=== PATIENT | female | born 1995 | race Caucasian/White ===

== ENCOUNTER 2022-03-26 09:24 | Outpatient (CLI) | payer BC, SELFPAY ==
[2022-03-26 11:37] LABS: Hepatitis B Surface Antigen* Negative (Negative)
[2022-03-26 11:54] LABS: Hepatitis C Virus Antibody* Negative (Negative)
[2022-03-26 13:10] LABS: HIV 1/2/P24 Combo Screen* Negative (Negative)
[2022-03-26 13:36] LABS: Chlamydia DNA Amplified* NOT DETECTED (No Detected); GC DNA Amplified* NOT DETECTED (No Detected)
[2022-03-27 17:49] LABS: Varicella-Zoster Virus Ab, IgG 132.1 IV
[2022-03-27 17:53] LABS: Rubella Antibody IgG 6.4 IU/mL
[2022-03-28 11:46] LABS: Rapid Plasma Reagin (RPR) Non Reactive (Non Reactive)
== END 2022-03-26 09:25 | disposition home or self-care (01) ==
PROVIDERS: PCP Family Medicine; Visit Provider Advanced Practice Midwife
DX: Z34.91 Encounter for supervision of normal pregnancy, unspecified, first trimester (principal); Z3A.08 8 weeks gestation of pregnancy
CPT/HCPCS: 76817; 86592; 86703; 86762; 86787; 86803; 86850; 86900; 86901; 87086; 87340; 87491; 87591; 93976

== ENCOUNTER 2022-05-03 12:48 | Outpatient (CLI) | payer BC, SELFPAY ==
--- OUTSIDE RECORDS SUMMARY | 2022-05-03 12:54 | XMS_ITS | Clinical Summary ---
:1995 Author Organization [email or web address] [facility] [employer] [facility] [place] [address] Care Team Providers Name Role Phone Pcp, No Primary Care Provider Unavailable Allergies No known active allergies Medications Medication Sig Dispensed Refills Start Date End Date Status acetaminophen (TYLENOL Take 1,000 mg by 0 12/23/2018 Active EXTRA STRGTH) 500 mg mouth. tablet ibuprofen (ADVIL; Take 1 tablet by 30 tablet 1 03/01/2019 Active MOTRIN) 600 mg mouth every 6 tabletIndications: hours. Maximum of Vaginal delivery 3200 mg in 24 hours. Breast Pump - For home use. 1 Device 0 03/01/2019 A ctive PurchaseIndications: Gestation age at Vaginal delivery delivery: 39 weeks. Reason for need: . Length of need: 99 months oxyCODONE (ROXICODONE) Take 1 Tablet (5 10 Tablet 0 03/26/2021 Active 5 mg immediate release mg) by mouth every tabletIndications: 4 hours if needed Lower abdominal pain for Pain. Active Problems Problem Noted Date Vaginal delivery 02/27/2019 Essential hypertension complicating or reason for care during 12/31/2018 care 09/03/2018 Overview: . SVDx1. FATMATA 03/12/19 by LMP/FTU FOB: Timmy H/o gestational hypertension A positive Rubella equivocal Normal Ob50 (76), Hg 12.3 Normal anatomy 10/29/18 Encounter for supervision of normal 09/03/19 Overview: . SVDx1. FATMATA 03/12/19 by LMP/FTU FOB: Timmy H/o gestational hypertension A positive Rubella equivocal Normal Ob50 (76), Hg 12.3 Normal anatomy 10/29/18 GBS negative CHTN/GHTN Unspecified asthma(493.90) Resolved Problems Problem Noted Date Resolved Date Other acne 04/17/2011 12/09/2018 Dysmenorrhea 04/17/2011 12/09/2018 Recurrent cold sores 04/17/2011 12/09/2018 Adjustment disorder with depressed mood 04/17/2011 12/09/2018 ADHD (attention deficit hyperactivity disorder) 08/11/2010 12/09/2018 Overview: Diagnosed in 5th grade Generalized headaches 08/11/2010 12/09/2018 Allergic rhinitis, cause unspecified 05/2019 Immunizations Name Administration Dates Next Due DTP-HIB 08/07/1996, 04/14/1996, 1995, 1995 DTaP 11/16/1999, 08/07/1996, 04/14/1996, 1995, 1995 HIB-HepB (Comvax) 08/07/1996, 04/14/1996, 1995, 1995 Hepatitis B (Peds) 05/02/2010, 08/07/1996, 1995, 1995 Hepatitis B, Unspecified 1995 Human Papilloma Virus Vaccine 09/01/2007, 04/29/2007, 200608/29/2007 Inactivated Polio Vaccine 11/16/1999, 04/14/1996, 1995 , 1995 Influenza A (H1N1), Inactivated (Age 1107/21/2009 >=3 Years) Influenza Virus, Unspecified 06/30/2014, 06/16/2012, 010, 07/26/2009, 07/05/2008, 07/18/2006, 07/27/2005 Influenza, High-dose Inactivated 09/03/2018, 05/24/2016 Influenza, IIV3 (Age 6-35 mos) 06/30/2014, 06/16/2012 Influenza, IIV3 (Age >=3 years) 07/14/2010, 07/26/2009, 11/0 11/2007, 07/18/2006, 07/27/2005 Influenza, IIV4 05/24/2016 MMR 04/14/1996 MMRV 11/16/1999 Meningococcal Vaccine (Menactra) 02/20/2007 Meningococcal Vaccine (Menveo) 08/19/2013 Polio Virus, Unspecified 11/16/1999, 04/14/1996, 1995, 1995 Td (Age >=7 Years) 02/13/2018 Tdap 12/31/2018, 02/20/2007 Varicella Vaccine 04/29/2007, 11/16/1999 Family History Medical History Relation Name Comments Good Health Brother Good Health Father Psychiatric illness Father adhd Hypertension Maternal Grandmother Hypertension Mother Other Mother migraines when s he was younger Good Health Sister Psychiatric illness Sister adhd No Known Problems Son Heart Disease No Family History Relation Name Status Comments Brother Father Maternal Grandmother Mother Sister Son Alive Social History Tobacco Use Types Packs/Day Years Used Date Never Smoker Smokeless Tobacco: Never Used Tobacco Cessation: Counseling Given: No Comments: No exposure. Alcohol Use Standard Drinks/Week Comments No 0 (1 standard drink = 0.6 oz pure alcoho l) Sex Assigned at Date Recorded Not on file Obstetrics History Para Term AB IAB SAB Ectopic Multiple Living Live Births 3 2 2 1 1 2 2 Date Outcome GA Total Labor/2nd/3rd Weight Sex Delivery Anes PTL Beena A 1 A5 Name Clin Labor 03/25 Term 38w 3.06 kg M Epidu N Essence /2012 0d (6 lb ral ng 12 oz) 05/22 SAB 18 02/27 Term 38w 0h 10m 3.11 kg M Vag IV Essence 8 9 KOKT 1d (6 lb Meds, ng VY,BB 13.7 Epidu QUE oz) ral ANY Delivery [facility]: [facility] ([facility]) Last Filed Vital Signs Vital Sign Reading Time Taken Comments Blood Pressure 119/80 03/26/2021 11:12 AM CDT Pulse 82 03/26/2021 11:26 AM CDT Temperature 36.7 ??C (98.1 ??F) 03/26/2021 7:06 AM CDT Respiratory Rate 18 03/26/2021 7:06 AM CDT Oxygen Saturation 96% 03/26/2021 11:26 AM CDT Inhaled Oxygen Concentration - - Weight 91.4 kg (201 lb 6.4 oz) 03/26/2021 7:06 AM CDT Height 149.9 cm (4' 11) 03/26/2021 7:06 AM CDT Body Mass Index 40.68 03/26/2021 7:06 AM CDT Plan of Treatment Health Maintenance Due Date Last Done Comments COVID-19 vaccine series (#1) 1995 Depression screening for age 12+ 2007 BMI (ht and wt on same day) for 2013 age 18+ Influenza for age 9-49 05/03/2022 05/24/2016, 06/30/2014, 06/16/2012, Additional history exists Pap test for age 21-65 04/17/2024 04/17/2021 Tetanus booster 12/31/2028 12/31/2018, 02/13/2018, 02/20/2007 Hepatitis C screening for age Completed 08/15/2012 18-79 Tdap Completed 12/31/2018, 02/20/2007 Results Not on filefrom Last 3 Months Insurance Payer Benefit Plan / Subscriber ID Effective Dates Phone Addre ss Type Group [employer] [place] [employer] [id number] 2020-Present [address] [address] [place] [address] Advance Directives Latest Code Status on File Code Status Date Activated Date Inactivated Comments Full Code 02/26/2019 1:58 PM 02/27/2019 6:24 PM Full Code 02/18/2019 3:25 PM 02/18/2019 7:14 PM Full Code 12/09/2018 10:53 PM 12/10/2018 4:31 AM Care Teams Senior Clinical Research Scientist Relationship Specialty Start Date End Date Pcp, No PCP - General 02/27/19 .
--- NOTE | 2022-05-03 13:00 | CRLHL7_ITS ---
For Patients: As a result of the Century Cures Act, medical imaging exams and procedure reports are released immediately into your electronic medical record. You may view this report before your referring provider. If you have questions, please contact your health care provider. INDICATION: Supervision of normal . TECHNIQUE: Ultrasound OB pelvis transabdominal and transvaginal. Real-time beasley-scale imaging of the pelvis was performed. COMPARISON: None. FINDINGS: There is a single intrauterine gestation. The embryo demonstrates a regular cardiac rate measuring 155 beats per minute. The embryo`s crown rump length measurement of 8.1 cm corresponds to a gestational age of 14 weeks 0 days with a sonographic due date of 11/01/2022. NT measures 1.8 mm. There is a normal appearing yolk sac. There are no gross abnormalities noted within the embryo at this early state of development. The placenta has not yet developed. Previously seen suspected subchorionic hemorrhage is no longer visualized. Prominent vessels anterior to the placenta The ovaries are of normal size. Right ovary measures 4.3 x 2.2 x 1.6 cm. Left ovary measures 7.2 x 5.8 x 5.6 cm. Left corpus luteum cyst left ovary measuring 6.1 x 5.4 x 5.0 cm per there are no suspicious fluid collections noted in the cul-de-sac. IMPRESSION: 1. Single live intrauterine with estimated gestational age of 14 weeks 0 day. Estimated date of delivery 11/01/2022. 2. Previously seen subchorionic hemorrhage has resolved. 3. Heterogeneous area anterior to the placenta with prominent vessels and hypervascularity of unknown significant. Consider level 2 ultrasound to exclude placenta accreta. 4. NT measures 1.8 mm Dictated by Sohan Joel MD @ 05/04/2022 7:37:19 AM (Electronically Signed)
== END 2022-05-03 12:49 | disposition home or self-care (01) ==
LOC: US 12:49
PROVIDERS: PCP Family Medicine; Visit Provider Obstetrics & Gynecology
DX: Z34.92 Encounter for supervision of normal pregnancy, unspecified, second trimester (principal); Z3A.14 14 weeks gestation of pregnancy
CPT/HCPCS: 36415; 76801; 76813; 84163; 84702

== ENCOUNTER 2022-05-21 09:05 | Outpatient (CLI) | payer BC, SELFPAY ==
--- OUTSIDE RECORDS SUMMARY | 2022-05-21 09:13 | XMS_ITS | Clinical Summary ---
:1995 Author Organization [employer] [facility] [employer] [facility] [place] [address] Care Team Providers Name Role Phone Pcp, [...] Epidu QUE oz) ral ANY Delivery Location: [facility] ([facility]) Last Filed Vital Signs Vital [...] Phone Addre ss Type Group [employer] [place] [employer] [id number] 2020-Present [address] [address] [place] [address] Advance Directives Latest Code Status on File Code Status Date Activated Date Inactivated Comments Full Code 02/26/2019 1:58 PM 02/27/2019 6:24 PM Full Code 02/18/2019 3:25 PM 02/18/2019 7:14 PM Full Code 12/09/2018 10:53 PM 12/10/2018 4:31 AM Care Teams Zoning Technician Relationship Specialty Start Date End Date Pcp, No PCP - General 02/27/19 .
[2022-05-21 14:18] LABS: Alanine Aminotransferase* 23 U/L (4-35); Aspartate Amino Transferase* 24 U/L (12-35); Bilirubin Direct* 0.2 mg/dL (0.0-0.5); Bilirubin Total* 0.4 mg/dL (0.1-1.5)
[2022-05-22 07:35] LABS: Creatinine* 0.5 mg/dL (0.5-1.5); Estimated Glomerular Filt Rate 132 ml/min
== END 2022-05-21 09:06 | disposition home or self-care (01) ==
PROVIDERS: PCP Family Medicine; Visit Provider Obstetrics & Gynecology
DX: Z34.92 Encounter for supervision of normal pregnancy, unspecified, second trimester (principal); R82.2 Biliuria; I10 Essential (primary) hypertension; Z3A.16 16 weeks gestation of pregnancy
CPT/HCPCS: 82247; 82248; 82565; 84450; 84460; 87086

== ENCOUNTER 2022-05-24 09:05 | Outpatient (CLI) | payer BC, SELFPAY ==
--- OUTSIDE RECORDS SUMMARY | 2022-05-24 08:44 | XMS_ITS | Clinical Summary ---
:1995 Author Organization [employer] [facility] [employer] [facility] [place] [address] Care Team Providers Name Role Phone Pcp, [...] Epidu QUE oz) ral ANY Delivery Location: [facility] ([facility]) Last Filed Vital Signs Vital [...] Type Group [employer] [place] [employer] [id number] 2020-Present [address] [address] [place] [address] Advance Directives Latest Code Status on File Code Status Date Activated Date Inactivated Comments Full Code 02/26/2019 1:58 PM 02/27/2019 6:24 PM Full Code 02/18/2019 3:25 PM 02/18/2019 7:14 PM Full Code 12/09/2018 10:53 PM 12/10/2018 4:31 AM Care Teams Metal Cabinet Finisher Relationship Specialty Start Date End Date Pcp, No PCP - General 02/27/19 .
[2022-05-24 10:57] LABS: Creatinine Urine 221.7 mg/dL; Total Protein Urine < 5 mg/dL
[2022-05-24 23:48] LABS: Collection Time Urine 24 Hours; Total Protein 24 Hour Urine 35 mg/dL; Total Volume 24 Hour Urine 700 ml; Urine Creatinine mg/24 Hour 0 mg/Day
== END 2022-05-24 09:06 | disposition home or self-care (01) ==
PROVIDERS: PCP Family Medicine; Visit Provider Obstetrics & Gynecology
DX: I10 Essential (primary) hypertension (principal)
CPT/HCPCS: 82570; 84156

== ENCOUNTER 2022-06-13 12:41 | Outpatient (CLI) | payer BC, SELFPAY ==
--- OUTSIDE RECORDS SUMMARY | 2022-06-13 12:58 | XMS_ITS | Clinical Summary ---
:1995 Author Organization [employer] [facility] [employer] [facility] [place] [address] Care Team Providers Name Role Phone Pcp, [...] Epidu QUE oz) ral ANY Delivery Location: [facility] ([facility]) Last Filed Vital Signs Vital [...] Phone Addre ss Type Group [employer] [place] [employer] [id number] 2020-Present [address] [address] [place] [address] Advance Directives Latest Code Status on File Code Status Date Activated Date Inactivated Comments Full Code 02/26/2019 1:58 PM 02/27/2019 6:24 PM Full Code 02/18/2019 3:25 PM 02/18/2019 7:14 PM Full Code 12/09/2018 10:53 PM 12/10/2018 4:31 AM Care Teams Wireless Sales Representative Relationship Specialty Start Date End Date Pcp, No PCP - General 02/27/19 .
== END 2022-06-13 12:42 | disposition home or self-care (01) ==
LOC: US 12:42
PROVIDERS: PCP Family Medicine; Visit Provider Pediatrics Neonatal-Perinatal Medicine
DX: O10.912 Unspecified pre-existing hypertension complicating pregnancy, second trimester (principal); Z3A.19 19 weeks gestation of pregnancy
CPT/HCPCS: 76811

== ENCOUNTER 2022-07-13 09:37 | Outpatient (CLI) | payer BC, SELFPAY ==
--- OUTSIDE RECORDS SUMMARY | 2022-07-13 09:51 | XMS_ITS | Clinical Summary ---
:1995 Author Organization [employer] [facility] [employer] [facility] [place] [address] Care Team Providers Name Role Phone Pcp, [...] Epidu QUE oz) ral ANY Delivery Location: [facility] ([facility]) Last Filed Vital Signs Vital [...] Phone Addre ss Type Group [employer] [place] [employer] [id number] 2020-Present [address] [address] [place] [address] Advance Directives Latest Code Status on File Code Status Date Activated Date Inactivated Comments Full Code 02/26/2019 1:58 PM 02/27/2019 6:24 PM Full Code 02/18/2019 3:25 PM 02/18/2019 7:14 PM Full Code 12/09/2018 10:53 PM 12/10/2018 4:31 AM Care Teams Medical Fee Clerk Relationship Specialty Start Date End Date Pcp, No PCP - General 02/27/19 .
== END 2022-07-13 09:38 | disposition home or self-care (01) ==
LOC: NFLDREF 09:38
PROVIDERS: PCP Family Medicine; Visit Provider Obstetrics & Gynecology
DX: O26.899 Other specified pregnancy related conditions, unspecified trimester (principal); M54.50 Low back pain, unspecified
CPT/HCPCS: 87086

== ENCOUNTER 2022-08-08 09:06 | Outpatient (CLI) | payer BC, SELFPAY ==
--- OUTSIDE RECORDS SUMMARY | 2022-08-08 09:08 | XMS_ITS | Clinical Summary ---
:1995 Author Organization [employer] [facility] [employer] [facility] [place] [address] Care Team Providers Name Role Phone Pcp, [...] Epidu QUE oz) ral ANY Delivery Location: [facility] ([facility]) Last Filed Vital Signs [...] 04/17/2021 Tetanus booster 12/31/2028 12/31/2018, 02/13/2018, 02/20/2007 HIV for age 15-65 Completed 08/15/2012 Hepatitis C screening for age Completed 08/15/2012 18-79 Tdap Completed 12/31/2018, 02/20/2007 Results Not on filefrom Last 3 Months Insurance Payer Benefit Plan / Subscriber ID Effective Dates Phone Addre ss Type Group [employer] [place] [employer] [id number] 2020-Present [address] [address] [place] [address] Advance Directives Latest Code Status on File Code Status Date Activated Date Inactivated Comments Full Code 02/26/2019 1:58 PM 02/27/2019 6:24 PM Full Code 02/18/2019 3:25 PM 02/18/2019 7:14 PM Full Code 12/09/2018 10:53 PM 12/10/2018 4:31 AM Care Teams Product Developer Relationship Specialty Start Date End Date Pcp, No PCP - General 02/27/19 .
[2022-08-10 10:47] LABS: Rapid Plasma Reagin (RPR) Non Reactive (Non Reactive)
== END 2022-08-08 09:07 | disposition home or self-care (01) ==
LOC: NFLDREF 09:06
PROVIDERS: PCP Family Medicine; Visit Provider Obstetrics & Gynecology
DX: Z34.90 Encounter for supervision of normal pregnancy, unspecified, unspecified trimester (principal)
CPT/HCPCS: 86592

== ENCOUNTER 2022-08-27 21:06 | Outpatient (CLI) | payer BC, SELFPAY ==
[2022-08-27] VITALS (11 sets, daily range): BP systolic 125–146; BP diastolic 70–88; PULSE 8–105; O2SAT 80–99
[2022-08-27 22:29] LABS: Hematocrit 33.9 % (33.0-51.0); Hemoglobin* 11.5 gm/dL (12.0-16.0); Mean Corpuscular HGB Conc 34 gm/dL (32-36); Mean Corpuscular Hemoglobin 28 pg (26-34); Mean Corpuscular Volume 84 fL (80-100); Platelet Count* 213 K/uL (140-440); Red Blood Count 4.05 m/uL (4.00-5.20); White Blood Count* 6.25 K/uL (4.50-11.00)
[2022-08-27 22:34] LABS: Prothrombin Time 13.8 Seconds
[2022-08-27 22:35] LABS: Alanine Aminotransferase* 18 U/L (4-35); Aspartate Amino Transferase* 29 U/L (12-35); Blood Urea Nitrogen* 5 mg/dL (5-24); Creatinine* 0.5 mg/dL (0.5-1.5); Estimated Glomerular Filt Rate 132 ml/min; Fibrinogen* 449 mg/dL (200-450); Slide Review Reflex No
[2022-08-27 23:03] LABS: Total Protein Urine < 5 mg/dL
[2022-08-27 23:04] LABS: Creatinine Urine 310.4 mg/dL
--- NOTE | 2022-08-28 00:02 | PC.OBNST ---
NST Note NST Note Start: 08/27/22 21:30 Freq: ONCE Status: Active Protocol: Document 08/28/22 00:00 KORI (Rec: 08/28/22 00:01 [facility] [id number]) NST Note 4 Para (# of births) 2 EDC 11/01/22 Gestational Age In Weeks & Days 30 Weeks & 5 Days High Risk Factors High Blood Pressure - Preexisting Patient Presented with Complaint(s) of Decreased movement Other Complaints High blood pressures at home. Reactive Yes Appropriate for Gestational Age Yes LAUREANO Guardado, RN Date 08/27/22 Reactive Yes Appropriate for Gestational Age Yes LAUREANO Francis RN Date 08/27/22 OB NST charge Yes Complete NST Note via Write Note Yes The provider's electronic signature indicates the NST is reactive/appropriate for gestational age. *Note to provider: If an addendum is required, open the patient's chart and click on the note under the Nurse/Allied Health tab.
== END 2022-08-27 23:39 | disposition home or self-care (01) ==
LOC: OB OUT 21:07 → OB 21:08
PROVIDERS: PCP Family Medicine; Visit Provider Obstetrics & Gynecology
DX: Z34.93 Encounter for supervision of normal pregnancy, unspecified, third trimester (principal); Z3A.30 30 weeks gestation of pregnancy
CPT/HCPCS: 36415; 59025; 82565; 82570; 84156; 84450; 84460; 84520; 85027; 85384; 85610; 99213

== ENCOUNTER 2022-09-07 12:41 | Outpatient (CLI) | payer BC, SELFPAY ==
--- NOTE | 2022-09-07 13:00 | CRLHL7_ITS ---
For Patients: As a result of the Century Cures Act, medical imaging exams and procedure reports are released immediately into your electronic medical record. You may view this report before your referring provider. If you have questions, please contact your health care provider. INDICATION: Third trimester scan, evaluate growth. COMPARISON: 08/13/2022 TECHNIQUE: Real time beasley scale imaging of the fetus was performed. FINDINGS: Sonographic imaging demonstrates a single living intrauterine gestation. Fetus demonstrates a regular cardiac rate of 134 beats per minute. Fetus has a vertex position. The placenta lies anteriorly. Amniotic fluid volume appears normal and there is a single deepest vertical pocket: 4.2 cm. The estimated weight is 1868gm which lies at the 33rd %. On the prior OB ultrasound exam dated 08/13/2022 the estimated weight was at the 28th%. BPD 39th percentile. HC 42nd percentile. AC 60th percentile. FL 6th percentile. The HC/AC ratio measures 1.05 range (0.96-1.14). IMPRESSION: Sonographic gestational age 32 weeks 1 day and sonographic due date of 11/01/2022. Good correlation with dates. Normal interval growth. Estimated weight 33rd percentile. Abdominal circumference 60th percentile. Normal amniotic fluid with single deepest pocket 4.2 cm. Dictated by Horacio Perez MD @ 09/09/2022 9:18:30 AM (Electronically Signed)
== END 2022-09-07 12:42 | disposition home or self-care (01) ==
PROVIDERS: PCP Family Medicine; Visit Provider Obstetrics & Gynecology
DX: O10.913 Unspecified pre-existing hypertension complicating pregnancy, third trimester (principal); Z3A.32 32 weeks gestation of pregnancy
CPT/HCPCS: 76816

== ENCOUNTER 2022-09-23 15:03 | Outpatient (CLI) | payer BC, SELFPAY ==
[2022-09-23] VITALS (35 sets, daily range): BP systolic 125–156; BP diastolic 79–121; PULSE 80–104; RESP 16; TEMP 36.2–36.6; O2SAT 95–99; BMI 40.0
--- NOTE | 2022-09-23 15:28 | RESP.RT ---
Patient has history of Asthma, no home respiratory medications. On room air, SaO2 97%, breathing regular/easy, rate 16/minute. BBS with good air movement on the right, good air movement on the left with end expiratory musical wheeze.
--- NOTE | 2022-09-23 15:30 | ED.NURSE ---
OB RN in room for OB assessment.
--- NOTE | 2022-09-23 15:40 | ED.SOB ---
HPI - SOB/Dyspnea General Chief Complaint: Shortness of Breath/Dyspnea Stated Complaint: Asthma Time Seen by Provider: 09/23/22 15:06 History of Present Illness HPI Narrative: This 27-year-old female is 34 weeks . She comes in reporting some shortness of breath. She states that she and her were doing some construction type of work in the basement and she began to feel short of breath yesterday. She states that her symptoms have persisted into today. She does not use any ongoing medicines for breathing but states that she has had some reactive airway symptoms in the past. She does not report any fevers. She arrives with normal vital signs regarding her breathing. Her oximetry is at 96% on room air and her pulse is in normal range. She is not using accessory muscles for breathing. She also states that she has not felt the baby moving for the past 5-6 hours. Related Data Home Medications Medication Instructions Recorded Confirmed vitamins no.144-folic 2 tab PO DAILY 08/27/22 09/21/22 acid 400 mcg chewable tablet () Previous Rx's Medication Instructions Recorded labetalol 100 mg tablet 100 mg PO BID #30 tabs 06/12/22 omeprazole 20 mg capsule,delayed 20 mg PO QDAY #30 caps 09/14/22 release sertraline 100 mg tablet See Rx Instructions .Route 09/14/22 .COMPLEX #90 tabs Allergies Allergy/AdvReac Type Severity Reaction Status Date / Time No Known Allergies Allergy Verified 09/21/22 14:26 Review of Systems Status of ROS: Reports: 10 or more systems reviewed and unremarkable except as noted in History and below Narrative: Constitutional: No fevers, no weight gain or loss. Eyes: No discharge. No vision changes. HENT: No congestion, no sore throat, no ear pain. Cardiovascular: No chest pain, no palpitations. Respiratory: Shortness of breath as described above. Occasional cough. Gastrointestinal: No abdominal pain, no vomiting, no diarrhea. Genitourinary: No dysuria, no hematuria. Musculoskeletal: Normal range of motion. Skin: No rashes, no pruritis. Neurological: No dizziness, weakness, sensory change, speech change. Endo/Heme/Allergies: No bruising or bleeding. No polydipsia. Pysch: no suicidality, no anxiety, no insomnia. All other systems reviewed and are negative. [facility] Medical History (Updated 09/23/22 @ 17:34 by Howard Tang MD) Anxiety Asthma History of endometriosis Hypertension Migraines Vaginal delivery (02/27/19) Surgical History (Updated 09/14/22 @ 14:07 by Catie Wilson MD) History of tonsillectomy Status post laparoscopy (05/10/21) [place] teeth extracted Family History (Updated 03/26/22 @ 16:51 by Susu Meléndez CNM) Paternal Grandmother Breast cancer, Onset Age: 65 Paternal Grandfather Colon cancer, Onset Age: 70 Prostate cancer Uncle Suicide Family/Other Heart disease Father High blood pressure Mother High blood pressure Sister High blood pressure Brother High blood pressure Social History (Updated 03/20/22 @ 11:04 by Rayshawn Gonzalez) Narrative: current non-drinker of alcohol non-smoker Smoking Status: Never smoker How often do you have a drink containing alcohol: never How often do you have six or more drinks on one occasion: Never AUDIT-C Alcohol total score: 0 Non-prescribed substance use: denies use Little interest or pleasure in doing things: not at all Feeling down, depressed, or hopeless: not at all Exam Narrative: Exam Narrative: Constitutional: Well-developed, well-nourished, no acute distress. HEENT: Normocephalic, atraumatic. Neck: Normal range of motion. Nontender. Supple. Heart: Regular. No murmurs. Normal rate. Intact distal pulses. Lungs: A few faint wheezes are heard at the end of expiration bilaterally. Abdomen: Gravid. Normal bowel sounds. Nontender. No rebound tenderness. Genitalia: Deferred. Back: No midline tenderness. Normal range of motion. Extremities: Normal range of motion. No injury. Skin: Intact. No rash. Warm. No erythema or pallor. Neurologic: No altered sensation. No weakness. Alert and oriented. Psychiatric: No suicidality. No anxiety or depression. No insomnia. Nursing notes and vitals signs are reviewed. Const: Vital Signs, click to edit/add: Vital Signs - 24 hr 09/23/22 15:05 09/23/22 15:19 09/23/22 15:30 Temperature 97.1 F L Pulse Rate 93 93 Pulse Rate [Pulse Oximeter] 94 Blood Pressure Blood Pressure [Ri ght Upper Arm] 151/121 H Pulse Oximetry 95 97 96 Oxygen Delivery Me thod Room Air 09/23/22 15:45 09/23/22 15:48 09/23/22 15:49 Temperature Pulse Rate 92 96 80 Pulse Rate [Pulse Oximeter] Blood Pressure 147/95 H Blood Pressure [Ri ght Upper Arm] Pulse Oximetry 95 95 99 Oxygen Delivery Me thod 09/23/22 15:54 09/23/22 15:55 09/23/22 16:00 Temperature Pulse Rate 93 93 89 Pulse Rate [Pulse Oximeter] Blood Pressure 125/90 H Blood Pressure [Ri ght Upper Arm] Pulse Oximetry 99 99 99 Oxygen Delivery Me thod 09/23/22 16:01 09/23/22 16:02 09/23/22 16:15 Temperature Pulse Rate 86 87 90 Pulse Rate [Pulse Oximeter] Blood Pressure 132/91 H Blood Pressure [Ri ght Upper Arm] Pulse Oximetry 97 95 96 Oxygen Delivery Me thod 09/23/22 16:19 09/23/22 16:30 09/23/22 16:32 Temperature Pulse Rate 80 83 85 Pulse Rate [Pulse Oximeter] Blood Pressure 134/85 138/90 H Blood Pressure [Ri ght Upper Arm] Pulse Oximetry 98 99 98 Oxygen Delivery Me thod 09/23/22 16:33 09/23/22 16:45 09/23/22 16:47 Temperature Pulse Rate 87 96 92 Pulse Rate [Pulse Oximeter] Blood Pressure 145/83 H Blood Pressure [Ri ght Upper Arm] Pulse Oximetry 99 99 97 Oxygen Delivery Me thod 09/23/22 16:48 09/23/22 17:00 09/23/22 17:02 Temperature Pulse Rate 94 89 86 Pulse Rate [Pulse Oximeter] Blood Pressure 147/102 H Blood Pressure [Ri ght Upper Arm] Pulse Oximetry 98 99 99 Oxygen Delivery Me thod 09/23/22 17:03 09/23/22 17:15 09/23/22 17:17 Temperature Pulse Rate 103 H 98 96 Pulse Rate [Pulse Oximeter] Blood Pressure 144/90 H Blood Pressure [Ri ght Upper Arm] Pulse Oximetry 99 99 99 Oxygen Delivery Me thod Course Vital Signs Vital signs: Initial Vital Signs Temperature 97.1 F L 09/23/22 15:05 Temperature Source Temporal Artery Scan 09/23/22 15:05 Pulse Rate 94 09/23/22 15:05 Blood Pressure 151/121 H 09/23/22 15:05 Blood Pressure Mean 131 09/23/22 15:05 Blood Pressure Position Supine 09/23/22 15:05 Pulse Oximetry 95 09/23/22 15:05 Oxygen Delivery Method 09/23/22 15:05 Vital Signs Temperature 97.1 F L 09/23/22 15:05 Pulse Rate 94 09/23/22 15:05 Blood Pressure 151/121 H 09/23/22 15:05 Pulse Oximetry 95 09/23/22 15:05 Oxygen Delivery Method 09/23/22 15:05 Temperature 97.1 F L 09/23/22 15:05 Pulse Rate 96 09/23/22 17:17 Blood Pressure 144/90 H 09/23/22 17:17 Pulse Oximetry 99 09/23/22 17:17 Oxygen Delivery Method 09/23/22 15:05 MDM - SOB/Dyspnea MDM Narrative Medical decision making narrative: This patient comes in reporting some shortness of breath. She does have few very faint wheezes at the end of expiration. She does arrive with blood pressure at 150/110. She did receive a DuoNeb treatment and during this process her heart rate stayed stable and her blood pressure reduced down into the 120s. monitoring shows normal findings. She did also express concern that she might be leaking some fluid. AmniSure returns negative. An OB nurse was here to monitor the patient. At the time of discharge it is noted that her blood pressure increased again to 143/103. The patient tells me that she did not take her labetalol. Apparently she is taking 100 mg twice a day and is due to take it about an hour prior to the time of discharge. I did speak with Dr. Foster who wishes to have the patient transferred over to the Center to be monitored for a couple more hours regarding these matters. Lab Data Labs: Lab Results 09/23/22 Range/Units 16:05 Membrane Rupture Negative Discharge Plan Discharge Clinical Impression: Mild reactive airways disease, , Elevated blood pressure affecting in third trimester, antepartum Patient Disposition: Admitted As Inpatient Prescriptions: No Action omeprazole 20 mg capsule,delayed release(DR/EC) 20 mg PO QDAY Qty: 30 2RF 400 mcg tablet,chewable 2 tab PO DAILY labetalol 100 mg tablet 100 mg PO BID Qty: 30 2RF sertraline 100 mg tablet See Rx Instructions .ROUTE .COMPLEX Qty: 90 0RF Dose Instruction: TAKE 1 TABLET BY MOUTH EVERY DAY Rx Instructions: TAKE 1 TABLET BY MOUTH EVERY DAY Follow Up/Referrals: Horacio Santana MD [Primary Care Provider] -
[2022-09-23] MEDS: IPRAT-ALBUT 0.5-2.5 MG/3 ML NEB 1 NEB IH (15:47)
--- NOTE | 2022-09-23 16:13 | RESP.RT ---
DuoNeb given with On demand nebulizer, at 6 Lpm Oxygen flow meter. Pre-treatment SaO2 99%, B/P 147/95, 5 minutes into treatment SaO2 99%, B/P 125/90, post treatment SaO2 97% on room air, B/P 132/91. Patient able to take larger breath. BBS more air movement, slight louder end expiratory wheeze noted
[2022-09-23 17:14] LABS: Amnisure Rom* Negative
[2022-09-23] MEDS: LABETALOL HCL 100 MG TABLET PO (17:59)
[2022-09-23 18:46] LABS: Hematocrit 35.7 % (33.0-51.0); Hemoglobin* 11.7 gm/dL (12.0-16.0); Mean Corpuscular HGB Conc 33 gm/dL (32-36); Mean Corpuscular Hemoglobin 27 pg (26-34); Mean Corpuscular Volume 83 fL (80-100); Platelet Count* 207 K/uL (140-440); Red Blood Count 4.29 m/uL (4.00-5.20); White Blood Count* 6.81 K/uL (4.50-11.00)
[2022-09-23 18:47] LABS: Slide Review Reflex No
[2022-09-23 18:58] LABS: Total Protein Urine 8 mg/dL
[2022-09-23 18:58] LABS: Alanine Aminotransferase* 19 U/L (4-35); Aspartate Amino Transferase* 50 U/L (12-35); Blood Urea Nitrogen* 7 mg/dL (5-24); Creatinine* 0.5 mg/dL (0.5-1.5); Est. Creatinine Clearance* 239.62; Estimated Glomerular Filt Rate 132 ml/min
[2022-09-23 19:00] LABS: Creatinine Urine 256.7 mg/dL
--- NOTE | 2022-09-23 20:35 | PC.OBNST ---
NST Note NST Note Start: 09/23/22 17:49 Freq: ONCE Status: Discharge Protocol: Document 09/23/22 20:32 AVL (Rec: 09/23/22 20:35 AVL [id number]) NST Note 4 Para (# of births) 2 EDC 11/01/22 Gestational Age In Weeks & Days 34 Weeks & 3 Days High Risk Factors High Blood Pressure - Preexisting Patient Presented with Complaint(s) of Decreased movement If Observation after an injury, describe came in to the ED for asthma Reactive Yes Appropriate for Gestational Age Yes LAUREANO Francis RN Date 09/23/22 Reactive Yes Appropriate for Gestational Age Yes LAUREANO Monroe RNC Date 09/23/22 OB NST charge Yes Complete NST Note via Write Note Yes The provider's electronic signature indicates the NST is reactive/appropriate for gestational age. *Note to provider: If an addendum is required, open the patient's chart and click on the note under the Nurse/Allied Health tab.
== END 2022-09-23 20:10 | disposition home or self-care (01) ==
LOC: ED 17:38 → OB OUT 17:42 → OB 17:44
PROVIDERS: Emergency Provider Emergency Medicine Emergency Medical Services; PCP Family Medicine; Visit Provider Obstetrics & Gynecology
DX: O36.8130 Decreased fetal movements, third trimester, not applicable or unspecified (principal); O10.913 Unspecified pre-existing hypertension complicating pregnancy, third trimester; Z3A.34 34 weeks gestation of pregnancy
CPT/HCPCS: 36415; 59025; 82565; 82570; 84112; 84156; 84450; 84460; 84520; 85027; 94640; 99213; 99285; A9270

== ENCOUNTER 2022-09-27 13:48 | Outpatient (CLI) | payer BC, SELFPAY ==
[2022-09-27 17:37] LABS: Alanine Aminotransferase* 20 U/L (4-35); Aspartate Amino Transferase* 31 U/L (12-35); Creatinine* 0.6 mg/dL (0.5-1.5); Estimated Glomerular Filt Rate 126 ml/min
[2022-09-27 17:38] LABS: Blood Urea Nitrogen* 5 mg/dL (5-24)
[2022-09-27 19:44] LABS: Total Protein Urine < 5 mg/dL
[2022-09-27 20:21] LABS: Creatinine Urine 448.6 mg/dL
== END 2022-09-27 13:49 | disposition home or self-care (01) ==
PROVIDERS: PCP Family Medicine; Visit Provider Obstetrics & Gynecology
DX: O10.913 Unspecified pre-existing hypertension complicating pregnancy, third trimester (principal); Z3A.35 35 weeks gestation of pregnancy
CPT/HCPCS: 82565; 82570; 84156; 84450; 84460; 84520

== ENCOUNTER 2022-10-04 08:26 | Outpatient (CLI) | payer BC, SELFPAY ==
--- NOTE | 2022-10-04 08:45 | CRLHL7_ITS ---
For Patients: As a result of the Century Cures Act, medical imaging exams and procedure reports are released immediately into your electronic medical record. You may view this report before your referring provider. If you have questions, please contact your health care provider. INDICATION: HYPERTENSION TECHNIQUE: Real time beasley scale imaging of the fetus was performed as well as color Doppler and spectral Doppler analysis of the umbilical artery. COMPARISON: 09/07/2022 FINDINGS: Sonographic imaging demonstrates a single living intrauterine gestation. Fetus demonstrates a regular cardiac rate of 148 beats per minute. Fetus has a vertex position. The placenta lies anteriorly. Amniotic fluid volume appears normal and there is a single deepest pocket of 4.3 cm. The estimated weight is 2616gm which lies at the 29th %. On the prior OB ultrasound dated 09/07/2022 the estimated weight was at the 33rd percentile. BPD 52nd percentile. HC 73rd percentile. AC 42nd percentile. FL less than 3rd percentile. The fetus was active and demonstrated normal breathing movements. There was normal flexion and extension of the trunk and extremities. IMPRESSION: Normal biophysical profile score 8/8. Sonographic gestational age 35 weeks 5 days and sonographic due date of 11/03/2022. Good correlation with dates. Normal interval growth. Estimated weight 29th percentile. Abdominal circumference 42nd percentile. Femur length less than 3rd percentile. Dictated by Horacio Perez MD @ 10/04/2022 2:20:34 PM (Electronically Signed)
== END 2022-10-04 08:27 | disposition home or self-care (01) ==
LOC: US 08:27
PROVIDERS: PCP Family Medicine; Visit Provider Obstetrics & Gynecology
DX: O10.913 Unspecified pre-existing hypertension complicating pregnancy, third trimester (principal); Z3A.35 35 weeks gestation of pregnancy
CPT/HCPCS: 76816; 76819; 82565; 82570; 84156; 84450; 84460; 84520; 87081; 87653

== ENCOUNTER 2022-10-10 16:12 | Inpatient (IN) | payer BC, SELFPAY ==
[2022-10-10 16:35] VITALS: PULSE 101; O2SAT 98
[2022-10-10 16:36] VITALS: BP 136/85; PULSE 108
[2022-10-10 16:49] VITALS: BMI 41.8
[2022-10-10 16:58] VITALS: TEMP 36.7
[2022-10-10 17:39] LABS: SARS PCR* Negative SARS-CoV-2 (Negative)
[2022-10-10 17:47] LABS: Basophils Absolute Auto 0.01 K/uL (0.00-0.30); Basophils Percent Auto 0.1 % (0.0-3.0); Eosinophils Percent Auto 1.1 % (0.0-7.0); Hematocrit 31.8 % (33.0-51.0); Hemoglobin* 10.2 gm/dL (12.0-16.0); Immature Granulocytes Pct Auto 1.1 %; Lymphocytes Percent Auto 19.9 % (20-44); Mean Corpuscular HGB Conc 32 gm/dL (32-36); Mean Corpuscular Hemoglobin 27 pg (26-34); Mean Corpuscular Volume 84 fL (80-100); Neutrophils Absolute Auto 6.54 K/uL (1.7-7.0); Neutrophils Percent Auto 71.8 % (42.0-72.0); Platelet Count* 206 K/uL (140-440); RDW Coefficient of Variation % 12.9 % (11.5-15.5); Red Blood Count 3.79 m/uL (4.00-5.20); White Blood Count* 9.11 K/uL (4.50-11.00)
[2022-10-10 17:51] LABS: Slide Review Reflex No
[2022-10-10] MEDS: miSOPROStoL 25 MCG/0.25 TABLET VAGINAL ×2 (18:01→21:56)
--- NOTE | 2022-10-10 18:40 | P.LDBA_ITS ---
Subjective History of Present Illness Date Seen: 10/10/22 Narrative: Kylah is a 27 yo admitted to Labor and Delivery for induction of labor for Chronic HTN well controlled on medication. Her full history and physical was dictated by Dr. Baxter on 10/04/2022. Please see this for details. OB Problem list: 1. Chronic HTN-on 100mg Labetalol BID. IOL for elevated BP for both her previous children at 37 weeks (Preeclampsia vs Gest HTN?) * ASA at 12 weeks recommended. * 24 hour urine protein: 05/24/2022 35 mg * Growth ultrasounds at 32 and 36 weeks gestation: * 09/07/2022: EFW 4 lb 2 oz (32%), BPD 39%, HC 33%, AC 60%, FL 6%, SDP 4.2 cm * Weekly pre E labs starting at 32 week * 09/23/25 ED visit ( for SOB and had elevated BPs, then had center monitoring): BUN 7, creatinine 0.5, AST 50H, ALT 19. pr/cr ratio: 0.00 * 10/04/2022:USN: Vtx. BPP 8/8. SDP 4.3cm. EFW 2616 g, 5 lb 12 oz, 29%. BPD 52%, HC 73%, AC 42%, FL ,3% * 10/04/2022: Hemoglobin 10.8, platelets 194, BUN 7, creatinine 0.6, AST 33, ALT 18, urine protein/creatinine ratio: 0.01 * Antepartum testing weekly beginning at 32 weeks: scheduled * BMTZ on 10/04 and 10/05/2022 * IOL scheduled: ripening on 10/10/22 followed by pitocin IOL on 10/11/22 due to exacerbation of BP at 36wks. 2. Hx asthma 3. BMI 42.2 4. Left ovarian cyst found on dating [place]. Hx of a ruptured cyst. 5. Varicella and Rubella non-immune NEED MMR and Varicella vaccine pp 6. Increased anxiety/depression secondary to work stress * [facility] leave of absence 04/17/22 - 07/10/22 * start sertaline 50 mg po daily (04/23/22) * Sertraline increased to 100 mg p.o. daily (06/13/2022) 7. On NT US a area of prominent vessels and hypervascularity. Recommendation to consider a level 2 US to exclude placenta accreta: no apparent accreta. 8. Bilirubinuria (05/21/2022) * ALT, ALT, bilirubin: All normal 9. Suspected vasovagal event on 07-11-22 10. GERD, not responsive to diet, Tums and Pepcid. Begin omeprazole at 33 weeks. OB - Problem Based A/P Additional Plan (1) Encounter for induction of labor: Status: Acute (2) Chronic hypertension affecting : Status: Acute Plan ASSESSMENT:? 27 at 36 6/7 weeks gestation? complicated by:? 1. Chronic HTN-on 100mg Labetalol BID. 2. Hx asthma 3. BMI 42.2 4. Left ovarian cyst found on dating [place]. Hx of a ruptured cyst. 5. Varicella and Rubella non-immune NEED MMR and Varicella vaccine pp 6. Increased anxiety/depression secondary to work stress 7. On NT US a area of prominent vessels and hypervascularity. Recommendation to consider a level 2 US to exclude placenta accreta: no apparent accreta. 8. Bilirubinuria (05/21/2022) 9. Suspected vasovagal event on 07-11-22 10. GERD, not responsive to diet, Tums and Pepcid. Begin omeprazole at 33 weeks. Labor type: induced? Category 1 FHR pattern.?? Labor complicated by: Chronic HTN managed with medications. ? GBS negative? ? PLAN:? 1. Routine intrapartum cares as ordered. Induction started with Cytotec per protocol, patient declines Cook catheter. CNM team to manage labor per patient request due to [place]. Desires [facility] staff. 2. Monitoring per policy, continuous for Chronic HTN, patient has been stable on BP medications since beginning of . ? 3. Planning nitrous for . Candidate for analgesia of choice if desires.?? 4. Patient encouraged to reposition and ambulate to promote physiologic labor and .? 5. Anticipate ? Delivery/Labor/Induction Plan Plan: induction Induction method: per misoprostol protocol OB Exam Physical Exam Vital signs: Temp Pulse BP Pulse Ox 98.1 F 108 H 136/85 98 10/10/22 16:58 10/10/22 16:36 10/10/22 16:36 10/10/22 16:35 Narrative: Vitals Reviewed? Psychiatric:? Alert and oriented x3? HEENT:? Normocephalic, atraumatic? Neck:? Supple?? Lungs:? Clear to auscultation bilaterally? Heart:? Regular rate and rhythm, no murmur, rub or gallop? Abdomen:? Soft, nontender, and gravid. Vertex confirmed with cervical exam.? Extremities:? No edema or erythema? Detailed Labor and Delivery Exam Patient Gravid: Yes Dilation (cm): 1 Effacement (%): 40 Cervix position: posterior Consistency: soft Contraction Frequency: none Tachysystole: No Fetus (Single) Station: -3 Amniotic Membrane Status: intact Heart Rate Baseline: 140 Monitor Accelerations: Present Monitor Decelerations: None Card Grinder Variability: Moderate (6-25)
[2022-10-10 19:26] VITALS: BP 147/88; PULSE 88; PULSE 89; RESP 18; TEMP 36.8; O2SAT 97
[2022-10-10] MEDS: ACETAMINOPHEN 500 MG TABLET 1000 MG PO (21:54)
[2022-10-10] MEDS: OMEPRAZOLE 20 MG CAPSULE DR PO (21:54)
[2022-10-10 22:00] VITALS: PULSE 96; O2SAT 98
[2022-10-10 22:01] VITALS: BP 143/83; PULSE 88; RESP 18; TEMP 36.7
[2022-10-11] VITALS (59 sets, daily range): BP systolic 111–171; BP diastolic 59–106; PULSE 84–122; RESP 16–18; TEMP 36.6–36.9; O2SAT 95–99
[2022-10-11] MEDS: miSOPROStoL 25 MCG/0.25 TABLET VAGINAL (03:43)
[2022-10-11] MEDS: LABETALOL HCL 100 MG TABLET PO ×2 (06:43→17:05)
--- NOTE | 2022-10-11 07:44 | PM.OBPNL ---
Subjective Time Seen by Provider: 07:44 Date Seen: 10/11/22 Narrative: Into room for introductions and to assume care. Kylah sleeping comfortably in bed. She is being induced d/t CHTN. Subjective:? Kylah is coping well with labor pain/contractions. She is currently being supported by her .? Denies concerns. Questions answered to her satisfaction. ?She is considering nitrous, IV pain meds, and epidural for comfort and pain management, but is currently undecided. Discussed option to continue with cytotec or switch to pitocin since her cervix was at 3cm and soft. Pt opted for pitocin at this time. Discussed the different pain management options and the best timing for each. Pt still undecided and does not need anything at this time.?? ? Objective Exam: Objective: VSS, afebrile General Appearance:?Calm, cooperative. ?No acute distress. ? Psychiatric Exam: Alert and oriented, appropriate affect Abdomen: Gravid Ctx: ?Q 2-3 min apart. Mild FHTs: ?Baseline: 145 ? Variability: Moderate ? Accels: Present ? ?Decels: ?Absent SVE: 3cm/50%/-2 Membranes: Intact? Vital Signs: Last Vital Signs Temp 98.3 F 10/11/22 07:42 Pulse 88 10/11/22 07:43 Resp 18 10/11/22 02:21 BP 141/90 H 10/11/22 07:43 Pulse Ox 99 10/11/22 07:42 Assessment Heart Rate Baseline: 140 Plan Plan: Assessment:?? 27 at 37w 0d gestation?? Patient is coping well with challenges of labor.?? Labor type: Induced, Early labor? Category 1 FHR pattern.?? complicated by: CHTN ? Plan:?? Continue with routine intrapartum cares as ordered.? Pitocin per protocol? Patient encouraged to change positions to promote physiologic labor and .?? Candidate for analgesia of choice. Epidural and Nonpharmacologic comfort measures per patient preference. Patient does not plan for waterbirth? Monitoring: continuous per protocol IV start per protocol Anticipate progress to active labor and NVD. ?
[2022-10-11] MEDS: LACTATED RINGERS 1000 ML 1,000 ML 125 ML IV ×3 (08:01→19:55)
[2022-10-11] MEDS: OXYTOCIN 30 unit/500 ML in NS 30 UNIT/500 ML BAG IVPB (08:03)
[2022-10-11] MEDS: OMEPRAZOLE 20 MG CAPSULE DR PO (08:12)
[2022-10-11] MEDS: fentaNYL 100 MCG/2 ML inj IVP ×3 (15:32→16:32)
[2022-10-11] MEDS: ONDANSETRON 2 MG/ML inj 4 MG IV ×2 (18:24→20:19)
--- NOTE | 2022-10-11 18:55 | P.OBPN_ITS ---
Documented by User: Ramona Aquino CNM 10/11/22 19:17 Subjective Time Seen by Provider: 18:55 Date Seen: 10/11/22 Narrative: Subjective:? Kylah is coping with labor pain/contractions, but feeling very uncomfortable. She had 3 doses of IV fentanyl and was able to sleep, but she woke up feeling nauseated. Her cervix has made minimal change since RN check 4 hours ago. She is currently being supported by her Timmy. Denies concerns, but is frustrated with minimal change and the amount of discomfort. Pt would like an epidural now. Discussed option for AROM after epidural is placed and she is comfortable - pt agreeable.. Questions answered to her satisfaction. Objective Exam: Objective: VSS, afebrile General Appearance:? Calm, cooperative. ?No acute distress. ? Psychiatric Exam: Alert and oriented, appropriate affect Abdomen: Gravid Ctx: ?not tracing well, about Q 2-3 min apart. Mild FHTs: ?Baseline: 145 ? Variability: Moderate ? Accels: Present ? ?Decels: Absent? SVE: 4.5cm/50%/-2 Membranes: Intact? Pitocin @?14?? Vital Signs: Last Vital Signs Temp 98.4 F 10/11/22 15:38 Pulse 86 10/11/22 17:03 Resp 18 10/11/22 02:21 BP 144/86 H 10/11/22 17:03 Pulse Ox 96 10/11/22 15:37 Assessment Heart Rate Baseline: 140 Plan Plan: Assessment:?? 27 at 37w 0d gestation?? Patient is coping with challenges of labor, frustrated with IOL speed and the discomfort she is experiencing.?? Labor type: Induced, Early labor? Category 1 FHR pattern.?? SVE: 4.5cm, 50%, -2 complicated by: CHTN ? Plan:?? Continue with routine intrapartum cares as ordered.? Pitocin per protocol? Patient encouraged to change positions to promote physiologic labor and .?? Candidate for analgesia of choice. Epidural per patient preference. Monitoring: continuous per protocol AROM after pt is comfortable with epidural Anticipate progress to active labor and NVD. ? Documented by User: Ann Delacruz CNM 10/11/22 22:35 Subjective Narrative: Subjective:? Kylah is coping with labor pain/contractions, but feeling very uncomfortable. She had 3 doses of IV fentanyl and was able to sleep, but she woke up feeling nauseated. Her cervix has made minimal change since RN check 4 hours ago. She is currently being supported by her Timmy. Denies concerns, but is frus trated with minimal change and the amount of discomfort. Pt would like an epidural now. Discussed option for AROM after epidural is placed and she is comfortable - pt agreeable. Questions answered to her satisfaction.
[2022-10-11] MEDS: ROPIVACAINE 0.2% 100 ml 100 ML 12 MG EPIDURAL (19:31)
[2022-10-11] MEDS: ROPIVACAINE 0.2 % PF 10 ML INJ 20 MG EPIDURAL (19:31)
[2022-10-11] MEDS: LIDOCAINE 2% (PF) 5 ML VIAL EPIDURAL (19:31)
--- NOTE | 2022-10-11 19:47 | PM.ANBPRC ---
PFSH PFS Medical History (Updated 10/10/22 @ 18:59 by Kylah Xie CNM) Asthma History of endometriosis Hypertension Migraines Vaginal delivery (02/27/19) Surgical History (Updated 09/14/22 @ 14:07 by Catie Wilson MD) History of tonsillectomy Status post laparoscopy (05/10/21) [place] teeth extracted Family History (Updated 03/26/22 @ 16:51 by Susu Meléndez CNM) Paternal Grandmother Breast cancer, Onset Age: 65 Paternal Grandfather Colon cancer, Onset Age: 70 Prostate cancer Uncle Suicide Family/Other Heart disease Father High blood pressure Mother High blood pressure Sister High blood pressure Brother High blood pressure Social History (Updated 03/20/22 @ 11:04 by Rayshawn Gonzalez) Narrative: current non-drinker of alcohol non-smoker Smoking Status: Never smoker How often do you have a drink containing alcohol: never How often do you have six or more drinks on one occasion: Never AUDIT-C Alcohol total score: 0 Non-prescribed substance use: denies use Little interest or pleasure in doing things: not at all Feeling down, depressed, or hopeless: not at all Meds Home Medications and Allergies Home Medications Medication Instructions Recorded Confirmed Type vitamins no.144-folic 2 tab PO DAILY 08/27/22 10/10/22 History acid 400 mcg chewable tablet () calcium carbonate 500 mg calcium 1,000 mg PO QDAY PRN 10/04/22 10/10/22 History (1,250 mg) chewable tablet Allergies Allergy/AdvReac Type Severity Reaction Status Date / Time No Known Allergies Allergy Verified 10/04/22 09:36 Results Vital Signs Vital Signs: Last Vital Signs Temp 98.4 F 10/11/22 15:38 Pulse 106 H 10/11/22 19:47 Resp 18 10/11/22 02:21 BP 137/92 H 10/11/22 19:47 Pulse Ox 98 10/11/22 19:47 Weight: 93.984 kg Height: 149.86 cm Anesthesia Procedures Epidural Insertion Patient Location: OB Start Time: 19:00 Stop Time: 19:48 Start Date: 10/11/22 Stop Date: 10/11/22 Reason for Block: procedure for pain Patient Position: sitting Performed By: Alfa Figueroa Preanesthetic Checklist: IV checked, risks and benefits discussed, surgical consent, monitors and equipment checked, pre-op evaluation, timeout performed and anesthesia consent Prep: chlorhexidine gluconate Monitoring: blood pressure monitoring, continuous pulse oximetry and heart rate Approach: midline Vertebral Space: lumbar (1-5) Epidural Technique: LUCILA air Needle Type: Tuohy needle Injection Technique: continuous catheter Needle gauge: 17 Needle Length (cm): 10 cm Needle Insertion Depth (cm): 7 Catheter Gauge: 19 Catheter Type: multi-orifice Catheter at skin depth (cm): 13 Test Dose Result: negative and lidocaine 1.5% with epinephrine 1 to 200,000
[2022-10-11] MEDS: PHENYLEPHRINE 100 MCG/ML SYRINGE IVP ×2 (20:19→20:29)
--- NOTE | 2022-10-11 21:12 | PM.OBPNL ---
Documented by User: Ramona Aquino CNM 10/11/22 22:01 Subjective Time Seen by Provider: 21:00 Date Seen: 10/11/22 Narrative: Subjective:? Kylah is coping well with labor, comfortable in bed with epidural. She is currently being supported by her Timmy.? Denies concerns. Questions answered to her satisfaction. ?She would like to continue with the epidural for comfort and pain management.??Discussed AROM now that she is comfortable with the epidural, pt agreeable. AROM for clear fluid. Objective Exam: Objective: VSS, afebrile General Appearance:? Calm, cooperative. ?No acute distress. ? Psychiatric Exam: Alert and oriented, appropriate affect Abdomen: Gravid Ctx: ?not tracing well, about Q 2-3 min apart. Moderate FHTs: ?Baseline: 145 ? Variability: Moderate ? Accels: Present ? ?Decels: Absent? SVE: 5cm/90%/-2 Membranes: AROM for clear fluid Pitocin @?14?? Vital Signs: Last Vital Signs Temp 98.4 F 10/11/22 15:38 Pulse 113 H 10/11/22 20:55 Resp 18 10/11/22 02:21 BP 125/66 10/11/22 20:55 Pulse Ox 98 10/11/22 19:47 Assessment Heart Rate Baseline: 140 Plan Plan: Assessment:?? 27 at 37w 0d gestation?? Patient is coping with challenges of labor, comfortable with epidural Labor type: Induced, Early labor? Category 1 FHR pattern.?? SVE: 5cm, 90%, -2 complicated by: CHTN, Asthma? Plan:?? Continue with routine intrapartum cares as ordered.? Pitocin per protocol? Patient encouraged to change positions to promote physiologic labor and .?? Epidural Monitoring: continuous per protocol AROM Anticipate progress to active labor and NVD. ? Documented by User: Ann Delacruz CNM 10/11/22 22:38 Objective Exam: Objective: VSS, afebrile General Appearance:? Calm, cooperative. ?No acute distress. ? Psychiatric Exam: Alert and oriented, appropriate affect Abdomen: Gravid Ctx: ?not tracing well, about Q 2-3 min apart. Moderate FHTs: ?Baseline: 145 ? Variability: Moderate ? Accels: Present ? ?Decels: Absent? SVE: 5cm/90%/-2 Membranes: AROM for moderate amount of clear fluid Pitocin @?14??
--- NOTE | 2022-10-11 22:02 | P.OBPRC_ITS ---
Procedure Delivery date: 10/11/22 Procedure Done: Global Procedure Details: Kylah is a 27 year-old G4 now P3 admitted on 10/10/22 at 36 Weeks, 6 Days gestation for IOL r/t chronic hypertension. Cervical exam on admission was 1 cm/40 % effaced/-3 station with membranes intact in vertex presentation.?AROM?occurred at 2058 with clear fluid. Labor Analgesia:? IV Fentanyl, Epidural Pitocin:? yes? Labor onset:? 2058 Complete: 2127 Pushing:? 2127 heart tones during second stage were: Baseline 135 bpm, decels down into the 70's with pushing. Recovery with position changes. Mother pushing with good effort and moving baby down, crown noted shortly after pushing started. Called to room by RN, pt spontaneously pushing per RN. CNM at bedside shortly after. Mother pushing with good effort. Decels noted with pushing, but infant noted to be and decision made to keep pushing. Pt repositioned in attempt to help heart rate recover. delivered shortly after pushing began. At 2136 a viable female infant delivered in vertex OA presentation over an in tact perineum via spontaneous vaginal?delivery. ?Infant was placed on maternal abdomen. ?Cord was clamped and cut after a 5+ minute delay.? weight pending. ? 8 at 1 minute and 8 at 5 minutes. ?Shoulder dystocia: no. ?Nuchal cord: no. Placenta delivered spontaneously and complete at 2150 with a 3 vessel cord. Mother and infant were stable after?delivery. Lacerations:? None Blood loss: 110 mL. Blood loss measurement type: QBL? Sponge and needles counts are correct. Events: Chronic Hypertension and Labor Induction (Cytotec & Pitocin) Intrapartal Events: Labor Induction Induction method: per misoprostol protocol Delivery augmentation: rupture of membranes and pitocin Delivery monitor: external FHT and external uterine Route of delivery: Laceration description: None Estimated blood loss (mL): 110 Anesthesia type: Epidural Disposition: floor [place] Infant Gender: Female presentation: vertex Placental Delivery Description: Spontaneous Cord Description: 3 Vessels OB Vag Delivery Procedures Additional Procedures ECV: No Cook Catheter Insertion: No NST: No D&C: No Laceration Repair: No Tubal Ligation : No Other: No
[2022-10-12] MEDS: ACETAMINOPHEN 500 MG TABLET 1000 MG PO ×4 (01:09→20:28)
[2022-10-12 02:23] VITALS: BP 132/84; PULSE 100; RESP 16; TEMP 36.7; O2SAT 95
[2022-10-12] MEDS: IBUPROFEN 400 MG TABLET PO (02:40)
[2022-10-12] MEDS: LABETALOL HCL 100 MG TABLET PO ×3 (05:00→17:00)
[2022-10-12] MEDS: OMEPRAZOLE 20 MG CAPSULE DR PO (07:36)
[2022-10-12] MEDS: DOCUSATE SODIUM 100 MG CAPSULE PO (07:37)
[2022-10-12 07:39] VITALS: BP 133/89; PULSE 100; RESP 18; O2SAT 95
[2022-10-12] MEDS: IBUPROFEN 600 MG TABLET PO ×2 (08:53→15:43)
--- NOTE | 2022-10-12 11:12 | P.OBPN_ITS ---
OB - PN:Subj Subjective Time Seen by Provider: 10:40 Date Seen: 10/12/22 Interval history: S/P PPD # 1 viable female uncomplicated delivery by CNM Patient comments OB post-: no complaints, pain well controlled, tolerating diet and flatus present [place] infant status: and doing well [place] feeding status: exclusively Narrative: Patient doing well, ambulating, tolerating regular diet, voiding, no complaints or concerns today, minimal lochia, no clots, denies BRIGGS, SOB, CP, vision changes or RUQ pain OB - PN: Obj Exam Physical Exam: Vital signs: Temp Pulse Resp BP Pulse Ox O2 Del Method 98.1 F 100 18 133/89 95 10/12/22 02:23 10/12/22 07:39 10/12/22 07:39 10/12/22 07:39 10/12/22 07:39 10/12/22 07:39 Constitutional: Constitutional: no acute distress and cooperative Routine HEENT Exam: Head: Present atraumatic Routine Respiratory Exam: Respiratory: Present CTA bilaterally Routine Cardiovascular Exam: Cardiovascular: Present RRR Routine Abdominal Exam: Abdominal: Present soft Routine Exam: Patient deferred: external exam and perineal exam Routine Extremities Exam: Extremities: Present full ROM and normal inspection Routine Skin Exam: Skin: Present dry, intact and warm Routine Neurological Exam: Neurological: Present alert and oriented X3 Routine Psychiatric Exam: Psychiatric: Present normal affect, cooperative and good judgment OB - PN: A/P Vaginal Delivery Assessment and Plan (1) Chronic hypertension affecting : Status: Acute (2) Vaginal delivery: Status: Acute (3) Single live : Status: Acute Plan day: 1 Plan: routine care Comments: anticipate D/C home tomorrow, patient delivered late in pm and would like to stay until tomorrow
[2022-10-12 12:02] VITALS: BP 122/81; PULSE 87; RESP 18; TEMP 36.6; O2SAT 96
[2022-10-12 15:45] VITALS: BP 133/89; PULSE 89; RESP 18; TEMP 36.7; O2SAT 95
[2022-10-12 20:40] VITALS: BP 134/88; PULSE 106; RESP 14; TEMP 36.7; O2SAT 97
[2022-10-13] MEDS: IBUPROFEN 600 MG TABLET PO ×2 (00:43→07:00)
[2022-10-13 00:48] VITALS: BP 131/80; PULSE 106; RESP 16; TEMP 36.6; O2SAT 95
[2022-10-13] MEDS: LABETALOL HCL 100 MG TABLET PO (05:00)
[2022-10-13 07:20] VITALS: BP 151/96; PULSE 99; RESP 16; TEMP 36.6; O2SAT 97
[2022-10-13] MEDS: OMEPRAZOLE 20 MG CAPSULE DR PO (07:40)
[2022-10-13] MEDS: DOCUSATE SODIUM 100 MG CAPSULE PO (07:40)
[2022-10-13 07:41] LABS: Hemoglobin* 9.5 gm/dL (12.0-16.0)
[2022-10-13] MEDS: MEASLES,MUMPS,RUBELLA VACC/PF 1 DOSE INJ 1 EACH SUBCUT (10:52)
--- NOTE | 2022-10-13 10:53 | PM.OBPNVD1 ---
OB - PN:Subj Subjective Date Seen: 10/13/22 Interval history: S/P PPD # 2 viable female uncomplicated delivery by CNM OB - PN: Obj Exam Physical Exam: Vital signs: Temp Pulse Resp BP Pulse Ox O2 Del Method 97.8 F 99 16 151/96 H 97 10/13/22 07:20 10/13/22 07:20 10/13/22 07:20 10/13/22 07:20 10/13/22 07:20 10/13/22 07:20 Constitutional: Constitutional: no acute distress and cooperative Routine HEENT Exam: Head: Present atraumatic and normocephalic Routine Respiratory Exam: Respiratory: Present CTA bilaterally Routine Cardiovascular Exam: Cardiovascular: Present RRR Routine Abdominal Exam: Abdominal: Present soft Fundus: Present firm Routine Exam: Patient deferred: external exam and perineal exam Routine Extremities Exam: Extremities: Present full ROM, normal inspection and pulses intact Routine Skin Exam: Skin: Present dry, normal color and warm Routine Neurological Exam: Neurological: Present alert and oriented X3 OB - PN: Obj Data Labs Labs: Laboratory Results - last 24 hr 10/13/22 07:28 Hgb 9.5 L OB - PN: A/P Vaginal Delivery Assessment and Plan (1) Chronic hypertension affecting : Status: Acute Assessment and Plan: follow up in office for BP check next week (2) Vaginal delivery: Status: Acute Assessment and Plan: follow up 6 weeks routine visit (3) Single live : Status: Acute Plan day: 2 Plan: routine care and discharge home
--- NOTE | 2022-10-13 10:56 | P.DS_ITS ---
DS: Providers Provider Time Seen by Provider: 09:30 Date Seen: 10/13/22 Date of admission: 10/10/22 16:12 Primary care physician: Horacio Santana MD Admitting Clinician: Kylah Xie CNM Attending Physician on discharge: Susu Borjas Do Date of Discharge: 10/13/22 Exam Const: Vital Signs, click to edit/add: Vital Signs - 24 hr 10/12/22 12:02 10/12/22 15:45 10/12/22 20:40 Temperature 97.8 F 98.1 F 98.1 F Pulse Rate [Right Pulse Oximeter] 87 89 106 H Respiratory Rate 18 18 14 Blood Pressure [Le ft Arm] 122/81 133/89 134/88 Pulse Oximetry 96 95 97 Oxygen Delivery Me thod Room Air Room Air Room Air 10/13/22 00:48 10/13/22 07:20 Temperature 97.8 F 97.8 F Pulse Rate [Right Pulse Oximeter] 106 H 99 Respiratory Rate 16 16 Blood Pressure [Le ft Arm] 131/80 151/96 H Pulse Oximetry 95 97 Oxygen Delivery Me thod Room Air Room Air Common normals: oriented x3 HENMT: Common normals: normocephalic and head/scalp atraumatic Head and sc alp: normocephalic and atraumatic Resp: Common normals: normal respiratory effort, no retractions and clear to auscultation bilaterally Auscultation: clear to auscultation bilaterally Cardio: Common normals: regular rate and regular rhythm Rate: regular rate Rhythm: regular rhythm GI: Common normals: soft to palpation and non-tender Palpation: soft : Uterus: U/1 and firm Lochia: small Extremity: Common normals: normal to inspection and full ROM Neuro: Common normals: oriented x3, moves all extremities and no focal motor d eficits OB - DS: Summary Hospital Course Hospital Course: The patient is a 27 year old G 4 P 3 at 37 weeks gestation that was admitted to the Center on 10/10/22 for chronic hypertension effecting in third trimester. She had an uncomplicated vaginal delivery. She delivered a viable female infant. She is breast feeding. the patient has done well with stable BP on Labetalol 100 mg BID. Peripartum Data delivery method: Vaginal Laceration description: None Episiotomy description: None complications: none [place] Gender: Female Infant Discharge Plan: Home Status at Discharge Functional status at discharge: independent ambulation Overall status at discharge: patient is back to baseline Time Spent with Patient Time attestation: Total time spent providing and/or coordinating discharge services: Time spent: Less than 30 minutes Specific discharge activities: see discharge instructions Discharge Plan Discharge Disposition: Home, Self-Care Date of Admission: 10/10/22 16:12 Attending Provider on Discharge: Susu Borjas Primary Care Provider: Horacio Santana Condition: Stable Anticipated Discharge Date/Time: 10/13/22 10:49 Discharge Medications: New ibuprofen 600 mg Tablet 600 mg PO Q6H PRN5 Days Qty: 30 0RF Continued calcium carbonate 500 mg calcium (1,250 mg) tablet,chewable 1,000 mg PO QDAY PRN albuterol sulfate [Proventil HFA] 90 mcg/actuation HFA aerosol inhaler 2 puff inhalation Q4-6H PRN (Reason: shortness of breath or wheezing) Qty: 8.5 1RF ipratropium-albuterol 0.5 mg-3 mg(2.5 mg base)/3 mL solution for nebulization 3 ml inhalation Q6-8H PRN (Reason: wheezing) Qty: 90 2RF 400 mcg tablet,chewable 2 tab PO DAILY labetalol 100 mg tablet 100 mg PO BID Qty: 30 2RF sertraline 100 mg tablet See Rx Instructions .ROUTE .COMPLEX Qty: 90 0RF Dose Instruction: TAKE 1 TABLET BY MOUTH EVERY DAY Rx Instructions: TAKE 1 TABLET BY MOUTH EVERY DAY Discontinued omeprazole 20 mg capsule,delayed release(DR/EC) 20 mg PO QDAY Qty: 30 2RF Discharge Orders: Discharge Order (Routine); Ordered 10/13/22 Ordered By: Susu Borjas Patient Education: OB High Blood Pressure DC, OB Over the Counter Medication Information, OB Vaginal/Breast Feeding Additional Instructions: Call office on Saturday for follow up blood pressure in office in 72-96 hours from discharge home. Activity Level: No strenuous activity, Light activity and No Weight Bearing Activity Detail: no lifting > 15-20 lbs, no tub bathing, no tampon use, no vaginal penetrative intercourse for 6 weeks Discharge Diet: Regular Follow Up Appointments: Kylah Xei CNM [Certified Nurse Commodity Analyst] - (Blood pressure check in 3-4 days from discharge home) Forms: [employer] Info Instructions
== END 2022-10-13 11:40 | disposition home or self-care (01) | DRG 560 ==
PROVIDERS: Advanced Practice Midwife; Obstetrics & Gynecology; Admitting Provider Advanced Practice Midwife; PCP Family Medicine; Visit Provider Advanced Practice Midwife
DX: O10.92 Unspecified pre-existing hypertension complicating childbirth (principal); Z3A.37 37 weeks gestation of pregnancy; Z37.0 Single live birth; K21.9 Gastro-esophageal reflux disease without esophagitis; F41.8 Other specified anxiety disorders; O99.344 Other mental disorders complicating childbirth
CPT/HCPCS: 01967; 36415; 59200; 85018; 85025; 86850; 86900; 86901; 87635; 88307; A9270; J2370; J2405; J2795; J3010; J7120

== ENCOUNTER 2022-10-13 22:01 | Emergency (ER) | payer BC, SELFPAY ==
[2022-10-13] VITALS (12 sets, daily range): BP systolic 123–147; BP diastolic 93–108; PULSE 109–117; RESP 16; TEMP 36.7; O2SAT 97–98; BMI 20.8
--- NOTE | 2022-10-13 22:46 | ED_ITS ---
HPI - General Adult General Chief complaint: High Blood Pressure Stated complaint: high BP, was just discharged from center Time Seen by Provider: 10/13/22 22:16 Source: patient Mode of arrival: ambulatory Limitations: no limitations History of Present Illness HPI narrative: Patient is a 27-year-old female day 2. Status post vaginal delivery of a baby girl that was induced secondary to chronic hypertension. Patient was discharged home about 10 hours ago. She states that since she has been home she has had 2 blood pressure readings that were 160 systolic about 3 hours apart in so she returns for re-evaluation. She has no other concerns. States that she is feeling fine. Denies any neurologic deficits. Denies any headache, chest pain. She is puffy but states that this has not gotten worse. Related Data Home Medications Medication Instructions Recorded Confirmed vitamins no.144-folic 2 tab PO DAILY 08/27/22 10/10/22 acid 400 mcg chewable tablet () calcium carbonate 500 mg calcium 1,000 mg PO QDAY PRN 10/04/22 10/10/22 (1,250 mg) chewable tablet Previous Rx's Medication Instructions Recorded labetalol 100 mg tablet 100 mg PO BID #30 tabs 06/12/22 sertraline 100 mg tablet See Rx Instructions .Route 09/14/22 .COMPLEX #90 tabs albuterol sulfate 90 mcg/actuation 2 puff inhalation Q4-6H PRN 09/27/22 aerosol inhaler (Proventil HFA) shortness of breath or wheezing #8.5 grams ipratropium 0.5 mg-albuterol 3 mg 3 ml inhalation Q6-8H PRN wheezing 09/27/22 (2.5 mg base)/3 mL nebulization #90 mL soln ibuprofen 600 mg tablet 600 mg PO Q6H PRN 5 days #30 tabs 10/13/22 Allergies Allergy/AdvReac Type Severity Reaction Status Date / Time No Known Allergies Allergy Verified 10/04/22 09:36 Review of Systems Status of ROS: Reports: 10 or more systems reviewed and unremarkable except as noted in History and below [facility] Medical History Asthma History of endometriosis Hypertension Migraines Surgical History History of tonsillectomy Status post laparoscopy (05/10/21) [place] teeth extracted Family History Paternal Grandmother Breast cancer, Onset Age: 65 Paternal Grandfather Colon cancer, Onset Age: 70 Prostate cancer Uncle Suicide Family/Other Heart disease Father High blood pressure Mother High blood pressure Sister High blood pressure Brother High blood pressure Social History Narrative: current non-drinker of alcohol non-smoker Smoking Status: Never smoker How often do you have a drink containing alcohol: never How often do you have six or more drinks on one occasion: Never AUDIT-C Alcohol total score: 0 Non-prescribed substance use: denies use Little interest or pleasure in doing things: not at all Feeling down, depressed, or hopeless: not at all Exam Narrative: Exam Narrative: Upon arrival patient's blood pressure is 139/96. Well-nourished well-developed patient in no acute distress. Alert and oriented. Answers questions appropriately. Mood and affect are appropriate. Thoughts are goal oriented and rational. No tangential or magical thinking noted. Patient speaks in full sentences without needing to catch their breath. HEENT: Normocephalic atraumatic. Pupils are equally round reactive to light. Extraocular muscles are intact. Conjunctivae are moist without any icterus noted. Moist mucous membranes. Cardiovascular: Heart is regular rate and rhythm S1 and S2 are present without any murmurs. Lungs: Clear to auscultation bilaterally no wheezes rhonchi or rales are appreciated. Patient takes deep breaths without any discomfort. Abdomen: Soft and protuberant, as expected. Normal bowel sounds. Extremities: Bilateral lower extremities are without pitting edema. Skin: Well perfused without any obvious rashes. Const: Vital Signs, click to edit/add: Vital Signs - 24 hr 10/13/22 22:25 10/13/22 22:24 10/13/22 22:25 Temperature 98.1 F Pulse Rate 112 H 109 H Pulse Rate [Right Pulse Oximeter] 111 H Respiratory Rate 16 Blood Pressure 139/96 H Blood Pressure [Ri ght Upper Arm] 139/96 H Pulse Oximetry 98 98 97 Oxygen Delivery Me thod Room Air 10/13/22 22:30 10/13/22 22:31 10/13/22 22:48 Temperature Pulse Rate 111 H 116 H 111 H Pulse Rate [Right Pulse Oximeter] Respiratory Rate Blood Pressure 144/102 H Blood Pressure [Ri ght Upper Arm] Pulse Oximetry 97 98 98 Oxygen Delivery Me thod 10/13/22 23:00 10/13/22 23:01 10/13/22 23:15 Temperature Pulse Rate 109 H 111 H 117 H Pulse Rate [Right Pulse Oximeter] Respiratory Rate Blood Pressure 142/93 H Blood Pressure [Ri ght Upper Arm] Pulse Oximetry 97 98 98 Oxygen Delivery Me thod 10/13/22 23:17 10/13/22 23:30 10/13/22 23:31 Temperature Pulse Rate 112 H 113 H 116 H Pulse Rate [Right Pulse Oximeter] Respiratory Rate Blood Pressure 123/98 H 138/108 H Blood Pressure [Ri ght Upper Arm] Pulse Oximetry 97 97 97 Oxygen Delivery Me thod Course Course Hospital Course: Lab work was unremarkable. Blood pressures remained stable in the 130s systolic over 90s to low 100s (less than 110) diastolic. I did speak to Dr. Borjas earlier who stated that as long as her blood pressures less than 160/110 that she should be stable to go home. Patient remained asymptomatic while she was here. Vital Signs Vital signs: Initial Vital Signs Pulse Rate 112 H 10/13/22 22:24 Pulse Oximetry 98 10/13/22 22:24 Vital Signs Pulse Rate 112 H 10/13/22 22:24 Pulse Oximetry 98 10/13/22 22:24 Temperature 98.1 F 10/13/22 22:25 Pulse Rate 116 H 10/13/22 23:31 Respiratory Rate 16 10/13/22 22:25 Blood Pressure 138/108 H 10/13/22 23:31 Pulse Oximetry 97 10/13/22 23:31 Oxygen Delivery Method 10/13/22 22:25 Medical Decision Making MDM Narrative Medical decision making narrative: 27-year-old female with chronic hypertension, day 2. Blood pressures are within acceptable range. She does have a follow-up appointment in 2 days. She certainly is should continue to monitor blood pressures at home and return with any concerns. Medical Records Medical records reviewed: Yes I reviewed the patient's medical records Lab Data Lab results reviewed: Yes I reviewed the patient's lab results Labs: Lab Results 10/13/22 10/13/22 10/13/22 Range/Units 22:39 22:55 22:55 WBC 8.06 (4.50-11.00) K/uL RBC 3.58 L (4.00-5.20) m/uL Hgb 9.5 L (12.0-16.0) gm/dL Hct 30.4 L (33.0-51.0) % MCV 85 (80-100) fL MCH 27 (26-34) pg MCHC 31 L (32-36) gm/dL RDW Coeff of Enmanuel 13.0 (11.5-15.5) % Plt Count 198 (140-440) K/uL Neut % (Auto) 64.6 (42.0-72.0) % Lymph % (Auto) 23.1 (20-44) % Hettinger % (Auto) 7.3 (0.0-11.0) % Eos % (Auto) 2.9 (0.0-7.0) % Baso % (Auto) 0.1 (0.0-3.0) % Neut # (Auto) 5.21 (1.7-7.0) K/uL Lymph # (Auto) 1.86 (0.90-2.90) K/uL Hettinger # (Auto) 0.60 (0.00-0.90) K/UL Eos # (Auto) 0.23 (0.00-0.50) K/uL Baso # (Auto) 0.01 (0.00-0.30) K/uL Sodium 138 (135-149) mmol/L Potassium 4.2 (3.6-5.1) mmol/L Chloride 111 (96-114) mmol/L Carbon Dioxide 23 (20-32) mmol/L BUN 12 (5-24) mg/dL Creatinine 0.6 (0.5-1.5) mg/dL Estimated Creat Clear 103.88 Estimated GFR 126 ml/min Glucose 86 (60-115) mg/dL Calcium 8.5 (8.4-10.6) mg/dL Total Bilirubin 0.3 (0.1-1.5) mg/dL Direct Bilirubin 0.2 (0.0-0.5) mg/dL AST 22 (12-35) U/L ALT 17 (4-35) U/L Alkaline Phosphatase 74 (40-150) U/L Total Protein 5.8 L (6.0-8.3) g/dL Albumin 3.2 L (3.3-5.0) g/dL Urine Color Red A (Yellow) Urine Appearance Cloudy A (Clear) Urine pH 7.0 (5.0-8.5) Ur Specific [place] >= 1.030 (1.000-1.030) Urine Protein 1+ A (Negative) Urine Glucose (UA) Negative (Negative) Urine Ketones Negative (Negative) Urine Blood 3+ A (Negative) Urine Nitrite Negative (Negative) Urine Bilirubin Negative (Negative) Urine Urobilinogen 0.2 (0.2-1.0) Ur Leukocyte Esterase 1+ A (Negative) Urine RBC 2-5 A (0-2) Urine WBC 25-50 A (0-5) Ur Squamous Epith Cells Few (None-Few) Urine Bacteria None (None) Discharge Plan Discharge Clinical Impression: Hypertension Patient Disposition: Home, Self-Care Condition: Stable Additional Instructions: Follow-up as scheduled. Return to the ER for any concerning symptoms were elevated blood pressures above 160/110. Prescriptions: No Action calcium carbonate 500 mg calcium (1,250 mg) tablet,chewable 1,000 mg PO QDAY PRN albuterol sulfate [Proventil HFA] 90 mcg/actuation HFA aerosol inhaler 2 puff inhalation Q4-6H PRN (Reason: shortness of breath or wheezing) Qty: 8.5 1RF ipratropium-albuterol 0.5 mg-3 mg(2.5 mg base)/3 mL solution for nebulization 3 ml inhalation Q6-8H PRN (Reason: wheezing) Qty: 90 2RF 400 mcg tablet,chewable 2 tab PO DAILY ibuprofen 600 mg Tablet 600 mg PO Q6H PRN5 Days Qty: 30 0RF labetalol 100 mg tablet 100 mg PO BID Qty: 30 2RF sertraline 100 mg tablet See Rx Instructions .ROUTE .COMPLEX Qty: 90 0RF Dose Instruction: TAKE 1 TABLET BY MOUTH EVERY DAY Rx Instructions: TAKE 1 TABLET BY MOUTH EVERY DAY Follow Up/Referrals: Horacio Santana MD [Primary Care Provider] - Stand Alone Forms: [facility] Info Instructions
[2022-10-13 23:04] LABS: Basophils Absolute Auto 0.01 K/uL (0.00-0.30); Basophils Percent Auto 0.1 % (0.0-3.0); Eosinophils Absolute Auto 0.23 K/uL (0.00-0.50); Eosinophils Percent Auto 2.9 % (0.0-7.0); Hematocrit 30.4 % (33.0-51.0); Hemoglobin* 9.5 gm/dL (12.0-16.0); Immature Granulocytes Abs Auto 0.16 K/uL (0.00-0.30); Lymphocytes Absolute Auto 1.86 K/uL (0.90-2.90); Lymphocytes Percent Auto 23.1 % (20-44); Mean Corpuscular HGB Conc 31 gm/dL (32-36); Mean Corpuscular Hemoglobin 27 pg (26-34); Mean Corpuscular Volume 85 fL (80-100); Monocytes Percent Auto 7.3 % (0.0-11.0); Neutrophils Absolute Auto 5.21 K/uL (1.7-7.0); Neutrophils Percent Auto 64.6 % (42.0-72.0); Platelet Count* 198 K/uL (140-440); Red Blood Count 3.58 m/uL (4.00-5.20); White Blood Count* 8.06 K/uL (4.50-11.00)
[2022-10-13 23:16] LABS: Slide Review Reflex No
[2022-10-13 23:20] LABS: Appearance Urine Cloudy (Clear); Bilirubin Urine Negative (Negative); Blood Urine 3+ (Negative); Color Urine Red (Yellow); Glucose Urine Negative (Negative); Ketones Urine Negative (Negative); Leukocyte Esterase Urine 1+ (Negative); Nitrite Urine Negative (Negative); Protein Urine 1+ (Negative); Specific Gravity Urine >= 1.030 (1.000-1.030); Urobilinogen Urine 0.2 (0.2-1.0)
[2022-10-13 23:21] LABS: Albumin* 3.2 g/dL (3.3-5.0); Chloride* 111 mmol/L (96-114); Potassium* 4.2 mmol/L (3.6-5.1); Sodium* 138 mmol/L (135-149)
[2022-10-13 23:24] LABS: Alanine Aminotransferase* 17 U/L (4-35); Alkaline Phosphatase* 74 U/L (40-150); Aspartate Amino Transferase* 22 U/L (12-35); Bilirubin Direct* 0.2 mg/dL (0.0-0.5); Bilirubin Total* 0.3 mg/dL (0.1-1.5); Blood Urea Nitrogen* 12 mg/dL (5-24); Calcium* 8.5 mg/dL (8.4-10.6); Carbon Dioxide* 23 mmol/L (20-32); Creatinine* 0.6 mg/dL (0.5-1.5); Est. Creatinine Clearance* 103.88; Estimated Glomerular Filt Rate 126 ml/min; Glucose* 86 mg/dL (60-115); Total Protein* 5.8 g/dL (6.0-8.3)
[2022-10-13 23:24] LABS: Squamous Epithelial Cell Urine Few (None-Few); WBC Urine 25-50 (0-5)
[2022-10-14 00:01] VITALS: BP 139/96; PULSE 111; RESP 16; TEMP 36.7
== END 2022-10-14 00:01 | disposition home or self-care (01) ==
PROVIDERS: Emergency Provider Family Medicine; PCP Family Medicine
DX: I10 Essential (primary) hypertension (principal)
CPT/HCPCS: 36415; 80048; 80076; 81001; 85025; 87086; 99283; 99284

== ENCOUNTER 2022-10-22 13:50 | Outpatient (CLI) | payer BC, SELFPAY | END 2022-10-22 13:51 | disposition home or self-care (01) | LOC: LAB 13:51 | PROVIDERS: PCP Family Medicine; Visit Provider Obstetrics & Gynecology | DX: R10.2 Pelvic and perineal pain (principal) | CPT/HCPCS: 87086 ==

== ENCOUNTER 2022-11-02 10:13 | Outpatient (CLI) | payer BC, SELFPAY ==
--- NOTE | 2022-11-02 17:00 | P.LACCB_ITS ---
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 Alas Jaundice: No Reason for Consult Reason for Consult: painful latch on the left Past Experience Past Experience: Yes (nursed her middle child for ~ 4 months (nee ded to supplement w/ formula)) Current Frequency of Day Feedings: every 2 hours Frequency of Night Feedings: about every four hours Both Breasts: Yes Suck: strong Latch: fairly wide Length of Time: 10 - 20 min/5 - 10 min Goals: as long as possible Pumping Pumping: No Supplementing EMB Supplement: No Formula Supplement: No Baby Elimination Number of Wet Diapers a Day: almost every feeding Number of BM a Day: every feeding; yellow and seedy Breast/Nipple Condition Breast Information: WNL Maternal Nipple Condition - Left: Common Nipple Maternal Nipple Condition - Right: Common Nipple Sore Nipples: Yes (left) Onsite Pre-Feed weight: 2.964 kg Post-Feed weight: 3.06 kg Milk Transferred (mL): 96 Pre-Nursing Left Nipple: Within Normal Limits Pre-Nursing Right Nipple: Within Normal Limits Post-Nursing Left Nipple: Within Normal Limits Post-Nursing Right Nipple: Within Normal Limits Assessments/Interventions Assessments/Interventions: Met with mom and this now 3 week old ex- 37 week AGA baby for consult.? Mom reports she's exclusively and it's going well on the right side but she still has pain on the left side.? Baby is nursing every 2 - 4 hours and will usually take both sides, feedings last 15 - 30 minutes.? Mom hasn't started pumping or introduced a bottle; has a new Zoomie pump. Breasts are WNL- symmetrical with rounded lower quadrants; intramammary distance is < 1.5 inches.? Nipples are everted and don't flatten or retract on compression; no damage noted.? Right is a little shorter than the left. Baby has gained 35 grams/day since her last visit on 10/29.? Per mom she didn't have a caput/cephalohematoma at delivery.? Mom also states baby has equal ROM when turning her head and moving her extremities.? Baby's upper frenulum is tight and when her upper lip is flanged her gums nandini.? Her palate is a little high, but she has a pretty strong suck on a finger.? Her tongue extends past the gum line, but has some canoeing when following a finger from side to side.? Her lower frenulum was visualized but may be a little posterior. Mom latched baby to the left side in the cradle hold and it was somewhat shallow, mom wasn't comfortable.? When she was verbally coached to support her breast in the C hold and exaggerate pointing her nipple to baby's nose she reported increased comfort (latch was wider, lips were flanged).? Mom has a strong let-down but baby was able to handle it and nursed for about 15 minutes before slipping down to the nipple.? Mom was shown how to unlatch her and once she was burped, offered the other side.? After a few attempts with the techniques listed baby got a deep latch and mom was comfortable.? Some clicking was heard on this side, but it resolved as mom's flow slowed down.? Baby nursed about 10 minutes before falling asleep.? She transferred 96 ml. Mom's pump was reviewed, nipples were measured, suggested she try a smaller flange size. Plan: 1. Continue to nurse baby ALD, offering both sides and trying the ideas above to get a more comfortable latch. 2. Suggested mom start pumping next week 1 - 2 times/day.? Flange fit guide given. 3. Suggested dad introduce a bottle in the next 1 - 2 weeks every day or every few days.? Reviewed paced feeding and handout given. 4. Will f/u with PCP for a 2 month WCC and in prn. 5. Encouraged Baby Talk. Meds Home Medications and Allergies Home Medications Medication Instructions Recorded Confirmed Type vitamins no.144-folic 2 tab PO DAILY 08/27/22 10/22/22 History acid 400 mcg chewable tablet () calcium carbonate 500 mg calcium 1,000 mg PO QDAY PRN 10/04/22 10/22/22 History (1,250 mg) chewable tablet Allergies Allergy/AdvReac Type Severity Reaction Status Date / Time No Known Allergies Allergy Verified 10/22/22 12:59
== END 2022-11-02 10:14 | disposition home or self-care (01) ==
LOC: OB LAC 10:13
PROVIDERS: PCP Family Medicine; Visit Provider Obstetrics & Gynecology
DX: Z39.1 Encounter for care and examination of lactating mother (principal)
CPT/HCPCS: 99211

== ENCOUNTER 2022-11-21 08:58 | Outpatient (CLI) | payer BC, SELFPAY ==
--- NOTE | 2022-11-21 09:15 | CRLHL7_ITS ---
For Patients: As a result of the Century Cures Act, medical imaging exams and procedure reports are released immediately into your electronic medical record. You may view this report before your referring provider. If you have questions, please contact your health care provider. INDICATION: Left ovarian cyst TECHNIQUE: Ultrasound pelvis transabdominal only COMPARISON: None FINDINGS: Uterus: 9.3 centimeter x 6.6 centimeter x 7.3 centimeter normal echotexture of the myometrium. No masses. Endometrium: The endometrium measures 6 millimeters in thickness. No sign of endometrial mass or fluid. Right ovary: 3.7 centimeter x 2.3 centimeter x 2.8 centimeter. No ovarian or adnexal masses. Normal arterial and venous blood flow. Left ovary: 3.9 centimeter x 2.1 centimeter x 3.0 centimeter. No ovarian or adnexal masses. Normal arterial and venous blood flow. Cul-de-sac: No significant free fluid. IMPRESSION: Unremarkable pelvic ultrasound. Specifically, no evidence for left ovarian cyst. Dictated by Horacio Williamson MD @ 11/21/2022 9:58:45 AM (Electronically Signed)
== END 2022-11-21 08:59 | disposition home or self-care (01) ==
LOC: US 08:59
PROVIDERS: PCP Family Medicine; Visit Provider Obstetrics & Gynecology
DX: N83.202 Unspecified ovarian cyst, left side (principal)
CPT/HCPCS: 76856

== ENCOUNTER 2024-01-08 08:51 | Outpatient (CLI) | payer OTHER, SELFPAY ==
--- OUTSIDE RECORDS SUMMARY | 2024-01-08 08:55 | XMS_ITS | Clinical Summary ---
Author Name Unknown Organization [email or web address] Address [place], [place] [address] Care Team Providers Care Mac Operator Name Role Phone Pcp, No Primary Care Provider Unavailabl e Allergies No known active allergies Medications Medication Sig Dispensed Refills Start Date End Date Status acetaminophen (TYLENOL EXTRA STRGTH) 500 mg tablet Take 1,000 mg by mouth. 12/23/2018 Active ibuprofen (ADVIL; MOTRIN) 600 mg tabletIndications:Va ginal delivery Take 1 tablet by mouth every 6 hours. Maximum of 3200 mg in 24 hours. 30 tablet 1 03/01/2019 Active Breast Pump - PurchaseIndications: Vaginal delivery For home use. Gestation age at delivery: 39 weeks. Reason for need: . Length of need: 99 months 1 Device 03/01/2019 Active oxyCODONE (ROXICODONE) 5 mg immediate release tabletIndications:Lo wer abdominal pain Take 1 Tablet (5 mg) by mouth every 4 hours if needed for Pain. 10 Tablet 03/26/2021 Active Active Problems Problem Noted Date Diagnosed Date Vaginal delivery 02/27/2019 Essential hypertension compl icating or reason for care during 12/31/2018 care 09/03/2018 Overview: . SVDx1. FATMATA 03/12/19 by LMP/FTU FOB: Timmy H/o gestational hypertension A positive Rubella equivocal Normal Ob50 (76), Hg 12.3 Normal anatomy 10/29/18 Encounter for supervision of normal Overview: . SVDx1. FATMATA 03/12/19 by LMP/FTU FOB: Timmy H/o gestational hypertension A positive Rubella equivocal Normal Ob50 (76), Hg 12.3 Normal anatomy 10/29/18 GBS negative CHTN/GHTN Unspecified asthma(493.90) Resolved Problems Problem Noted Date Diagnosed Date Resolved Date Other acne 04/17/2011 12/09/2018 Dysmenorrhea 04/17/2011 12/09/2018 Recurrent cold sores 04/17/2011 019 Adjustment disorder with depressed mood 04/17/2011 12/09/2018 ADHD (attention deficit hype ractivity disorder) 08/11/2010 12/09/2018 Overview: Diagnosed in 5th grade Generalized headaches 08/11/20102018 Allergic rhinitis, cause unspecified 12/09/2018 Immunizations Name Administration Dates Next Due DTP-HIB 08/07/1996, 6,1995,03/02 DTaP 11/16/1999, 6,04/14/1996,05/04,1995 HIB-HepB (Comvax) 08/07/1996, 6,1995,03/02 Hepatitis B (Peds) 05/02/2010, 6,1995,02/01 Hepatitis B, Unspecified 1995 Human Papilloma Virus Vaccine 09/01/2007, 007,02/20/2007 08/29/2007 Inactivated Polio Vaccine 11/16/1999,,1995,03/02 Influenza A (H1N1), Inactiva anderson (Age >=3 Years) 07/21/2009 Influenza Virus, Unspecified 06/30/2014, 06/16/2012,07/14/2010,07/04,07/05/2008,07/18/2006,07/27/20 05 Influenza, High-dose Inactivated 09/03/2018,05/04 Influenza, IIV3 (Age 6-35 mos) 06/30/2014,2011 Influenza, IIV3 (Age >=3 years) 07/14/20,07/26/2009,07/05/2008,07/03,07/27/2005 Influenza, IIV4 05/24/2016 MMR 04/14/1996 MMRV 11/16/1999 Meningococcal Vaccine (Menactra) 02/20/2007 Meningococcal Vaccine (Menveo) 08/19/2013 Polio Virus, Unspecified 11/16/1999,04/02,1995,03/02 Td (Age >=7 Years) 02/13/2018 Tdap 12/31/2018,02/20/2007 Varicella Vaccine 04/29/2007,11/16/1999 Family History Medical History Relation Name Comments Good Health Brother Good Health Father Psychiatric illness Father adhd Hypertension Maternal Grandmother Hypertension Mother Other Mother migraines when she was younger Good Health Sister Psychiatric illness Sister adhd No Known Problems Son Heart Disease No Family History Relation Name Status Comments Brother Father Maternal Grandmother Mother Sister Son Alive Social History Tobacco Use Types Packs/Day Years Used Date Smoking Tobacco: Never Smokeless Tobacco: Never Tobacco Cessation:Counseling Given: No Comments:No exposure. Alcohol Use Standard Drinks/Week Comments No 0 (1 standard drink = 0.6 oz pur e alcohol) Sex and Gender Information Value Date Recorded Sex Assigned at Not on file Gender Identity Not on file Sexual Orientation Not on file Obstetrics History Para Term AB IAB SAB Ectopic Multiple Livin g Live Births 3 2 2 1 1 2 2 Date Outcome GA Total Labor Labor/2nd/3rd Weight Sex Delivery Anes PTL Beena A1 A5 Name Cl in 03/25 Term 38w 0d 3.06 kg (6 lb 12 oz) M Epidu ral N Essence ng 05/22 18 SAB 02/27 Term 38w 1d 0h 10m 3.11 kg (6 lb 13.7 oz) M Vag IV Meds, Epidu ral Essence ng 8 9 KOKTA VY,BB QUE ANY Delivery Location:[facility]) Last Filed Vital Signs Vital Sign Reading Time Taken Comments Blood Pressure 119/80 03/26/2021 11:12 AM CDT Pulse 82 03/26/2021 11:26 AM CDT Temperature 36.7 ??C (98.1 ??F) 03/26/2021 7:06 AM CD T Respiratory Rate 18 03/26/2021 7:06 AM CDT Oxygen Saturation 96% 03/26/2021 11:26 AM CDT Inhaled Oxygen Concentration - - Weight 91.4 kg (201 lb 6.4 oz) 03/26/2021 7:06 A M CDT Height 149.9 cm (4' 11) 03/26/2021 7:06 AM CDT Body Mass Index 40.68 03/26/2021 7:06 AM CDT Plan of Treatment Health Maintenance Due Date Last Done Comments Depression screening for age 12+ 2007 BMI (ht and wt on same day) for age 18+ 2013 COVID-19 vaccine series (2022- season) 2023 Pap test for age 21-65 04/17/2024 04/17/2021 Influenza for age 9-49 05/03/2024 6, 06/30/2014, 06/16/2012, Additional history exists Tetanus booster 12/31/2028 12/31/2018, 01/31, 02/20/2007 HIV for age 15-65 Completed 08/15/2012 Hepatitis C screening for age 18-79 Completed 08/15/2012 Tdap Completed 12/31/2018, 02/20/2007 Pneumococcal series for age 6-64 Aged Out No longer eligible based on patient's age to complete this topic Procedures Procedure Name Priority Date/Time Associated Diagnosis Comments BASKET HAND BRAIDER THIN PREP PAP SCREEN IMAGED Routine 04/17/2021 12:00 PM CDT ANTI HIV 1/2 Routine 08/15/2012 4:34 PM CARGO HANDLER Supervision of normal first ANTI HCV Routine 08/15/2012 4:34 PM CARGO HANDLER Supervision of normal first from Last 3 Months or Most Recently Relevant to Health Maintenance Results * BASKET HAND BRAIDER THIN PREP PAP SCREEN IMAGED (04/17/2021 12:00 PM CDT) Case Report Gynecologic Cytology Report ? Case: [id number] ? Authorizing Provider: ??Catie Wilson MD ?? Collected: ? 04/17/2021 1200 ? Ordering Location: ? [facility] ?Received: ?04/19/2021 0818 ? First Screen: ?Arlene Reinoso ? Specimen: ?BASKET HAND BRAIDER ThinPrep Vial Screening, Cervical/Vaginal ? 05/02/2021 11:27 AM [facility] ENTRAL LABORATORY INTERPRETATION/ RESULT NEGATIVE FOR INTRAEPITHELIAL LESION OR MALIGNANCY (NIL) (none) 05/02/2021 11:27 AM [facility] IMEN ADEQUACY Satisfactory for evaluation No endocervical component seen 05/02/2021 11:27 AM [facility] HPV REQUEST HPV if ASCUS 05/02/2021 11:27 AM [facility] Additional Information 05/02/2021 11:27 AM [facility] Comment: Interpreted at [facility] [employer] [facility] Laboratory - [address], [place] [address] Automated Review Successful 05/02/2021 11:27 AM CDT [facility] ENTRAL LABORATORY Comment:Specimen processed s uccessfully by automated dinkey engine firer device, ThinPrep Imaging System, [employer] Note The pap test is a screening technique, not a diagnostic procedure. It is used primarily to screen for squamous cancers and precursor lesions. Published studies have shown that it is subject to both false negative and false positive results. The pap test should not be used as the sole means to diagnose or exclude pre-malignant and malignant lesions. 05/02/2021 11:27 AM CDT [facility] Other (Cervical/Vagina l) 04/17/2021 12:00 PM CDT 04/19/2021 8:18 AM CDT Catie Wilson MD PATHOLOGY/CYTOLOG Y [facility] [address] [place] [address], * ANTI HCV (08/15/2012 4:34 PM CARGO HANDLER) ANTI HCV Non-reacti ve [facility] Blood specimen (specimen) BLOOD SPECIMEN / Unknown 08/15/2012 4:34 PM CARGO HANDLER 08/15/2012 4:25 PM CARGO HANDLER Xiomara STEVENS [facility] INTERNAL ZIP [address] [place] [address] * ANTI HIV 1/2 (08/15/2012 4:34 PM CARGO HANDLER) ANTI HIV 1/2 Non-reacti ve [facility] Blood specimen (specimen) BLOOD SPECIMEN / Unknown 08/15/2012 4:34 PM CARGO HANDLER 08/15/2012 4:25 PM CARGO HAND[employer]ER Xiomara ST[facility]ENS [facility] INTERNAL ZIP [address] [place] [address] from Last 3 Months or Most Recently Relevant to Health Maintenance Advance Directives * Full Code (Latest Code Status on File) Date Activated Date Inactivated Comments 02/26/2019 1:58 PM 02/27/2019 6:24 PM * Full Code Date Activated Date Inactivated Comments 02/18/2019 3:25 PM 02/18/2019 7:14 PM * Full Code Date Activated Date Inactivated Comments 12/09/2018 10:53 PM 12/10/2018 4:31 AM Care Teams Mac Operator Relationship Specialty Start Date End Date Pcp, No . PCP - General 02/27/19
== END 2024-01-08 08:52 | disposition home or self-care (01) ==
PROVIDERS: PCP Family Medicine; Visit Provider Physician Assistant
DX: Z83.3 Family history of diabetes mellitus (principal); Z13.220 Encounter for screening for lipoid disorders; Z13.1 Encounter for screening for diabetes mellitus
CPT/HCPCS: 80061; 82947

== ENCOUNTER 2024-08-27 12:19 | Emergency (ER) | payer OTHER, SELFPAY ==
[2024-08-27 12:47] VITALS: BP 131/84; PULSE 92; RESP 20; TEMP 37.1; O2SAT 98; BMI 43.6
[2024-08-27] MEDS: dexAMETHasone 10 MG/ML inj PO (13:43)
[2024-08-27] MEDS: KETOROLAC 30 MG/ML inj IM (13:44)
[2024-08-27 13:47] LABS: Mono Screen* Negative (Negative)
--- NOTE | 2024-08-27 13:54 | ED_ITS ---
HPI - General Adult General Date Seen: 08/27/24 Chief complaint: Ear/Nose/Throat Problem Stated complaint: Throat swelling Time Seen by Provider: 08/27/24 13:01 Source: patient Mode of arrival: ambulatory Limitations: no limitations History of Present Illness HPI narrative: Patient is a 29-year-old female presenting to emergency department for sore throat. 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 Patient started having some symptoms on Saturday and had her and her child checked for COVID/flu/RSV on Saturday. Her daughter tested positive but the patient was negative. She starting to feel better but then symptoms got worse again on Saturday. She is complaining about headache, stuffy nose, sore throat with difficulty swallowing due to the pain. States she has pain going from her ears down to her jaw. Went to urgent care today to be re-evaluated and tested negative for strep. Repeat viral swabs were not done. She was told she possibly has mono and medication was sent to her pharmacy. She states she was told to go to ED if symptoms are worsening. She states the pain feels a got worse so she came to the emergency department. Denies any shortness of breath. Denies chest pain, lightheadedness, dizziness, weakness, numbness. No other concerns noted at this time. Related Data Home Medications ?Medication ?Instructions ?Recorded ?Confirmed Saccharomyces boulardii 250 mg 250 mg PO QDAY 07/09/24 08/27/24 capsule (Probiotic (S.boulardii)) Previous Rx's ?Medication ?Instructions ?Recorded norethindrone (contraceptive) 0.35 0.35 mg PO QDAY #84 tabs 01/20/24 mg tablet (Shari) labetalol 100 mg tablet 100 mg PO BID #180 tabs 07/09/24 albuterol sulfate 90 mcg/actuation 2 puff inhalation Q4-6H PRN 08/24/24 aerosol inhaler shortness of breath or wheezing #6.7 grams azithromycin 250 mg tablet See Rx Instructions PO .COMPLEX #6 08/27/24 (Zithromax Z-Lukas) tabs prednisone 20 mg tablet See Rx Instructions PO QDAY Cough 08/27/24 #10 tabs Allergies Allergy/AdvReac Type Severity Reaction Status Date / Time No Known Allergies Allergy Verified 08/27/24 12:57 Review of Systems Status of ROS: Reports: 10 or more systems reviewed and unremarkable except as noted in History and below [facility] History Vaginal delivery (10/11/22) ?O80 - Encounter for full-term uncomplicated delivery (ICD-10) Migraines ?G43.909 - Migraine, unspecified, not intractable, without status migrainosus (ICD-10) Asthma ?J45.909 - Unspecified asthma, uncomplicated (ICD-10) Hypertension ?I10 - Essential (primary) hypertension (ICD-10) History of endometriosis ?Z87.42 - Personal history of other diseases of the female genital tract (ICD-10) Surgical History Stewart teeth extracted ?K08.409 - Partial loss of teeth, unspecified cause, unspecified class (ICD- 10) Status post laparoscopy (05/10/21) ?Z98.890 - Other specified postprocedural states (ICD-10) History of tonsillectomy ?Z90.89 - Acquired absence of other organs (ICD-10) Family History Paternal Grandmother Breast cancer, Onset Age: 65 Diabetes Paternal Grandfather Colon cancer, Onset Age: 70 Prostate cancer Uncle Suicide Family/Other Heart disease Father High blood pressure Mother High blood pressure Sister High blood pressure Brother High blood pressure 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 . Nonsmoker. Alcohol use: 1 drink every other month. Smoking Status: Never smoker How often do you have a drink containing alcohol: never How often do you have six or more drinks on one occasion: Never AUDIT-C Alcohol total score: 0 Non-prescribed substance use: denies use Exam Narrative: Exam Narrative: Const: Well-nourished, Well-developed, in mild distress Eyes: PERRL, no conjunctival injection, and symmetrical lids HENT: Atraumatic external nose and ears. Moist mucous membranes. Uvula midline, no tonsillar exudate or swelling. There is some notable posterior oropharynx erythema. No tenderness over mastoid process. Tympanic membranes normal bilaterally Neck: Symmetric, trachea midline, No thyromegaly. There is some tenderness noted to her jaw line bilaterally. CVS: RRR, No murmurs or gallops. Peripheral pulses 2+ and equal in all extremities RESP: Unlabored respiratory effort. Clear to auscultation bilaterally. GI: Nontender/Nondistended, No rebound or guarding. MSK:Extremities w/o deformity, Normal Active ROM Skin: Warm, Dry. No rashes or lesions. Neuro: Normal Muscle tone, No focal neurological deficits. Psych: Awake, Alert, & Oriented x3. Appropriate mood and affect. Const: Vital Signs, click to edit/add: Vital Signs - 24 hr 08/27/24 12:47 Temperature 98.8 F Pulse Rate [Pulse Oximeter] 92 Respiratory Rate 20 Blood Pressure [Ri ght Upper Arm] 131/84 Pulse Oximetry 98 Oxygen Delivery Me thod Room Air Course Vital Signs Vital signs: Initial Vital Signs Temperature 98.8 F 08/27/24 12:47 Temperature Source Temporal Artery Scan 08/27/24 12:47 Pulse Rate 92 08/27/24 12:47 Respiratory Rate 20 08/27/24 12:47 Blood Pressure 131/84 08/27/24 12:47 Blood Pressure Mean 99 08/27/24 12:47 Blood Pressure Position Sitting 08/27/24 12:47 Pulse Oximetry 98 08/27/24 12:47 Oxygen Delivery Method Room Air 08/27/24 12:47 Vital Signs Temperature 98.8 F 08/27/24 12:47 Pulse Rate 92 08/27/24 12:47 Respiratory Rate 20 08/27/24 12:47 Blood Pressure 131/84 08/27/24 12:47 Pulse Oximetry 98 08/27/24 12:47 Oxygen Delivery Method Room Air 08/27/24 12:47 Temperature 98.8 F 08/27/24 12:47 Pulse Rate 92 08/27/24 12:47 Respiratory Rate 20 08/27/24 12:47 Blood Pressure 131/84 08/27/24 12:47 Pulse Oximetry 98 08/27/24 12:47 Oxygen Delivery Method Room Air 08/27/24 12:47 Medications Administered Medications: Discontinued Medications Generic Name Dose Route Start Last Admin Trade Name Freq PRN Reason Stop Dose Admin Dexamethasone 10 mg 08/27/24 13:13 08/27/24 13:43 Dexamethasone 10 Mg/Ml Inj PO 08/27/24 13:14 10 mg ONCE ONE Administration Ketorolac Tromethamine 30 mg 08/27/24 13:13 08/27/24 13:44 Ketorolac 30 Mg/Ml Inj IM 08/27/24 13:14 30 mg ONCE ONE Administration Medical Decision Making MDM Narrative Medical decision making narrative: Patient is a 29-year-old female presenting to emergency department for sore throat. Patient is not showing signs of peritonsillar abscess, Bossman angina, retropharyngeal abscess,Lemierre disease or any other concerning oral pharynx or deep neck space abscesses. Imaging is not necessary. Will recheck here for COVID/flu/RSV and check her for mono. Toradol given for pain along with some dexamethasone. Viral swabs and mono test were negative. She still having a sore throat but continues to show no signs of airway compromise. High signs continue to be stable. At this time I a.m. comfortable discharging her. She does have prescription for prednisone and a Z-Lukas provided by Urgent Care. She will pick these up. I informed her to return for any new or worsening symptoms she is agreeable to this plan. Lab Data Labs: Lab Results 08/27/24 08/27/24 Range/Units 13:22 13:31 SARS-CoV-2 (PCR) Negative SARS-CoV-2 (Negative) Monoscreen Negative (Negative) Influenza Type A (PCR) Negative PCR FLU A (Negative) Influenza Type B (PCR) Negative PCR FLU B (Negative) RSV (PCR) Negative PCR RSV (Negative) Discharge Plan Discharge Clinical Impression: Pharyngitis Qualifiers: Pharyngitis/tonsillitis etiology: unspecified etiology Qualified Code(s): J02.9 - Acute pharyngitis, unspecified Patient Disposition: Home, Self-Care Condition: Stable Instructions: Pharyngitis (ED) Additional Instructions: Follow-up with the primary care provider if also not improving by next week. 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 Return to emergency department for difficulty breathing, swelling underneath your tongue or any other new or worsening symptoms. Prescriptions: No Action Saccharomyces boulardii [Probiotic (S.boulardii)] 250 mg capsule 250 mg PO QDAY labetalol 100 mg tablet 100 mg PO BID Qty: 180 1RF prednisone 20 mg tablet See Rx Instructions PO QDAY Qty: 10 0RF Rx Instructions: Two p.o. as single dose x 5 days. Then discontinue. azithromycin [Zithromax Z-Lukas] 250 mg tablet See Rx Instructions PO .COMPLEX Qty: 6 0RF Rx Instructions: For 250 mg dose pack: take 500 mg today (day 1), then 250 mg for 4 days (days 2-5) PO albuterol sulfate 90 mcg/actuation HFA aerosol inhaler 2 puff inhalation Q4-6H PRN (Reason: shortness of breath or wheezing) Qty: 6.7 0RF norethindrone (contraceptive) [Shari] 0.35 mg tablet 0.35 mg PO QDAY Qty: 84 2RF Follow Up/Referrals: Horacio Santana MD [Primary Care Provider] - Stand Alone Forms: [facility] Info Instructions
[2024-08-27 14:19] LABS: PCR FLU A Negative PCR FLU A (Negative); PCR FLU B Negative PCR FLU B (Negative); PCR RSV Negative PCR RSV (Negative); SARS PCR* Negative SARS-CoV-2 (Negative)
== END 2024-08-27 14:55 | disposition home or self-care (01) ==
PROVIDERS: Emergency Provider Student in an Organized Health Care Education/Training Program; PCP Family Medicine
DX: J02.9 Acute pharyngitis, unspecified (principal)
CPT/HCPCS: 36415; 86308; 87631; 96372; 99283; 99284; J1100; J1885

== ENCOUNTER 2025-02-11 11:19 | Outpatient (CLI) | payer OTHER, SELFPAY ==
--- NOTE | 2025-02-11 11:30 | CRLHL7_ITS ---
For Patients: As a result of the Cures Act, medical imaging exams and procedure reports are released immediately into your electronic medical record. You may view this report before your referring provider. If you have questions, please contact your health care provider. LMP: 12/13/2024. FATMATA by LMP: 09/09/2025. GA: 10w, 0d. INDICATION: Dating. TECHNIQUE: Transabdominal obstetric ultrasound images were obtained. CRL: 3.8 cm, 10w 5d, FATMATA 09/04/2025. FHR: 178 bpm. GESTATIONAL SAC: 4.8 cm, appears within normal limits. YOLK SAC: 5.7 mm, appears within normal limits. RIGHT OVARY: Not visualized. LEFT OVARY: Not visualized. IMPRESSION: Single living intrauterine measuring 10 weeks 5 days and sonographic due date 09/04/2025. Horacio Perez M.D. Diagnostic Radiologist [email or web address] bM/Dictated by: Horacio Perez MD @ 02/11/2025 4:16:00 PM (Electronically Signed)
== END 2025-02-11 11:20 | disposition home or self-care (01) ==
PROVIDERS: PCP Family Medicine; Visit Provider Advanced Practice Midwife
DX: Z34.91 Encounter for supervision of normal pregnancy, unspecified, first trimester (principal); Z3A.10 10 weeks gestation of pregnancy
CPT/HCPCS: 76801; 82565; 82570; 83021; 84156; 84450; 84460; 84520; 86703; 86706; 86803; 86850; 86900; 86901; 87086; 87340; 87491; 87591; 87624; 88142

== ENCOUNTER 2025-02-11 11:48 | Outpatient (CLI) | payer OTHER, SELFPAY ==
[2025-02-11 18:04] LABS: Chlamydia DNA Amplified* NOT DETECTED (No Detected); GC DNA Amplified* NOT DETECTED (No Detected)
[2025-02-14 00:58] LABS: HPV Source Cervix; HPV, High Risk by TMA Not Detected
== END 2025-02-11 11:49 | disposition home or self-care (01) ==
PROVIDERS: PCP Family Medicine; Visit Provider Physician Assistant
DX: Z34.91 Encounter for supervision of normal pregnancy, unspecified, first trimester (principal)
CPT/HCPCS: 82565; 82570; 83020; 83021; 84156; 84450; 84460; 84520; 85660; 86592; 86703; 86704; 86706; 86762; 86787; 86803; 86850; 86900; 86901; 87086; 87340; 87491; 87591; 87624; 87625; 88141; 88142

== ENCOUNTER 2025-03-19 11:58 | Outpatient (CLI) | payer OTHER, SELFPAY | END 2025-03-19 11:59 | disposition home or self-care (01) | PROVIDERS: PCP Family Medicine; Visit Provider Physician Assistant | DX: O10.912 Unspecified pre-existing hypertension complicating pregnancy, second trimester (principal); O99.212 Obesity complicating pregnancy, second trimester; Z3A.15 15 weeks gestation of pregnancy | CPT/HCPCS: 82570; 84156; 84450; 84460 ==

== ENCOUNTER 2025-04-02 13:32 | Outpatient (CLI) | payer OTHER, SELFPAY ==
--- NOTE | 2025-04-02 13:45 | CRLHL7_ITS ---
For Patients: As a result of the Century Cures Act, medical imaging exams and procedure reports are released immediately into your electronic medical record. You may view this report before your referring provider. If you have questions, please contact your health care provider. INDICATION: abnormal liver enzymes COMPARISON: CT 07/05/2020 TECHNIQUE: Real time beasley scale imaging and color Doppler analysis was performed of the right upper quadrant. FINDINGS: The patient`s liver is of normal size and has mildly increased echogenicity. There is a normal appearance of the hepatic IVC and proximal abdominal aorta. There is no evidence of ascites. The gallbladder is of normal size and there is no evidence of intraluminal stones or sludge. The gallbladder wall measures 2 mm in thickness. The common bile duct is of normal size and measures 3 mm in diameter at the level of the jay hepatis. The visualized pancreas appears normal. There is no evidence of a stone or hydronephrosis within the right kidney. The right kidney measures 9.6 cm in length. IMPRESSION: Mild hepatic steatosis. Remainder unremarkable. Dictated by Horacio Perez MD @ 04/05/2025 7:09:11 AM (Electronically Signed)
== END 2025-04-02 13:33 | disposition home or self-care (01) ==
LOC: US 13:33
PROVIDERS: PCP Family Medicine; Visit Provider Physician Assistant
DX: R74.8 Abnormal levels of other serum enzymes (principal); K76.0 Fatty (change of) liver, not elsewhere classified
CPT/HCPCS: 76705

== ENCOUNTER 2025-06-09 13:14 | Outpatient (CLI) | payer OTHER, SELFPAY | END 2025-06-09 13:15 | disposition home or self-care (01) | LOC: NFLDREF 06-14 07:56 | PROVIDERS: PCP Family Medicine; Referring Provider Family Medicine; Visit Provider Obstetrics & Gynecology | DX: Z34.92 Encounter for supervision of normal pregnancy, unspecified, second trimester (principal) | CPT/HCPCS: 86592 ==

== ENCOUNTER 2025-06-23 13:46 | Outpatient (CLI) | payer OTHER, SELFPAY ==
--- NOTE | 2025-06-23 14:00 | CRLHL7_ITS ---
For Patients: As a result of the Cures Act, medical imaging exams and procedure reports are released immediately into your electronic medical record. You may view this report before your referring provider. If you have questions, please contact your health care provider. OB ULTRASOUND FATMATA by LMP: 09/19/2025. GA: 28 w, 6 d. Single. Comparison: [facility] (Outside facility and 02/11/2025. INDICATION: CHTN on meds. TECHNIQUE: Real time beasley scale imaging of the fetus was performed. Transabdominal. CERVIX: Not visualized. Measurement: POSITIONING: Transverse. AMNIOTIC FLUID: 7.5 cm. SDP (N: greater than 2 x 1 cm) PLACENTA: Technique: Transabdominal. PLACENTA POSITION: Anterior. DOPPLER: heart rate: 141 bpm. BIOMETRY: BPD: 7.4 cm. 29 w, 5 d, 67.3 percent. HC: 28.5 cm. 31 w, 2 d, 86.8 percent. AC: 26.9 cm. 31 w, 0 d, 93.2 percent. FL: 5.1 cm. 27 w, 1 d, 4.4 percent. FL/AC ratio: 18.88 percent. HC/AC ratio: 1.06. EFW: 1442 g. Weight: 3 lbs, 3 oz. age by this US: 29 w, 6 d. FATMATA by this US: 09/02/2025. Percentile by FATMATA: 69.6 percent. IMPRESSION: 1. Sonographic gestational age 29 weeks 6 days and sonographic due date 09/02/2025. Sonographic age is 1 week ahead of the clinical age. 2. Estimated weight 70th percentile. Abdominal circumference 93rd percentile. Horacio Perez M.D. Diagnostic Radiologist [email or web address] OVIDIO/beverly JR/Dictated by: Horacio Perez MD @ 06/24/2025 7:48:00 AM (Electronically Signed)
== END 2025-06-23 13:47 | disposition home or self-care (01) ==
LOC: US 13:47
PROVIDERS: PCP Family Medicine; Visit Provider Obstetrics & Gynecology
DX: O10.913 Unspecified pre-existing hypertension complicating pregnancy, third trimester (principal); O36.63X0 Maternal care for excessive fetal growth, third trimester, not applicable or unspecified; Z3A.28 28 weeks gestation of pregnancy
CPT/HCPCS: 76816

== ENCOUNTER 2025-07-14 14:04 | Outpatient (CLI) | payer OTHER, SELFPAY | END 2025-07-14 14:05 | disposition home or self-care (01) | LOC: NFLDREF 07-29 16:14 | PROVIDERS: PCP Family Medicine; Referring Provider Family Medicine; Visit Provider Obstetrics & Gynecology | DX: O10.913 Unspecified pre-existing hypertension complicating pregnancy, third trimester (principal); Z3A.31 31 weeks gestation of pregnancy | CPT/HCPCS: 82565; 82570; 84156; 84450; 84460 ==

== ENCOUNTER 2025-07-14 14:05 | Outpatient (CLI) | payer OTHER, SELFPAY ==
--- NOTE | 2025-07-14 14:00 | CRLHL7_ITS ---
For Patients: As a result of the Cures Act, medical imaging exams and procedure reports are released immediately into your electronic medical record. You may view this report before your referring provider. If you have questions, please contact your health care provider. OB ULTRASOUND BIOPHYSICAL PROFILE CLINICAL HISTORY: CHTN, on meds. TECHNIQUE: Real time beasley scale imaging of the fetus was performed. Transabdominal imaging performed. COMPARISON: 06/23/2025. FINDINGS: LMP: 12/13/2024. FATMATA by LMP: 09/09/2025. GA: 31 weeks 6 days. Gestation: Single. Cervix: Not visualized. Positioning: Vertex. Amniotic Fluid: 19.3 cm AZAM. 8.2 cm SDP. BIOPHYSICAL PROFILE Gross Body Movements: 2 Tone: 2 Respiratory Activity: 2 Amniotic Fluid SDP: 2 Total Score: 8 Placenta: Technique: TA. Placenta Position: Anterior. Dopplers: Heart Rate: 161 bpm. BIOMETRY BPD: 8.2 cm, 33 weeks 0 days. 74% HC: 29.6 cm, 32 weeks 5 days. 35% AC: 27.6 cm, 31 weeks 5 days. 43% FL: 5.9 cm, 30 weeks 6 days. 14% FL/AC Ratio: 21.43% HC/AC Ratio: 1.07. EFW: 1808 grams, 4 lb 0 oz. Age by this US: 32 weeks 1 day. FATMATA by this US: 09/07/2025. Percentile by FATMATA: 32% IMPRESSION: 1. Normal biophysical profile of 04/09. 2. Sonographic gestational age 32 weeks 1 day and sonographic due date 09/07/2024. Good correlation with dates. Normal interval growth. 3. Estimated weight 32nd percentile. Abdominal circumference 43rd percentile. Horacio Perez M.D. Diagnostic Radiologist [email or web address] Transcribed: 4:11 pm DW/Dictated by: Horacio Perez MD @ 07/14/2025 3:57:00 PM (Electronically Signed)
== END 2025-07-14 14:06 | disposition home or self-care (01) ==
LOC: US 14:05
PROVIDERS: PCP Family Medicine; Visit Provider Obstetrics & Gynecology
DX: O10.913 Unspecified pre-existing hypertension complicating pregnancy, third trimester (principal); Z3A.32 32 weeks gestation of pregnancy
CPT/HCPCS: 76816; 76819

== ENCOUNTER 2025-07-21 13:38 | Outpatient (CLI) | payer OTHER, SELFPAY | END 2025-07-21 13:39 | disposition home or self-care (01) | LOC: NFLDREF 07-29 17:48 | PROVIDERS: PCP Family Medicine; Referring Provider Family Medicine; Visit Provider Obstetrics & Gynecology | DX: O10.913 Unspecified pre-existing hypertension complicating pregnancy, third trimester (principal); O99.213 Obesity complicating pregnancy, third trimester; Z3A.32 32 weeks gestation of pregnancy | CPT/HCPCS: 82565; 82570; 84156; 84450; 84460 ==

== ENCOUNTER 2025-07-21 13:38 | Outpatient (CLI) | payer OTHER, SELFPAY ==
--- NOTE | 2025-07-21 14:00 | CRLHL7_ITS ---
For Patients: As a result of the Century Cures Act, medical imaging exams and procedure reports are released immediately into your electronic medical record. You may view this report before your referring provider. If you have questions, please contact your health care provider. INDICATION: CHTN TECHNIQUE: Ultrasound OB pelvis transabdominal. Real-time beasley-scale imaging of the fetus was performed. COMPARISON: Ob ultrasound 07/14/2025 FINDINGS: Gestation: Single Presentation: Breech Placenta location: Anterior heart rate: 146 bpm Cervix: Not visualized Amniotic fluid volume single deepest pocket 7.7 cm, 2/2. motion 2/2. tone 2/2. breathing movements 2/2. IMPRESSION: Single live intrauterine gestation with a biophysical profile 04/09 at 32 weeks, 6 days. FATMATA of 09/09/2025. Similar borderline polyhydramnios with single deepest pocket of 7.7 cm Dictated by Tea Eli MD @ 07/21/2025 3:45:30 PM (Electronically Signed)
== END 2025-07-21 13:39 | disposition home or self-care (01) ==
LOC: US 13:38
PROVIDERS: PCP Family Medicine; Visit Provider Obstetrics & Gynecology
DX: O10.919 Unspecified pre-existing hypertension complicating pregnancy, unspecified trimester (principal)
CPT/HCPCS: 76819

== ENCOUNTER 2025-07-30 10:10 | Outpatient (CLI) | payer OTHER, SELFPAY | END 2025-07-30 10:11 | disposition home or self-care (01) | LOC: NFLDREF 08-05 02:08 | PROVIDERS: PCP Family Medicine; Referring Provider Family Medicine; Visit Provider Obstetrics & Gynecology | DX: O10.913 Unspecified pre-existing hypertension complicating pregnancy, third trimester (principal); Z3A.34 34 weeks gestation of pregnancy | CPT/HCPCS: 82565; 82570; 84156; 84450; 84460 ==

== ENCOUNTER 2025-07-30 10:14 | Outpatient (CLI) | payer OTHER, SELFPAY ==
--- NOTE | 2025-07-30 10:45 | CRLHL7_ITS ---
For Patients: As a result of the Century Cures Act, medical imaging exams and procedure reports are released immediately into your electronic medical record. You may view this report before your referring provider. If you have questions, please contact your health care provider. INDICATION: Chronic hypertension. COMPARISON: OB ultrasound 07/21/2025. TECHNIQUE: Ultrasound OB pelvis transabdominal. Real time grayscale imaging of the fetus was performed without non-stress testing. FINDINGS: Sonographic imaging demonstrates a single living intrauterine gestation. The fetus has a regular cardiac rate of 150 beats per minute. The fetus has a cephalic orientation. The placenta lies anteriorly. Single deepest pocket measures 7.6 cm. breathing movements: 2/2 Gross body movements: 2/2 tone: 2/2 Amniotic fluid volume: 2/2 Total: 04/09 IMPRESSION: Normal biophysical profile score 8 out of 8. Dictated by Kenyatta Liriano MD @ 07/31/2025 3:21:59 AM (Electronically Signed)
== END 2025-07-30 10:15 | disposition home or self-care (01) ==
LOC: US 10:15
PROVIDERS: PCP Family Medicine; Visit Provider Obstetrics & Gynecology
DX: O10.913 Unspecified pre-existing hypertension complicating pregnancy, third trimester (principal); Z3A.34 34 weeks gestation of pregnancy
CPT/HCPCS: 76819

== ENCOUNTER 2025-08-04 12:41 | Outpatient (CLI) | payer OTHER, SELFPAY ==
--- NOTE | 2025-08-04 13:31 | P.LACCB_ITS ---
Consult Note - Mom Date of Visit Date of visit: 08/04/25 Reason for consultation: Other ( consult) Visit Code: Visit Patient's Information Phone number: [phone] : 5 Para: 3 Allergies No Known Allergies Allergy (Verified 08/04/25 10:15) Mother's Medical History: Medical History (Updated 07/30/25 @ 11:42 by Deirdre Lilly CNM) Vaginal delivery (10/11/22) ?O80 - Encounter for full-term uncomplicated delivery (ICD-10) Migraines ?G43.909 - Migraine, unspecified, not intractable, without status migrainosus (ICD-10) Asthma ?J45.909 - Unspecified asthma, uncomplicated (ICD-10) Hypertension ?I10 - Essential (primary) hypertension (ICD-10) History of endometriosis ?Z87.42 - Personal history of other diseases of the female genital tract (ICD-10) 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 EDC is 09/09/25; expecting to be induced 08/20/25. This is her 4th baby. Her BFing history is: 1st baby, boy, 12 y.o. He didn't latch well and she nursed for about 2 weeks, needed SNS the whole time. 2nd baby, boy, Latched better, BF x4 mos, returned to work, needed to add formula and BF some until 6 mos of age. 3rd baby, girl. Exc BF until 17 mos, good supply. Was working from home and could nurse baby more readily and needed less pumping. 4th baby: hopes to exc BF/provide EBM. Would like option of a bottle once/day, wondering when/how to do that to maximize success with BF, questions about pacifiers, bottle options/bottle feeding, pumping routine. topics discussed and questions answered: [place] Hour after and getting started with Importance of latch for milk transfer and less/minimal nipple pain What to expect the first few days of feeding Baby hunger cues What the feeding routine looks like Nipple care milk expression: pumping vs. hand expression Skin to skin Breast pump information- will be getting a Spectra so Spectra pump settings reviewed Specifically discussed exc BF for first 3-4 weeks, then add bottle. One/day is typically well tolerated and still supports Pumping in first few weeks only as needed to relieve fullness, can add in one pump/day for storage around 2-3 weeks of age When give a bottle, also pump at that feeding to give body message of making milk and keep breasts comfortable Discussed pacifier options - avoid pacifiers with bulb to keep suck closer to BFing Bottle options discussed as well as paced bottle feeding Nipple care measures reviewed Inpatient and outpatient services discussed Education provided: Early feeding cues to maximize timing of latching, Asymmetric latch technique for wide/deep latch to increase milk, Transfer for baby and increase comfort for mom, Supply/demand nature of milk supply, Need for frequent stimulation/milk removal, Sore nipple treatment options, Hand expression, Alternative feeding methods (SNS, cup, finger feeding, bottling), Pumping for milk management and Milk collection, storage Follow-Up Suggested follow up: Appointment as needed Time Spent Time spent with patient (min): 45 Meds Home Medications and Allergies Home Medications ?Medication ?Instructions ?Recorded ?Confirmed ?Type albuterol sulfate 90 mcg/actuation 2 puff inhalation Q 4-6H PRN 08/24/24 08/04/25 Rx aerosol inhaler shortness of breath or wheez ing #6.7 grams choline bitartrate 300 mg mg PO 10/13/24 08/04/25 Hist ory tablet,extended release docosahexaenoic acid 200 mg mg PO 10/13/24 08/04/25 Hi story capsule ( DHA) ondansetron 4 mg disintegrating 4 mg PO Q8H PRN nausea and 02/15/25 08/04/25 Rx tablet vomiting #30 tabs aspirin 81 mg chewable tablet 81 mg PO QDAY 04/16/25 1 10/05/24 History labetalol 100 mg tablet 100 mg PO BID #180 tabs 04/2608/04/25 Rx Allergies Allergy/AdvReac Type Severity Reaction Status Date / Time No Known Allergies Allergy Verified 08/04/25 10:15
== END 2025-08-04 12:42 | disposition home or self-care (01) ==
PROVIDERS: PCP Family Medicine; Visit Provider Obstetrics & Gynecology
DX: Z39.1 Encounter for care and examination of lactating mother (principal)
CPT/HCPCS: G0463

== ENCOUNTER 2025-08-04 13:40 | Outpatient (CLI) | payer OTHER, SELFPAY | END 2025-08-04 13:41 | disposition home or self-care (01) | LOC: NFLDREF 08-05 13:47 | PROVIDERS: PCP Family Medicine; Referring Provider Family Medicine; Visit Provider Obstetrics & Gynecology | DX: O10.913 Unspecified pre-existing hypertension complicating pregnancy, third trimester (principal); Z3A.34 34 weeks gestation of pregnancy | CPT/HCPCS: 82565; 82570; 84156; 84450; 84460 ==

== ENCOUNTER 2025-08-04 13:48 | Outpatient (CLI) | payer OTHER, SELFPAY ==
--- NOTE | 2025-08-04 14:00 | CRLHL7_ITS ---
For Patients: As a result of the Century Cures Act, medical imaging exams and procedure reports are released immediately into your electronic medical record. You may view this report before your referring provider. If you have questions, please contact your health care provider. INDICATION: Chronic hypertension COMPARISON: 07/30/2025 TECHNIQUE: Grayscale and color ultrasound of the uterus and fetus from a transabdominal approach. FINDINGS: Provided gestational age: 34 weeks 6 days Single intrauterine gestation in a cephalic/vertex presentation. heart rate is 200 bpm. The heart, stomach, kidneys, and bladder appear normal. No pleural effusion, pericardial effusion, ascites, or skin edema. Growth biometry not performed. The placenta is anterior. WELLBEING tone: 2/2 movement: 2/2 breathin/2 Amniotic fluid volume: 2/2 The single deepest vertical pocket measures: 7.3 cm. IMPRESSION: 1. Biophysical profile score 6/8. No points for breathing. 2. tachycardia, 200 beats per minute. Fingernail Former indicates Dr. Aguilar was notified and the patient taken to Dictated by Kylah Jules MD @ 08/04/2025 2:39:02 PM (Electronically Signed)
== END 2025-08-04 13:49 | disposition home or self-care (01) ==
LOC: US 13:49
PROVIDERS: PCP Family Medicine; Visit Provider Obstetrics & Gynecology
DX: O10.913 Unspecified pre-existing hypertension complicating pregnancy, third trimester (principal); O99.213 Obesity complicating pregnancy, third trimester; Z3A.34 34 weeks gestation of pregnancy; Z39.1 Encounter for care and examination of lactating mother
CPT/HCPCS: 76819

== ENCOUNTER 2025-08-04 21:12 | Observation (INO) | payer OTHER, SELFPAY ==
[2025-08-04] VITALS (73 sets, daily range): BP systolic 110–123; BP diastolic 59–83; PULSE 92–127; RESP 16–18; TEMP 37–39.3; O2SAT 89–100
--- NOTE | 2025-08-04 14:51 | CRLHL7_ITS ---
For Patients: As a result of the Century Cures Act, medical imaging exams and procedure reports are released immediately into your electronic medical record. You may view this report before your referring provider. If you have questions, please contact your health care provider. INDICATION: Dyspnea. TECHNIQUE: Chest 1 views. COMPARISON: August 24, 2024. FINDINGS: Cardiovascular and mediastinum: Heart size and vasculature are normal in caliber and appearance. Lungs and pleural spaces: Lungs are clear. No sign of infiltrate or mass. No sign of pleural effusion. No pneumothorax. Bones and soft tissues: No significant findings. IMPRESSION: No acute or significant findings. Dictated by Carlos Stone MD @ 08/04/2025 3:23:49 PM (Electronically Signed)
[2025-08-04] MEDS: LACTATED RINGERS 1000 ML 1,000 ML IV (15:15)
[2025-08-04] MEDS: ACETAMINOPHEN 500 MG TABLET 1000 MG PO ×2 (15:15→21:33)
[2025-08-04 15:34] LABS: Lactate* 1.0 mmol/L (0.5-1.9)
[2025-08-04 15:36] LABS: Hematocrit* 35.0 % (33.0-51.0); Hemoglobin* 11.6 gm/dL (12.0-16.0); Immature Granulocytes Abs Auto 0.01 K/uL (0.00-0.30); Immature Granulocytes Pct Auto 0.2 %; Lymphocytes Absolute Auto 1.68 K/uL (0.90-2.90); Mean Corpuscular HGB Conc 33 gm/dL (32-36); Mean Corpuscular Hemoglobin 28 pg (26-34); Mean Corpuscular Volume 84 fL (80-100); RDW Coefficient of Variation % 12.3 % (11.5-15.5); Red Blood Count* 4.18 m/uL (4.00-5.20); White Blood Count* 6.51 K/uL (4.50-11.00)
[2025-08-04 15:39] LABS: Slide Review Reflex No
[2025-08-04 16:04] LABS: Chloride* 103 mmol/L (96-114); Potassium* 4.0 mmol/L (3.6-5.1); Sodium* 130 mmol/L (135-149)
[2025-08-04 16:07] LABS: Anion Gap 11 mEq/L (7-15); Blood Urea Nitrogen* 6 mg/dL (5-24); Calcium* 8.5 mg/dL (8.4-10.6); Carbon Dioxide* 16 mmol/L (20-32); Creatinine* 0.6 mg/dL (0.5-1.5); Estimated Glomerular Filt Rate 124 ml/min; Glucose* 76 mg/dL (60-115)
[2025-08-04 16:30] LABS: PCR FLU A Negative PCR FLU A (Negative); PCR FLU B Negative PCR FLU B (Negative); PCR RSV Negative PCR RSV (Negative); SARS PCR* Negative SARS-CoV-2 (Negative)
[2025-08-04 16:52] LABS: TSH With Reflex to FT4* 0.648 uIU/mL (0.270-4.200)
[2025-08-04 17:23] LABS: Appearance Urine Clear (Clear)
--- NOTE | 2025-08-04 17:46 | P.OBLDTN_ITS ---
OB - Triage/Final Diagnosis Visit Information Time Seen by Provider: 18:56 Narrative: Kylah is a 30yo at 34w6d GA admitted for tachycardia. Evaluation Laboratory results: Laboratory Tests 08/04/25 08/04/25 08/04/25 Range/Units 15:38 15:30 15:24 WBC 6.51 (4.50-11.00) K/uL RBC 4.18 (4.00-5.20) m/uL Hgb 11.6 L (12.0-16.0) gm/dL Hct 35.0 (33.0-51.0) % MCV 84 (80-100) fL MCH 28 (26-34) pg MCHC 33 (32-36) gm/dL RDW Coeff of [place] 12.3 (11.5-15.5) % Plt Count 183 (140-440) K/uL Neut % (Auto) 67.9 (42.0-72.0) % Lymph % (Auto) 25.8 (20-44) % [place] % (Auto) 5.4 (0.0-11.0) % Eos % (Auto) 0.5 (0.0-7.0) % Baso % (Auto) 0.2 (0.0-3.0) % Neut # (Auto) 4.43 (1.7-7.0) K/uL Lymph # (Auto) 1.68 (0.90-2.90) K/uL [place] # (Auto) 0.40 (0.00-0.90) K/UL Eos # (Auto) 0.03 (0.00-0.50) K/uL Baso # (Auto) 0.01 (0.00-0.30) K/uL Abs Immat Gran (auto) 0.01 (0.00-0.30) K/uL Imm/Tot Granulo (auto) 0.2 % Sodium 130 L (135-149) mmol/L Potassium 4.0 (3.6-5.1) mmol/L Chloride 103 (96-114) mmol/L Carbon Dioxide 16 L (20-32) mmol/L Anion Gap 11 (7-15) mEq/L BUN 6 (5-24) mg/dL Creatinine 0.6 (0.5-1.5) mg/dL Estimated GFR 124 ml/min Glucose 76 (60-115) mg/dL Lactate 1.0 (0.5-1.9) mmol/L Calcium 8.5 (8.4-10.6) mg/dL TSH 0.648 (0.270-4.200) uIU/mL Urine Color (Yellow) Urine Appearance (Clear) Urine pH (5.0-8.5) Ur Specific [place] (1.000-1.030) Urine Protein (Negative) Urine Glucose (UA) (Negative) Urine Ketones (Negative) Urine Blood (Negative) Urine Nitrite (Negative) Urine Bilirubin (Negative) Urine Urobilinogen (0.2-1.0) Ur Leukocyte Esterase (Negative) Urine RBC Urine WBC Ur Squamous Epith Cells Urine Bacteria SARS-CoV-2 (PCR) Negative SARS-CoV-2 (Negative) Influenza Type A (PCR) Negative PCR FLU A (Negative) Influenza Type B (PCR) Negative PCR FLU B (Negative) RSV (PCR) Negative PCR RSV (Negative) Group B Strep DNA Pending 08/04/25 Range/Units 15:14 WBC (4.50-11.00) K/uL RBC (4.00-5.20) m/uL Hgb (12.0-16.0) gm/dL Hct (33.0-51.0) % MCV (80-100) fL MCH (26-34) pg MCHC (32-36) gm/dL RDW Coeff of [place] (11.5-15.5) % Plt Count (140-440) K/uL Neut % (Auto) (42.0-72.0) % Lymph % (Auto) (20-44) % [place] % (Auto) (0.0-11.0) % Eos % (Auto) (0.0-7.0) % Baso % (Auto) (0.0-3.0) % Neut # (Auto) (1.7-7.0) K/uL Lymph # (Auto) (0.90-2.90) K/uL [place] # (Auto) (0.00-0.90) K/UL Eos # (Auto) (0.00-0.50) K/uL Baso # (Auto) (0.00-0.30) K/uL Abs Immat Gran (auto) (0.00-0.30) K/uL Imm/Tot Granulo (auto) % Sodium (135-149) mmol/L Potassium (3.6-5.1) mmol/L Chloride (96-114) mmol/L Carbon Dioxide (20-32) mmol/L Anion Gap (7-15) mEq/L BUN (5-24) mg/dL Creatinine (0.5-1.5) mg/dL Estimated GFR ml/min Glucose (60-115) mg/dL Lactate (0.5-1.9) mmol/L Calcium (8.4-10.6) mg/dL TSH (0.270-4.200) uIU/mL Urine Color Yellow (Yellow) Urine Appearance Clear (Clear) Urine pH 6.0 (5.0-8.5) Ur Specific [place] 1.015 (1.000-1.030) Urine Protein Trace A (Negative) Urine Glucose (UA) Negative (Negative) Urine Ketones 2+ A (Negative) Urine Blood Negative (Negative) Urine Nitrite Negative (Negative) Urine Bilirubin Negative (Negative) Urine Urobilinogen 0.2 (0.2-1.0) Ur Leukocyte Esterase 2+ A (Negative) Urine RBC Pending Urine WBC Pending Ur Squamous Epith Cells Pending Urine Bacteria Pending SARS-CoV-2 (PCR) (Negative) Influenza Type A (PCR) (Negative) Influenza Type B (PCR) (Negative) RSV (PCR) (Negative) Group B Strep DNA Vital signs: Vital Signs - 24 hr 08/04/25 14:19 08/04/25 14:24 08/04/25 14:25 Temperature 102.1 F H Pulse Rate Respiratory Rate 18 Blood Pressure Pulse Oximetry 100 99 08/04/25 14:29 08/04/25 14:34 08/04/25 14:36 Temperature Pulse Rate Respiratory Rate Blood Pressure 119/78 Pulse Oximetry 99 100 08/04/25 14:36 08/04/25 14:39 08/04/25 14:44 Temperature Pulse Rate 95 Respiratory Rate Blood Pressure Pulse Oximetry 99 100 08/04/25 14:45 08/04/25 14:45 08/04/25 14:49 Temperature Pulse Rate 103 H Respiratory Rate Blood Pressure 115/75 Pulse Oximetry 100 08/04/25 14:54 08/04/25 14:55 08/04/25 14:55 Temperature Pulse Rate 96 Respiratory Rate Blood Pressure 121/83 Pulse Oximetry 100 08/04/25 14:59 08/04/25 15:04 08/04/25 15:09 Temperature Pulse Rate Respiratory Rate Blood Pressure Pulse Oximetry 98 100 100 08/04/25 15:14 08/04/25 15:19 08/04/25 15:24 Temperature Pulse Rate Respiratory Rate Blood Pressure Pulse Oximetry 100 98 97 08/04/25 15:29 08/04/25 15:34 08/04/25 15:39 Temperature Pulse Rate Respiratory Rate Blood Pressure Pulse Oximetry 98 98 98 08/04/25 15:44 08/04/25 15:49 08/04/25 15:54 Temperature Pulse Rate Respiratory Rate Blood Pressure Pulse Oximetry 97 97 98 08/04/25 15:56 08/04/25 15:56 08/04/25 15:57 Temperature 98.6 F Pulse Rate 114 H Respiratory Rate 16 Blood Pressure 118/66 Pulse Oximetry 08/04/25 15:59 08/04/25 16:04 08/04/25 16:09 Temperature Pulse Rate Respiratory Rate Blood Pressure Pulse Oximetry 97 97 98 08/04/25 16:14 08/04/25 16:19 08/04/25 16:24 Temperature Pulse Rate Respiratory Rate Blood Pressure Pulse Oximetry 98 97 97 08/04/25 16:29 08/04/25 16:34 08/04/25 16:39 Temperature Pulse Rate Respiratory Rate Blood Pressure Pulse Oximetry 97 97 97 08/04/25 16:44 08/04/25 16:49 08/04/25 17:05 Temperature Pulse Rate Respiratory Rate Blood Pressure Pulse Oximetry 97 99 98 08/04/25 17:10 08/04/25 17:10 08/04/25 17:11 Temperature Pulse Rate 104 H Respiratory Rate Blood Pressure 110/59 L Pulse Oximetry 99 08/04/25 17:16 08/04/25 17:21 08/04/25 17:26 Temperature Pulse Rate Respiratory Rate Blood Pressure Pulse Oximetry 99 99 98 08/04/25 17:31 08/04/25 17:36 08/04/25 17:41 Temperature Pulse Rate Respiratory Rate Blood Pressure Pulse Oximetry 99 100 95
--- NOTE | 2025-08-04 19:03 | P.OBHP_ITS ---
OB - H&P; HPI Antepartum History of Present Illness Date Seen: 08/04/25 Chief complaint: Maternity Narrative: Kylah is a 30yo at 34w6d GA who was seen in triage for tachycardia. Patient was presenting for routine OB visit, including preeclampsia labs and testing. is complicated by chronic hypertension on medications, intermittently elevated LFTs, hepatic steatosis, obesity, asthma, ADHD, anxiety/depression. At time of BPP, I was notified of heart rate in the 200s. Recommended transfer to triage for monitoring. On arrival, tachycardia was noted with a baseline of 180 beats per minute with accelerations to 200. Moderate variability was noted. Maternal tachycardia and fever was noted. I presented bedside, where patient notes she has been feeling unwell since the early hours of this morning. She specifically notes chills sensations and shakes. She had 1 episode of emesis this morning, notes it was shortly after brushing her teeth which is night entirely uncommon for her. She denies any nasal drainage, cough, sore throat, neck stiffness, nausea, dysuria, urgency/frequency, back or flank pain, bowel changes. 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 Denies chest pain, dyspnea, lower extremity edema or erythema. She denies contractions, vaginal bleeding, leaking of fluid. Endorses active movement. Evaluation included CBC with differential, BMP, LFTs were previously obtained, lactate, UA/UC, chest x-ray, blood cultures. She received 1L of IV crystalloid and 1000 mg p.o. Tylenol. Infectious evaluation is overall reassuring, with no leukocytosis noted. Fever was noted to break, with resolution of tachycardia. Intermittent maternal tachycardia persists, those this does seem to be her historic baseline per clinic vitals. Specific Issues/Plans Partner: Timmy H&P: [] # History of gestational hypertension x2, now chronic hypertension Labetalol 100 mg b.i.d. Baseline preeclampsia labs: AST 59 and ALT 48 mildly elevated, repeat 03/19/25: AST 49H/ALT48H Right upper quadrant ultrasound: mild hepatic steatosis pr/cr ratio:0.02 24 hour urine 03/19/25: 32.5 (low urine volume) Aspirin 81 mg Growth ultrasound every 4 weeks starting at 28 weeks Weekly BPP starting at 32 weeks Weekly pre E labs starting at 32 weeks - testing scheduled Delivery recommended 37- 39 6/7 weeks: IOL request form submitted on 07/14 for 37-week IOL. Will need cervical exam at 36 weeks to determine if she needs ripening. # Obesity, BMI 42.6 Referral to plastic surgery coordinator: declines Referral to anaesthesia: Completed 06/09/2025 Level 2 ultrasound MFM : ordered 03/19/25 Growth ultrasound: Already indicated for chronic hypertension Weekly testing starting at 34 weeks # Asthma Rare albuterol use up until recently, exposures to multiple allergens and using albuterol once today. Add nonsedating antihistamine, if not improving needs f/u with PCP for asthma management Imaging: - Level 2 US: Normal visualized anatomy. Suboptimal views of several cardiac views, 3VT, lungs, diaphragm and lips - plan repeat in 4 weeks w/ MFM. EFW 69%ile, AC 73%ile. MVP 4.7cm. FHR 158. Anterior placenta, no previa, 3V cord. Cx 44.8mm. - 05/12/2025: Cephalic, anterior placenta without previa, MVP 6.5 cm, EFW 35%, AC 48%, level to anatomy scan completed and normal. - 06/23/2025: Transverse with head on the maternal right, SDP 7.5 cm, EFW 1442 g (70%), BPD 67%, HC 87%, AC 93%, FL 4%. - 07/14/2025: Vertex, EFW 1808 g or 4 pounds (32%), BPD 74%, HC 35%, AC 43%, FL 14%, SDP 8.2 cm, AZAM 19.3 cm. Vaccinations: COVID: declines Flu: given 06/09/2025 Tdap: 07/14/2025 RSV: [] 32 week mental health: [] Last pap: 02/11/25 Meds Home Medications and Allergies Home Medications ?Medication ?Instructions ?Recorded ?Confirmed ?Type albuterol sulfate 90 mcg/actuation 2 puff inhalation Q 4-6H PRN 08/24/24 08/04/25 Rx aerosol inhaler shortness of breath or whe[place] ing #6.7 grams choline bitartrate 300 mg mg PO 10/13/24 08/04/25 Hist ory tablet,extended release docosahexaenoic acid 200 mg mg PO 10/13/24 08/04/25 Hi story capsule ( DHA) ondansetron 4 mg disintegrating 4 mg PO Q8H PRN nausea and 02/15/25 08/04/25 Rx tablet vomiting #30 tabs aspirin 81 mg chewable tablet 81 mg PO QDAY 04/16/25 1 10/05/24 History labetalol 100 mg tablet 100 mg PO BID #180 tabs 04/2608/04/25 Rx Allergies Allergy/AdvReac Type Severity Reaction Status Date / Time No Known Allergies Allergy Verified 08/04/25 14:35 OB - H&P: Exam Physical Exam: Vital signs: Temp Pulse Resp BP Pulse Ox 98.9 F 96 16 122/63 100 08/04/25 18:06 08/04/25 18:06 08/04/25 18:06 08/04/25 18:06 08/04/25 19:00 Narrative: Vital signs as noted above. General: Alert and oriented, no acute distress. Lying on her side, wrapped in a blanket reports feeling cold. Psych: Appropriate mood and affect Abdomen: Gravid. Otherwise soft, entirely nontender throughout. Back: No CVA tenderness Extremities: Trace edema. No calf erythema or tenderness. OB - Results Labs Labs: Short CBC 08/04/25 Range/Units 15:24 WBC 6.51 (4.50-11.00) K/uL Hgb 11.6 L (12.0-16.0) gm/dL Hct 35.0 (33.0-51.0) % Plt Count 183 (140-440) K/uL BMP 08/04/25 15:30 Sodium 130 L Potassium 4.0 Chloride 103 Carbon Dioxide 16 L BUN 6 Creatinine 0.6 Glucose 76 Calcium 8.5 Urine 08/04/25 Range/Units 15:14 Urine Color Yellow (Yellow) Urine Appearance Clear (Clear) Urine pH 6.0 (5.0-8.5) Ur Specific [place] 1.015 (1.000-1.030) Urine Protein Trace A (Negative) Urine Glucose (UA) Negative (Negative) OB - A/P Antepartum Assessment and Plan (1) Pyelonephritis affecting : Status: Acute (2) Chronic hypertension affecting : Status: Acute (3) Obesity affecting : Status: Acute (4) Fever: Status: Acute Plan Kylah is a 30yo at 34w6d GA admitted for maternal fever, tachycardia with suspicion for pyelonephritis. is complicated by chronic hypertension on medications, intermittently elevated LFTs, hepatic steatosis, obesity, asthma, ADHD, anxiety/depression. On arrival to triage, tachycardia was noted with a maternal fever of 38.9 deg C. Patient has very minimal localizing symptoms for infection, primarily she just notes fever/chills sensation but did have 1 episode of emesis this morning. Physical exam is overall reassuring, absolutely no uterine or abdominal tenderness to suggest chorioamnionitis. Evaluation included CBC with differential, BMP, LFTs were previously obtained, lactate, UA/UC, chest x-ray, blood cultures. Infectious evaluation is overall reassuring, with no leukocytosis noted. Lactate is normal at 1.0. Viral respiratory panel was negative. Chest x-ray negative. UA notable for leukocyte esterase, white blood cells and few bacteria. As such, my leading suspicion is for possible pyelonephritis. - Plan to admission for antepartum observation. Patient expressed understanding and is agreeable to plan. - Start ampicillin and gentamicin for suspected pyelo - Urine culture and blood cultures pending - Given I have no suspicion for chorioamnionitis, do feel delivery would be very unlikely at this time. As such, we discussed the risks/benefits of late steroids but have elected to hold this given concern for pyelonephritis with no signs of labor and low likelihood that we would proceed with delivery. - Plan repeat CBC and BMP in the morning - Plan TID NST. At present, patient has a category 1 tracing with baseline of 160 beats per minute, moderate variability, several qualifying 15 x 15 accelerations seen. Plan to repeat at about 0000 and 0700. - Recommend scheduled Tylenol 1000 mg Q6H
[2025-08-04] MEDS: LACTATED RINGERS 1000 ML 1,000 ML 125 ML IV (19:06)
[2025-08-04] MEDS: AMPICILLIN 2 GM in 0.9 % SODIUM CHLORIDE Mini-bag 100 ML IVPB (19:06)
[2025-08-04] MEDS: CALCIUM CARBONATE 500 MG CHEW PO (20:06)
[2025-08-04] MEDS: ONDANSETRON 2 MG/ML inj 4 MG IVP (20:24)
[2025-08-04] MEDS: GENTAMICIN 450 MG in 0.9 % SODIUM CHLORIDE 100 ml 100 ML 111.25 MG IVPB (20:24)
[2025-08-05] VITALS (24 sets, daily range): BP systolic 104–133; BP diastolic 55–90; PULSE 89–130; RESP 16–18; TEMP 36.4–39.3; O2SAT 89–100
[2025-08-05] MEDS: AMPICILLIN 2 GM in 0.9 % SODIUM CHLORIDE Mini-bag 100 ML IVPB ×4 (01:04→20:53)
[2025-08-05] MEDS: LACTATED RINGERS 1000 ML 1,000 ML 125 ML IV ×3 (01:10→21:30)
[2025-08-05] MEDS: ACETAMINOPHEN 500 MG TABLET 1000 MG PO ×4 (03:00→21:34)
[2025-08-05] MEDS: CALCIUM CARBONATE 500 MG CHEW PO (03:07)
[2025-08-05] MEDS: ONDANSETRON 2 MG/ML inj 4 MG IVP (03:07)
[2025-08-05] MEDS: OMEPRAZOLE 20 MG CAPSULE DR PO (03:56)
[2025-08-05 04:55] LABS: Hematocrit* 33.1 % (33.0-51.0); Hemoglobin* 11.0 gm/dL (12.0-16.0); Immature Granulocytes Abs Auto 0.01 K/uL (0.00-0.30); Immature Granulocytes Pct Auto 0.1 %; Lymphocytes Absolute Auto 1.68 K/uL (0.90-2.90); Mean Corpuscular HGB Conc 33 gm/dL (32-36); Mean Corpuscular Hemoglobin 28 pg (26-34); Mean Corpuscular Volume 84 fL (80-100); RDW Coefficient of Variation % 12.5 % (11.5-15.5); Red Blood Count* 3.93 m/uL (4.00-5.20); White Blood Count* 7.52 K/uL (4.50-11.00)
[2025-08-05 04:56] LABS: Slide Review Reflex No
[2025-08-05 05:08] LABS: Albumin* 2.8 g/dL (3.3-5.0); Chloride* 105 mmol/L (96-114); Potassium* 3.5 mmol/L (3.6-5.1); Sodium* 132 mmol/L (135-149)
[2025-08-05 05:11] LABS: Alanine Aminotransferase* 16 U/L (4-35); Alkaline Phosphatase* 80 U/L (40-150); Anion Gap 8 mEq/L (7-15); Aspartate Amino Transferase* 31 U/L (12-35); Bilirubin Total* 1.1 mg/dL (0.1-1.5); Blood Urea Nitrogen* 6 mg/dL (5-24); Calcium* 8.3 mg/dL (8.4-10.6); Carbon Dioxide* 19 mmol/L (20-32); Creatinine* 0.7 mg/dL (0.5-1.5); Estimated Glomerular Filt Rate 119 ml/min; Glucose* 84 mg/dL (60-115); Total Protein* 5.3 g/dL (6.0-8.3)
--- NOTE | 2025-08-05 09:51 | P.EN_ITS ---
Chart Event Note Time Seen by Provider: 09:00 Date Seen: 08/05/25 Chart Event Note: Evaluated patient on morning rounds. Kylah is a 30yo at 35w0d GA who was admitted yesterday for tachycardia and fevers. Yesterday, patient presented for routine OB visit, including preeclampsia labs and testing. During BPP, tachycardia was noted. She was febrile on presentation to L&D. is complicated by chronic hypertension on medications, intermittently elevated LFTs, hepatic steatosis, obesity, asthma, ADHD, anxiety/depression. Infectious workup performed yesterday included: 1. CBC that showed a normal white count at 6.5 with normal diff. Repeat WBC this AM 7.52 with normal diff. 2. Respiratory panel was negative 3. Chest x-ray without acute or significant findings 4. Lactate <2 5. TSH wnl 6. UA with few bacteria, 5-10 WBC, 2+ leuk esterase, negative nitrite. Cr wnl x 2 7. Urine culture and blood culture pending, but showed no growth after 24 hours 8. GBS+ She was started on amp/gen for suspected pyelonephritis. She has Tylenol 1000 mg scheduled Overnight, patient endorse she feels well and in her normal state of health. She had a couple episodes of emesis but report it's related to GERD and has been happening throughout her . Her vitals were significant for fever of 102.8F @ 2135 and 102.8F at 0302. This AM her temps have been: 99.2F @ 0508, 99.4F @ 0815, and 98.3 @ 0914. Patient reported some chills while she woke up yesterday but nothing that was severe or persistent enough to bring up and she presented to OB visit as scheduled. She has an intermittent cough that has been lingering from URI weeks ago. Patient denies chest pain, SOB, headache, ear pain, sore through, nasal drainage, neck stiffness, hematuria/dysuria, urinary frequency/urgency, back pain. Denies breast pain. Denies sick contacts, loose stools/diarrhea. Has not had stomach upset. No uterine or pelvic pain. Active movement. Denies Ctx, LOF, vaginal bleeding or abnormal vaginal discharge. Physical exam: General: No acute distress Psych: Alert and oriented x4, full affect HEENT: Normocephalic, atraumatic Neck: No cervical adenopathy, no thyromegaly. No neck stiffness, full ROM Heart: Regular rate and rhythm, no murmur rub or gallop Lungs: Clear to auscultation bilaterally Abdomen: Gravid. Soft, no tenderness, rebound, or guarding Back: No localizing tenderness down the spite. Flexion/extension wnl. negative CVAT Skin: No lesions or rashes Breasts: no nodules or masses, no nipple discharge, no axillary adenopathy Lower extremities: Trace bilateral lower extremity edema. No erythema. No cording or tenderness of the calf bilaterally. Negative Chip's sign bilaterally. Pelvic exam: Mons normal, clitoris normal, urethral meatus normal. Labia minora and majora normal in appearance bilaterally. Perineum and anus normal appearance. Vaginal introitus normal appearance. Vagina is normally estrogenized with normal amount of physiologic discharge. No pooling. No fluid expressed from cervix with Valsalva. Cervix pink and without lesion. Visually closed. Bimanual exam reveals uterus to be soft, nontender, mobile, of appropriate size and texture. No CMT. No fundal tenderness. Vaginitis panel and gonorrhea and chlamydia swab performed SVE: Closed/thick/high #Fever of unknown origin #Suspected pyelonephritis??? - Discussed with patient I am not sure that we have a specific cause for fevers. Clinically, she looks well with no localizing symptoms. I am reassured that currently she does not have chorioamnionitis as this would necessitate delivery. She might have a viral illness that will likely resolve on its own - Given that she seems to be improving, will keep her on current antibiotic for 24 hours afebrile. If she has another fever throughout the day, will reassess, broaden antibiotics, and consult ID # [id number] - Due to maternal fever. Intermittent periods of tachycardia to the 170- 180s coinciding with maternal fevers - NST this a.m. showed baseline of 150 bpm, moderate variability, +accel, - negative deceleration
[2025-08-05 11:22] LABS: Bacterial Vaginosis* Negative (Negative); Candida glab/krus NOT DETECTED (No Detected)
[2025-08-05 11:53] LABS: Chlamydia DNA Amplified* NOT DETECTED (No Detected); GC DNA Amplified* NOT DETECTED (No Detected)
[2025-08-05 17:06] LABS: Strep B DNA Probe POSITIVE (Negative)
--- NOTE | 2025-08-05 18:03 | CRLHL7_ITS ---
For Patients: As a result of the Century Cures Act, medical imaging exams and procedure reports are released immediately into your electronic medical record. You may view this report before your referring provider. If you have questions, please contact your health care provider. INDICATION: tachycardia. COMPARISON: OB ultrasound 08/04/2025. TECHNIQUE: Ultrasound OB pelvis transabdominal. Real time grayscale imaging of the fetus was performed without non-stress testing. FINDINGS: Sonographic imaging demonstrates a single living intrauterine gestation. The fetus has a regular cardiac rate of 145 beats per minute. The fetus has a cephalic orientation. The placenta lies anteriorly. Single deepest pocket measures 7.9 cm. breathing movements: 2/2 Gross body movements: 2/2 tone: 2/2 Amniotic fluid volume: 2/2 Total: 8/8 IMPRESSION: 1. Normal biophysical profile score 8 out of 8. 2. heart rate is within normal limits measuring 145 beats per minute. 3. Borderline polyhydramnios with deepest pocket measuring 7.9 cm. Dictated by Kenyatta Liriano MD @ 08/05/2025 7:24:30 PM (Electronically Signed)
[2025-08-05 19:04] LABS: Strep B Susceptibility Needed? No
[2025-08-05] MEDS: SODIUM CHLORIDE 0.9 % (FLUSH) 10 ML SYRINGE IVF (23:14)
[2025-08-06] VITALS (9 sets, daily range): BP systolic 107–131; BP diastolic 66–87; PULSE 84–112; RESP 16–18; TEMP 36.3–37.1; O2SAT 96–100
[2025-08-06] MEDS: AMPICILLIN 2 GM in 0.9 % SODIUM CHLORIDE Mini-bag 100 ML IVPB ×2 (02:58→08:53)
[2025-08-06] MEDS: ACETAMINOPHEN 500 MG TABLET 1000 MG PO ×2 (03:24→09:27)
[2025-08-06] MEDS: CALCIUM CARBONATE 500 MG CHEW PO (03:49)
[2025-08-06] MEDS: LACTATED RINGERS 1000 ML 1,000 ML 125 ML IV (07:47)
[2025-08-06] MEDS: ONDANSETRON 2 MG/ML inj 4 MG IVP (09:12)
[2025-08-06] MEDS: OMEPRAZOLE 20 MG CAPSULE DR PO (09:27)
--- NOTE | 2025-08-06 10:17 | P.IMPN_ITS ---
Assessment and Plan Assessment and plan (1) Fever: Status: Acute Assessment and Plan: without obvious source. Afebrile for greater than 24 hours. She has been treated with ampicillin and gentamicin throughout hospital stay. No obvious source of infection. Suspect viral process. Her only symptoms included nausea / vomiting, which may be related to reflux. Will continue omeprazole and Zofran. Otherwise, discontinue antibiotics. Given her new finding of mildly low platelets, will repeat CBC this afternoon. Anticipate discharge if this is normal, with follow up as scheduled next week in clinic. (2) Chronic hypertension affecting : Status: Acute Assessment and Plan: Continue labetalol as prescribed. Follow up next week. Subjective Date Seen: 08/06/25 Interval history: Kylah is a 30-year-old woman now at 35 weeks, 1 day gestation who is on hospital day 3 having been admitted on 08/04/2025 for tachycardia and fever of unknown origin. is complicated by chronic hypertension on medications, intermittently elevated LFTs, hepatic steatosis, obesity, asthma, ADHD, anxiety/depression. Infectious workup performed yesterday included: 1. CBC at admit that showed a normal white count at 6.5 with normal diff. Repeat WBC on AM of 08/05 was 7.52 with normal diff. 2. Respiratory panel was negative 3. Chest x-ray without acute or significant findings on 08/04 4. Lactate <2 5. TSH wnl 6. UA with few bacteria, 5-10 WBC, 2+ leuk esterase, negative nitrite. Cr wnl x 2 7. Urine culture showing only lactobacilli. Blood culture pending, but showed no growth after 24 hours 8. GBS+ 9. Negative for gonorrhea, chlamydia, trichomonas 10. Negative for flu and COVID. She was started on amp/gen for suspected pyelonephritis. ampicillin was begun She has Tylenol 1000 mg scheduled Last temperature elevation was 102.8 F at 0302 on 08/05. Initially, I evaluated her this AM after an episode of emesis. She was feeling chilled at that time. Her temperature was normal. She reported having had e mesis on occasion since her admission, and does note some reflux. She was given omeprazole. Upon reevaluation, she reported feeling better. She ate a full lunch. Her temperature is actually low at this time. She is ambulating and has showered. Exam Narrative: Exam Narrative: General: Pleasant, no acute distress Heart: Regular rate and rhythm, no murmur or gallop Lungs: Clear to auscultation bilaterally Abdomen: Soft, nontender, gravid Lower extremities: No edema or erythema Const: Vital Signs, click to edit/add: Vital Signs - 24 hr 08/05/25 12:02 08/05/25 14:09 08/05/25 14:10 Temperature 97.6 F Pulse Rate 93 94 Respiratory Rate 18 Blood Pressure 104/55 L 122/65 Pulse Oximetry 100 08/05/25 14:14 08/05/25 14:15 08/05/25 14:19 Temperature 98.3 F Pulse Rate Respiratory Rate 18 Blood Pressure Pulse Oximetry 100 100 08/05/25 14:30 08/05/25 15:36 08/05/25 15:39 Temperature 99.3 F Pulse Rate Respiratory Rate 16 Blood Pressure Pulse Oximetry 100 100 08/05/25 15:41 08/05/25 15:46 08/05/25 15:46 Temperature Pulse Rate 113 H Respiratory Rate Blood Pressure 133/90 H Pulse Oximetry 100 90 89 08/05/25 15:51 08/05/25 15:57 08/05/25 18:12 Temperature Pulse Rate 110 H 109 H Respiratory Rate Blood Pressure 131/78 106/72 Pulse Oximetry 100 98 08/05/25 18:14 08/05/25 20:55 08/05/25 23:19 Temperature 98.7 F 98.6 F 98.2 F Pulse Rate 89 98 Respiratory Rate 16 16 18 Blood Pressure 115/76 106/68 Pulse Oximetry 100 97 08/06/25 01:37 08/06/25 03:30 08/06/25 05:51 Temperature 97.5 F L 98.1 F 97.6 F Pulse Rate 97 112 H 86 Respiratory Rate 18 18 18 Blood Pressure 131/84 128/85 107/66 Pulse Oximetry 99 100 96 08/06/25 07:48 08/06/25 09:32 08/06/25 10:09 Temperature 97.7 F 97.9 F 98.7 F Pulse Rate Respiratory Rate 16 16 16 Blood Pressure 111/78 125/85 130/79 Pulse Oximetry 99 99 96 tracing: at 0340- 0500, tracing initially showed baseline 160, but decreased to 130 over this period of time. Isolated brief variable deceleration. Moderate variability, accelerations noted. At 11-12, Baseline 120, accelerations present, one apparent 20 sec deceleration to 100, moderate variability throughout, areas of discontinuous tracing. Labs Labs: Laboratory Results - last 24 hr 08/04/25 08/05/25 15:38 09:41 Vaginal Bacterial Vaginosis Negative Vaginal Christel species NOT DETECTED Vag C. glabrata/krusei NOT DETECTED Vag T. vaginalis NOT DETECTED C.trachomatis Ampl DNA NOT DETECTED N.gonorrhoeae Ampl DNA NOT DETECTED Group B Strep DNA POSITIVE A testing 08/05: BPP 8/8, cephalic, anterior placenta, SDP 7.9 yesterday. tracing reviewed from the hours of 3:23 a.m. to 5:00 a.m. this morning. Initially, baseline was 165. This decreased gradually to baseline of 130 over this period of extended monitoring. Variability was moderate throughout, showing accelerations, with 1 brief, isolated variable deceleration throughout this whole time. The patient was not febrile during this time.
[2025-08-06 12:46] LABS: Hematocrit* 31.6 % (33.0-51.0); Hemoglobin* 10.5 gm/dL (12.0-16.0); Immature Granulocytes Abs Auto 0.00 K/uL (0.00-0.30); Immature Granulocytes Pct Auto 0.0 %; Lymphocytes Absolute Auto 1.20 K/uL (0.90-2.90); Mean Corpuscular HGB Conc 33 gm/dL (32-36); Mean Corpuscular Hemoglobin 28 pg (26-34); Mean Corpuscular Volume 85 fL (80-100); RDW Coefficient of Variation % 12.5 % (11.5-15.5); Red Blood Count* 3.73 m/uL (4.00-5.20); White Blood Count* 4.97 K/uL (4.50-11.00)
[2025-08-06 12:47] LABS: Slide Review Reflex No
[2025-08-06 13:01] LABS: Albumin* 2.5 g/dL (3.3-5.0); Chloride* 106 mmol/L (96-114); Potassium* 3.5 mmol/L (3.6-5.1); Sodium* 133 mmol/L (135-149)
[2025-08-06 13:04] LABS: Alanine Aminotransferase* 13 U/L (4-35); Alkaline Phosphatase* 74 U/L (40-150); Anion Gap 7 mEq/L (7-15); Aspartate Amino Transferase* 25 U/L (12-35); Bilirubin Total* 0.6 mg/dL (0.1-1.5); Blood Urea Nitrogen* 4 mg/dL (5-24); Calcium* 8.2 mg/dL (8.4-10.6); Carbon Dioxide* 20 mmol/L (20-32); Creatinine* 0.6 mg/dL (0.5-1.5); Estimated Glomerular Filt Rate 124 ml/min; Glucose* 81 mg/dL (60-115); Total Protein* 4.9 g/dL (6.0-8.3)
[2025-08-06 15:23] LABS: Hematocrit* 32.8 % (33.0-51.0); Hemoglobin* 10.8 gm/dL (12.0-16.0); Immature Granulocytes Abs Auto 0.01 K/uL (0.00-0.30); Immature Granulocytes Pct Auto 0.2 %; Lymphocytes Absolute Auto 1.28 K/uL (0.90-2.90); Mean Corpuscular HGB Conc 33 gm/dL (32-36); Mean Corpuscular Hemoglobin 28 pg (26-34); Mean Corpuscular Volume 86 fL (80-100); RDW Coefficient of Variation % 12.5 % (11.5-15.5); Red Blood Count* 3.83 m/uL (4.00-5.20); White Blood Count* 5.41 K/uL (4.50-11.00)
[2025-08-06 15:26] LABS: Slide Review Reflex No
--- NOTE | 2025-08-06 16:28 | PC.OBNST ---
NST Note NST Note Start: 08/04/25 14:24 Freq: ONCE Status: Active Protocol: Document 08/06/25 16:24 [facility] (Rec: 08/06/25 16:27 [facility] [id number]) NST Note 5 Para (# of births) 3 EDC 09/09/25 Gestational Age In 35 Weeks & 1 Days Weeks & Days High Risk Factors High Blood Pressure - Preexisting,History of Labor/Delivery Patient Presented Nausea and vomiting,Other with Complaint(s) of Other Complaints R/O Sepsis and Pyelonephritis Reactive Yes Appropriate for Yes Gestational Age LAUREANO Helms Date 08/06/25 Reactive Yes Appropriate for Yes Gestational Age LAUREANO Wilson MD Date 08/06/25 OB NST charge Yes Complete NST Note Yes via Write Note The provider's electronic signature indicates the NST is reactive/appropriate for gestational age. *Note to provider: If an addendum is required, open the patient's chart and click on the note under the Nurse/Allied Health tab.
--- NOTE | 2025-08-06 19:45 | P.DS_ITS ---
DS: Providers Provider Date Seen: 08/06/25 Date of admission: 08/04/25 21:12 Primary care physician: Sofia Grimes MD Admitting Clinician: Venita Harris MD Attending Physician on discharge: Catie Wilson MD Date of Discharge: 08/06/25 DS: Diagnosis Discharge Diagnosis (1) Fever: Status: Acute Problem details: fever without a source in (2) Chronic hypertension affecting : Status: Acute Discharge Plan Discharge Disposition: Home, Self-Care Date of Admission: 08/04/25 21:12 Attending Provider on Discharge: Catie Wilson Primary Care Provider: Sofia Grimes Condition: Stable Anticipated Discharge Date/Time: 08/06/25 17:48 Discharge Medications: Continued DHA 200 mg capsule 200 mg PO DAILY choline bitartrate 300 mg tablet extended release 300 mg PO DAILY aspirin 81 mg tablet,chewable 81 mg PO QDAY albuterol sulfate 90 mcg/actuation HFA aerosol inhaler 2 puff inhalation Q4-6H PRN (Reason: shortness of breath or wheezing) Qty: 6.7 0RF ondansetron 4 mg tablet,disintegrating 4 mg PO Q8H PRN (Reason: nausea and vomiting) Qty: 30 0RF labetalol 100 mg tablet 100 mg PO BID Qty: 180 1RF Discharge Orders: Discharge Order (Routine); Ordered 08/06/25 Ordered By: Catie Wilson Consulting provider completed their portion of the discharge: Yes Patient Education: OB Undelivered at 35 weeks IUP or more Additional Instructions: Discharge home to self-care. Activity Level: Activity as Tolerated Discharge Diet: Regular Follow Up Appointments: Sofia Grimes MD [Primary Care Provider, Family Practice] [facility] [Provider Group] Forms: [facility] Info Instructions AMA Form Signed: No Discharge Comments: Follow up in clinic as scheduled next week. Hospital Course Course Hospital Course: Kylah was admitted at 34 weeks, 6 days gestation on 08/04/25 for tachycardia incidentally noted on BPP. She was subsequently found to be febrile. She had no definite localizing symptoms; she did develop nausea and intermittent vomiting during her hospitalization. She was treated empirically with ampicillin and gentamicin. She ultimately defervesced and was discharged on hospital day #3 after more than 24 hours without fever. Pertinent testing included: Infectious workup performed yesterday included: 1. CBC at admit that showed a normal white count at 6.5 with normal diff. Repeat WBC on AM of 08/05 was 7.52 with normal diff. 2. Respiratory panel was negative 3. Chest x-ray without acute or significant findings on 08/04 4. Lactate <2 5. TSH wnl 6. UA with few bacteria, 5-10 WBC, 2+ leuk esterase, negative nitrite. Cr wnl x 2 7. Urine culture showing only lactobacilli. Blood culture pending, but showed no growth after 24 hours 8. GBS+ 9. Negative for gonorrhea, chlamydia, trichomonas 10. Negative for flu and COVID. Labs Labs: Laboratory Tests 08/06/25 08/06/25 08/05/25 Range/Units 15:16 12:30 09:41 WBC 5.41 4.97 (4.50-11.00) K/uL RBC 3.83 L 3.73 L (4.00-5.20) m/uL Hgb 10.8 L 10.5 L (12.0-16.0) gm/dL Hct 32.8 L 31.6 L (33.0-51.0) % MCV 86 85 (80-100) fL MCH 28 28 (26-34) pg MCHC 33 33 (32-36) gm/dL RDW Coeff of Enmanuel 12.5 12.5 (11.5-15.5) % Plt Count 132 L 122 L (140-440) K/uL Neut % (Auto) 69.0 67.7 (42.0-72.0) % Lymph % (Auto) 23.7 24.1 (20-44) % Greer % (Auto) 5.4 7.0 (0.0-11.0) % Eos % (Auto) 1.5 1.0 (0.0-7.0) % Baso % (Auto) 0.2 0.2 (0.0-3.0) % Neut # (Auto) 3.74 3.36 (1.7-7.0) K/uL Lymph # (Auto) 1.28 1.20 (0.90-2.90) K/uL Greer # (Auto) 0.30 0.30 (0.00-0.90) K/UL Eos # (Auto) 0.08 0.05 (0.00-0.50) K/uL Baso # (Auto) 0.01 0.01 (0.00-0.30) K/uL Abs Immat Gran (auto) 0.01 0.00 (0.00-0.30) K/uL Imm/Tot Granulo (auto) 0.2 0.0 % Sodium 133 L (135-149) mmol/L Potassium 3.5 L (3.6-5.1) mmol/L Chloride 106 (96-114) mmol/L Carbon Dioxide 20 (20-32) mmol/L Anion Gap 7 (7-15) mEq/L BUN 4 L (5-24) mg/dL Creatinine 0.6 (0.5-1.5) mg/dL Estimated Creat Clear 198.31 Estimated GFR 124 ml/min Glucose 81 (60-115) mg/dL Lactate (0.5-1.9) mmol/L Calcium 8.2 L (8.4-10.6) mg/dL Total Bilirubin 0.6 (0.1-1.5) mg/dL AST 25 (12-35) U/L ALT 13 (4-35) U/L Alkaline Phosphatase 74 (40-150) U/L Total Protein 4.9 L (6.0-8.3) g/dL Albumin 2.5 L (3.3-5.0) g/dL TSH (0.270-4.200) uIU/mL Urine Color (Yellow) Urine Appearance (Clear) Urine pH (5.0-8.5) Ur Specific Harrison (1.000-1.030) Urine Protein (Negative) Urine Glucose (UA) (Negative) Urine Ketones (Negative) Urine Blood (Negative) Urine Nitrite (Negative) Urine Bilirubin (Negative) Urine Urobilinogen (0.2-1.0) Ur Leukocyte Esterase (Negative) Urine RBC (0-2) Urine WBC (0-5) Ur Squamous Epith Cells (None-Few) Urine Bacteria (None) Vaginal Bacterial Vaginosis Negative (Negative) Vaginal Christel species NOT DETECTED (No Detected) Vag C. glabrata/krusei NOT DETECTED (No Detected) Vag T. vaginalis NOT DETECTED (No Detected) C.trachomatis Ampl DNA NOT DETECTED (No Detected) SARS-CoV-2 (PCR) (Negative) Influenza Type A (PCR) (Negative) Influenza Type B (PCR) (Negative) N.gonorrhoeae Ampl DNA NOT DETECTED (No Detected) RSV (PCR) (Negative) Group B Strep DNA (Negative) 08/05/25 08/04/25 08/04/25 Range/Units 04:47 15:38 15:30 WBC 7.52 (4.50-11.00) K/uL RBC 3.93 L (4.00-5.20) m/uL Hgb 11.0 L (12.0-16.0) gm/dL Hct 33.1 (33.0-51.0) % MCV 84 (80-100) fL MCH 28 (26-34) pg MCHC 33 (32-36) gm/dL RDW Coeff of Enmanuel 12.5 (11.5-15.5) % Plt Count 174 (140-440) K/uL Neut % (Auto) 70.6 (42.0-72.0) % Lymph % (Auto) 22.3 (20-44) % Greer % (Auto) 6.4 (0.0-11.0) % Eos % (Auto) 0.3 (0.0-7.0) % Baso % (Auto) 0.3 (0.0-3.0) % Neut # (Auto) 5.31 (1.7-7.0) K/uL Lymph # (Auto) 1.68 (0.90-2.90) K/uL Greer # (Auto) 0.50 (0.00-0.90) K/UL Eos # (Auto) 0.02 (0.00-0.50) K/uL Baso # (Auto) 0.02 (0.00-0.30) K/uL Abs Immat Gran (auto) 0.01 (0.00-0.30) K/uL Imm/Tot Granulo (auto) 0.1 % Sodium 132 L 130 L (135-149) mmol/L Potassium 3.5 L 4.0 (3.6-5.1) mmol/L Chloride 105 103 (96-114) mmol/L Carbon Dioxide 19 L 16 L (20-32) mmol/L Anion Gap 8 11 (7-15) mEq/L BUN 6 6 (5-24) mg/dL Creatinine 0.7 0.6 (0.5-1.5) mg/dL Estimated Creat Clear Estimated GFR 119 124 ml/min Glucose 84 76 (60-115) mg/dL Lactate (0.5-1.9) mmol/L Calcium 8.3 L 8.5 (8.4-10.6) mg/dL Total Bilirubin 1.1 (0.1-1.5) mg/dL AST 31 (12-35) U/L ALT 16 (4-35) U/L Alkaline Phosphatase 80 (40-150) U/L Total Protein 5.3 L (6.0-8.3) g/dL Albumin 2.8 L (3.3-5.0) g/dL TSH 0.648 (0.270-4.200) uIU/mL Urine Color (Yellow) Urine Appearance (Clear) Urine pH (5.0-8.5) Ur Specific Harrison (1.000-1.030) Urine Protein (Negative) Urine Glucose (UA) (Negative) Urine Ketones (Negative) Urine Blood (Negative) Urine Nitrite (Negative) Urine Bilirubin (Negative) Urine Urobilinogen (0.2-1.0) Ur Leukocyte Esterase (Negative) Urine RBC (0-2) Urine WBC (0-5) Ur Squamous Epith Cells (None-Few) Urine Bacteria (None) Vaginal Bacterial Vaginosis (Negative) Vaginal Christel species (No Detected) Vag C. glabrata/krusei (No Detected) Vag T. vaginalis (No Detected) C.trachomatis Ampl DNA (No Detected) SARS-CoV-2 (PCR) Negative SARS-CoV-2 (Negative) Influenza Type A (PCR) Negative PCR FLU A (Negative) Influenza Type B (PCR) Negative PCR FLU B (Negative) N.gonorrhoeae Ampl DNA (No Detected) RSV (PCR) Negative PCR RSV (Negative) Group B Strep DNA POSITIVE A (Negative) 08/04/25 08/04/25 Range/Units 15:24 15:14 WBC 6.51 (4.50-11.00) K/uL RBC 4.18 (4.00-5.20) m/uL Hgb 11.6 L (12.0-16.0) gm/dL Hct 35.0 (33.0-51.0) % MCV 84 (80-100) fL MCH 28 (26-34) pg MCHC 33 (32-36) gm/dL RDW Coeff of Enmanuel 12.3 (11.5-15.5) % Plt Count 183 (140-440) K/uL Neut % (Auto) 67.9 (42.0-72.0) % Lymph % (Auto) 25.8 (20-44) % Greer % (Auto) 5.4 (0.0-11.0) % Eos % (Auto) 0.5 (0.0-7.0) % Baso % (Auto) 0.2 (0.0-3.0) % Neut # (Auto) 4.43 (1.7-7.0) K/uL Lymph # (Auto) 1.68 (0.90-2.90) K/uL Greer # (Auto) 0.40 (0.00-0.90) K/UL Eos # (Auto) 0.03 (0.00-0.50) K/uL Baso # (Auto) 0.01 (0.00-0.30) K/uL Abs Immat Gran (auto) 0.01 (0.00-0.30) K/uL Imm/Tot Granulo (auto) 0.2 % Sodium (135-149) mmol/L Potassium (3.6-5.1) mmol/L Chloride (96-114) mmol/L Carbon Dioxide (20-32) mmol/L Anion Gap (7-15) mEq/L BUN (5-24) mg/dL Creatinine (0.5-1.5) mg/dL Estimated Creat Clear Estimated GFR ml/min Glucose (60-115) mg/dL Lactate 1.0 (0.5-1.9) mmol/L Calcium (8.4-10.6) mg/dL Total Bilirubin (0.1-1.5) mg/dL AST (12-35) U/L ALT (4-35) U/L Alkaline Phosphatase (40-150) U/L Total Protein (6.0-8.3) g/dL Albumin (3.3-5.0) g/dL TSH (0.270-4.200) uIU/mL Urine Color Yellow (Yellow) Urine Appearance Clear (Clear) Urine pH 6.0 (5.0-8.5) Ur Specific Harrison 1.015 (1.000-1.030) Urine Protein Trace A (Negative) Urine Glucose (UA) Negative (Negative) Urine Ketones 2+ A (Negative) Urine Blood Negative (Negative) Urine Nitrite Negative (Negative) Urine Bilirubin Negative (Negative) Urine Urobilinogen 0.2 (0.2-1.0) Ur Leukocyte Esterase 2+ A (Negative) Urine RBC 2-5 A (0-2) Urine WBC 5-10 A (0-5) Ur Squamous Epith Cells Few (None-Few) Urine Bacteria Few A (None) Vaginal Bacterial Vaginosis (Negative) Vaginal Christel species (No Detected) Vag C. glabrata/krusei (No Detected) Vag T. vaginalis (No Detected) C.trachomatis Ampl DNA (No Detected) SARS-CoV-2 (PCR) (Negative) Influenza Type A (PCR) (Negative) Influenza Type B (PCR) (Negative) N.gonorrhoeae Ampl DNA (No Detected) RSV (PCR) (Negative) Group B Strep DNA (Negative) OB Problem List Additional Plan (1) Fever: Problem details: fever without a source in Status: Acute (2) Chronic hypertension affecting : Status: Acute DS: Summary Vital Signs Vital Signs: Vital Signs Temp Pulse Resp BP Pulse Ox 08/06/25 16:10 98.1 F 16 116/78 98 08/06/25 14:06 97.5 F L 18 124/87 99 08/06/25 12:19 97.4 F L 16 109/75 96 08/06/25 10:09 98.7 F 16 130/79 96 08/06/25 09:32 97.9 F 16 125/85 99 08/06/25 07:48 97.7 F 16 111/78 99 08/06/25 05:51 97.6 F 86 18 107/66 96 08/06/25 03:30 98.1 F 112 H 18 128/85 100 08/06/25 01:37 97.5 F L 97 18 131/84 99 08/05/25 23:19 98.2 F 98 18 106/68 97 08/05/25 20:55 98.6 F 89 16 115/76 100 Discharge Examination Physical Examination findings: normal - see inpatient note Procedures Procedures Performed: none
== END 2025-08-06 17:11 | disposition home or self-care (01) ==
LOC: OB OUT 21:13 → OB 21:13
PROVIDERS: Obstetrics & Gynecology; Admitting Provider Obstetrics & Gynecology; PCP Family Medicine; Visit Provider Obstetrics & Gynecology
DX: O36.8330 Maternal care for abnormalities of the fetal heart rate or rhythm, third trimester, not applicable or unspecified (principal); O26.893 Other specified pregnancy related conditions, third trimester; R50.9 Fever, unspecified; O10.913 Unspecified pre-existing hypertension complicating pregnancy, third trimester; O99.820 Streptococcus B carrier state complicating pregnancy; K21.9 Gastro-esophageal reflux disease without esophagitis; O99.213 Obesity complicating pregnancy, third trimester; E66.01 Morbid (severe) obesity due to excess calories; Z3A.34 34 weeks gestation of pregnancy; Z39.1 Encounter for care and examination of lactating mother
CPT/HCPCS: 36415; 59025; 71045; 76819; 80048; 80053; 81001; 81003; 81513; 83605; 84443; 85025; 87040; 87081; 87086; 87481; 87491; 87591; 87631; 87653; 87661; 96361; 96365; 96366; 96367; 96375; 96376; A9270; G0378; J0290; J1580; J2405; J7120

== ENCOUNTER 2025-08-08 13:41 | Outpatient (CLI) | payer OTHER, SELFPAY ==
[2025-08-08 14:05] VITALS: BP 139/84; PULSE 96
--- NOTE | 2025-08-08 14:33 | CRLHL7_ITS ---
For Patients: As a result of the Century Cures Act, medical imaging exams and procedure reports are released immediately into your electronic medical record. You may view this report before your referring provider. If you have questions, please contact your health care provider. OB ULTRASOUND BIOPHYSICAL PROFILE LMP: 12/03/2024. FATMATA by LMP: 09/09/2025. GA: 35 w, 3 d. Single. Comparison: 08/05/2025, 08/04/2025, 07/30/2025. INDICATION: Decreased Movement TECHNIQUE: Real time beasley scale imaging of the fetus was performed. Transabdominal imaging performed. CERVIX: Not Visualized. POSITIONING: Vertex. AMNIOTIC FLUID: 6.8 cm. AZAM, SDP (N: greater than 2 x 1 cm) BIOPHYSICAL PROFILE: Gross body movements: 2. tone: 2. Respiratory activity: 2. Amniotic fluid: 2. SDP (N: greater than 2 x 1 cm). Total score: 8. PLACENTA: Technique: Transabdominal. PLACENTA POSITION: Anterior. DOPPLER: heart rate: 137 bpm. IMPRESSION: Normal biophysical profile 04/09. HORACIO HOLLEY M.D. Diagnostic Radiologist [email or web address] DW/Dictated by: Horacio Holley MD @ 08/08/2025 3:43:00 PM (Electronically Signed)
--- NOTE | 2025-08-08 15:33 | PC.OBNST ---
NST Note NST Note Start: 08/08/25 13:46 Freq: ONCE Status: Active Protocol: Document 08/08/25 13:46 [facility] (Rec: 08/08/25 15:19 [facility] No Response) NST Note 5 Para (# of births) 3 EDC 09/09/25 Gestational Age In 35 Weeks & 3 Days Weeks & Days High Risk Factors High Blood Pressure - Preexisting Patient Presented Decreased movement with Complaint(s) of Reactive Yes Appropriate for Yes Gestational Age RN Raheel RN Date 08/08/25 Reactive Yes Appropriate for Yes Gestational Age RN Chidi RN Date 08/08/25 OB NST charge Yes Complete NST Note Yes via Write Note The provider's electronic signature indicates the NST is reactive/appropriate for gestational age. *Note to provider: If an addendum is required, open the patient's chart and click on the note under the Nurse/Allied Health tab.
== END 2025-08-08 15:32 | disposition home or self-care (01) ==
LOC: OB OUT 13:41 → OB 13:49
PROVIDERS: PCP Family Medicine; Visit Provider Obstetrics & Gynecology
DX: O36.8130 Decreased fetal movements, third trimester, not applicable or unspecified (principal); O10.913 Unspecified pre-existing hypertension complicating pregnancy, third trimester; Z3A.35 35 weeks gestation of pregnancy
CPT/HCPCS: 59025; 76819; G0463

== ENCOUNTER 2025-08-11 13:47 | Outpatient (CLI) | payer OTHER, SELFPAY | END 2025-08-11 13:48 | disposition home or self-care (01) | LOC: NFLDREF 08-17 23:47 | PROVIDERS: PCP Family Medicine; Referring Provider Family Medicine; Visit Provider Obstetrics & Gynecology | DX: O10.913 Unspecified pre-existing hypertension complicating pregnancy, third trimester (principal); Z3A.35 35 weeks gestation of pregnancy | CPT/HCPCS: 82565; 82570; 84156; 84450; 84460 ==

== ENCOUNTER 2025-08-11 13:56 | Outpatient (CLI) | payer OTHER, SELFPAY ==
--- NOTE | 2025-08-11 14:00 | CRLHL7_ITS ---
For Patients: As a result of the Century Cures Act, medical imaging exams and procedure reports are released immediately into your electronic medical record. You may view this report before your referring provider. If you have questions, please contact your health care provider. OB ULTRASOUND BIOPHYSICAL PROFILE CLINICAL HISTORY: Unspecified pre-existing HTN. TECHNIQUE: Real time beasley scale imaging of the fetus was performed. Transabdominal imaging performed. COMPARISON: 08/08/2025, 08/05/2025, 08/04/2025, 07/30/2025. FINDINGS: FATMATA by LMP/US: 09/09/2025. GA: 35 weeks 6 days. Gestation: Single. Cervix: Not visualized. Positioning: Vertex. Amniotic Fluid: 6.8 cm SDP. BIOHYSICAL PROFILE Gross Body Movements: 2 Tone: 2 Respiratory Activity: 0 Amniotic Fluid SDP: 2 Total Score: 6/8 Placenta: Technique: TA: Placenta Position: Anterior. Dopplers: Heart Rate: 144 bpm. BIOMETRY BPD: 8.9 cm, 36 weeks 1 day. 66% HC: 33.2 cm, 37 weeks 6 days. 70% AC: 32.5 cm, 36 weeks 3 days. 75% FL: 6.4 cm, 33 weeks 0 days. <3% FL/AC Ratio: 19.66% HC/AC Ratio: 1.02. EFW: 2739 grams. 6 lb 1 oz. Age by this US: 35 weeks 6 days. FATMATA by this US: 09/09/2025. Percentile by FATMATA: 45% IMPRESSION: 1. Sonographic gestational age 35 weeks 6 days and sonographic due date 09/09/2025. Good correlation with dates. Normal interval growth. 2. Estimated weight 45th percentile. Abdominal circumference 75th percentile. 3. Femur length less than 3rd percentile. Decreased FL/AC ratio. 4. Biophysical profile 02/07 with absent respiratory activity. Horacio Perez M.D. Diagnostic Radiologist [email or web address] Transcribed: 4:23 pm DW/Dictated by: Horacio Perez MD @ 08/11/2025 3:48:00 PM (Electronically Signed)
== END 2025-08-11 13:57 | disposition home or self-care (01) ==
LOC: US 13:56
PROVIDERS: PCP Family Medicine; Visit Provider Obstetrics & Gynecology
DX: O10.913 Unspecified pre-existing hypertension complicating pregnancy, third trimester (principal); Z3A.35 35 weeks gestation of pregnancy
CPT/HCPCS: 76816; 76819

== ENCOUNTER 2025-08-12 10:20 | Outpatient (CLI) | payer OTHER, SELFPAY | END 2025-08-12 10:21 | disposition home or self-care (01) | LOC: NFLDREF 08-18 09:27 | PROVIDERS: PCP Family Medicine; Referring Provider Family Medicine; Visit Provider Obstetrics & Gynecology | DX: R74.8 Abnormal levels of other serum enzymes (principal) | CPT/HCPCS: 82565; 82570; 84156; 84450; 84460; 84520 ==

== ENCOUNTER 2025-08-18 13:43 | Outpatient (CLI) | payer OTHER, SELFPAY ==
--- NOTE | 2025-08-18 14:00 | CRLHL7_ITS ---
For Patients: As a result of the Cures Act, medical imaging exams and procedure reports are released immediately into your electronic medical record. You may view this report before your referring provider. If you have questions, please contact your health care provider. OBSTETRICAL ULTRASOUND ??? BIOPHYSICAL PROFILE INDICATION: CHTN. CLINICAL HISTORY: FATMATA by LMP: 09/09/2025 Gestational Age: 36 weeks 6 days COMPARISON: 08/11/25, 08/08/25, 08/05/25. TECHNIQUE: Real-time beasley-scale transabdominal imaging of the fetus was performed. FINDINGS: Fetus: Single Cervix: Not visualized positioning: Vertex Amniotic Fluid: 7.9 cm SDP BIOPHYSICAL PROFILE: Gross body movements: 2 tone: 2 Respiratory activity: 2 Amniotic fluid SDP: 2 Total score: 8 Placenta technique: Transabdominal Placenta position: Anterior heart rate: 123 bpm IMPRESSION: Normal biophysical profile score of 8/8. HORACIO HOLLEY M.D. Diagnostic Radiologist [email or web address] Transcribed: 4:[address]/Dictated by: Horacio Holley MD @ 08/18/2025 2:24:00 PM (Electronically Signed)
== END 2025-08-18 13:44 | disposition home or self-care (01) ==
LOC: US 13:43
PROVIDERS: PCP Family Medicine; Visit Provider Obstetrics & Gynecology
DX: O09.93 Supervision of high risk pregnancy, unspecified, third trimester (principal); Z3A.36 36 weeks gestation of pregnancy
CPT/HCPCS: 76819

== ENCOUNTER 2025-08-18 13:49 | Outpatient (CLI) | payer OTHER, SELFPAY | END 2025-08-18 13:50 | disposition home or self-care (01) | LOC: NFLDREF 08-23 10:34 | PROVIDERS: PCP Family Medicine; Referring Provider Family Medicine; Visit Provider Obstetrics & Gynecology | DX: O10.913 Unspecified pre-existing hypertension complicating pregnancy, third trimester (principal) | CPT/HCPCS: 82565; 82570; 84156; 84450; 84460 ==

== ENCOUNTER 2025-08-19 19:00 | Inpatient (IN) | payer OTHER, SELFPAY ==
[2025-08-19 19:28] VITALS: PULSE 95; O2SAT 97
[2025-08-19 19:29] VITALS: BP 114/82; PULSE 94
[2025-08-19 19:30] VITALS: BMI 39.9
[2025-08-19 20:00] VITALS: TEMP 37.1
[2025-08-19] MEDS: LABETALOL HCL 100 MG TABLET PO (20:00)
[2025-08-19 20:32] LABS: Hematocrit* 38.8 % (33.0-51.0); Hemoglobin* 12.4 gm/dL (12.0-16.0); Immature Granulocytes Abs Auto 0.01 K/uL (0.00-0.30); Immature Granulocytes Pct Auto 0.1 %; Lymphocytes Absolute Auto 1.83 K/uL (0.90-2.90); Mean Corpuscular HGB Conc 32 gm/dL (32-36); Mean Corpuscular Hemoglobin 28 pg (26-34); Mean Corpuscular Volume 87 fL (80-100); RDW Coefficient of Variation % 12.6 % (11.5-15.5); Red Blood Count* 4.44 m/uL (4.00-5.20); White Blood Count* 7.47 K/uL (4.50-11.00)
[2025-08-19 20:33] LABS: Slide Review Reflex No
[2025-08-19 20:35] VITALS: BP 132/85; PULSE 88
[2025-08-19 20:49] LABS: Alanine Aminotransferase* 26 U/L (4-35); Aspartate Amino Transferase* 33 U/L (12-35); Blood Urea Nitrogen* 7 mg/dL (5-24); Creatinine* 0.6 mg/dL (0.5-1.5); Est. Creatinine Clearance* 193.89; Estimated Glomerular Filt Rate 124 ml/min
--- NOTE | 2025-08-19 22:02 | P.LDBA_ITS ---
Subjective History of Present Illness Date Seen: 08/19/25 Narrative: Patient is being admitted to Labor and Delivery for scheduled IOL (cervical ripening). She is a 30 year old at weeks gestation. Her full history and physical was dictated by Dr. PADGETT on 08/11/25. Please see this for details. Active movement. Denies LOF, vaginal bleeding or abnormal vaginal discharge. Minimal contractions Specific Issues/Plans Partner: Timmy H&P: [place] 08/11/25 *Needs Cx check on 08/18 for IOL planning, call center to add on ripening if needed* # History of gestational hypertension x2, now chronic hypertension Labetalol 100 mg b.i.d. Baseline preeclampsia labs: AST 59 and ALT 48 mildly elevated, repeat 03/19/25: AST 49H/ALT48H Right upper quadrant ultrasound: mild hepatic steatosis pr/cr ratio:0.02 24 hour urine 03/19/25: 32.5 (low urine volume) Aspirin 81 mg Growth ultrasound every 4 weeks starting at 28 weeks Weekly BPP starting at 32 weeks Weekly pre E labs starting at 32 weeks - testing scheduled Delivery recommended 37- 39 6/7 weeks: IOL request form submitted on 07/14 for 37-week IOL. Will need cervical exam at 36 weeks to determine if she needs ripening. # Admitted for fever without a source on 08/04 - 08/06. Treated empirically with ampicillin / gentamicin. Work up entirely negative. Discharged off all antibiotics on 08/06. 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 Add nonsedating antihistamine, if not improving needs f/u with PCP for asthma management Imaging: - Level 2 US: Normal visualized anatomy. Suboptimal views of several cardiac views, 3VT, lungs, diaphragm and lips - plan repeat in 4 weeks w/ MFM. EFW 69%ile, AC 73%ile. MVP 4.7cm. FHR 158. Anterior placenta, no previa, 3V cord. Cx 44.8mm. - 05/12/2025: Cephalic, anterior placenta without previa, MVP 6.5 cm, EFW 35%, AC 48%, level to anatomy scan completed and normal. - 06/23/2025: Transverse with head on the maternal right, SDP 7.5 cm, EFW 1442 g (70%), BPD 67%, HC 87%, AC 93%, FL 4%. - 07/14/2025: Vertex, EFW 1808 g or 4 pounds (32%), BPD 74%, HC 35%, AC 43%, FL 14%, SDP 8.2 cm, AZAM 19.3 cm. -08/11/25: Vertex presentation, single deepest pocket of amniotic fluid: 6.8 cm, EFW: 45 percentile, abdominal circumference: 75 percentile. Vaccinations: COVID: declines Flu: given 06/09/2025 Tdap: 07/14/2025 RSV: 07/30/2025 32 week mental health: [] Last pap: 02/11/25 OB - Problem Based A/P Additional Plan (1) , high-risk: Status: Acute (2) Chronic hypertension affecting : Status: Acute (3) Obesity affecting : Status: Acute Plan - Patient declined cook cath and requesting misoprostol instead - No contraindication. Will do 25 mcg misoprostol per protocol - Patient will eventually want epidural NST: 120 bpm, moderate variability, +accel, - decel [place]: Quiescent OB Exam Physical Exam Vital signs: Pulse BP Pulse Ox 88 132/85 97 08/19/25 20:35 08/19/25 20:35 08/19/25 19:28 Narrative: Physical exam: General: No acute distress Psych: Alert and oriented x3, full affect HEENT: Normocephalic, atraumatic Lungs: Unlabored breathing Neuro: No focal deficit. Mentating appropriately Pelvic exam: 10/01/3, moderate soft, posterior
[2025-08-19 22:23] VITALS: BP 114/63; PULSE 88; TEMP 37.2
[2025-08-20] VITALS (83 sets, daily range): BP systolic 103–169; BP diastolic 57–106; PULSE 67–114; RESP 16–20; TEMP 36.4–36.7; O2SAT 75–100
[2025-08-20] MEDS: ONDANSETRON 2 MG/ML inj 4 MG IV (02:25)
[2025-08-20] MEDS: AMPICILLIN 2 GM in 0.9 % SODIUM CHLORIDE Mini-bag 100 ML IVPB (06:55)
[2025-08-20] MEDS: LACTATED RINGERS 1000 ML 1,000 ML 1200 ML IV (06:58)
[2025-08-20] MEDS: ROPIVACAINE 0.2% 100 ml 100 ML 12 MG EPIDURAL (07:47)
--- NOTE | 2025-08-20 07:50 | PM.OBPNL ---
Subjective Time Seen by Provider: 07:50 Date Seen: 08/20/25 Narrative: Kylah is a 30yo at 37w1d GA admitted for IOL in the setting of chronic HTN on meds. is otherwise complicated by obesity, asthma, and you provide unknown origin in early August. Induction was started with Cytotec overnight, where she received 3 doses. Since that time, she is noting regular and painful contractions with pressure. She received her 1st dose of ampicillin at 0645 for GBS positivity. Requested epidural that time as well. Patient is reporting constant pressure and requested a check. Objective Exam: General: Alert and oriented. In distress with contractions, improving as her epidural medications are sending in. Psych: Appropriate mood and affect Abdomen: Gravid Cervix: Bleeding noted on pad, bedside RN/patient questioned SROM. Cervix is 4.5/90/-3, where head can be palpated anteriorly. Palpable BBOW. TAUS performed to confirm cephalic presentation. FHR: Category 1, baseline 125bpm, moderate variability, absent accelerations (but present within the last hour), absent decelerations. [place]: Not picking up contractions, clinically occuring every few minutes. Vital Signs: Last Vital Signs Temp 97.8 F 08/20/25 04:30 Pulse 102 H 08/20/25 07:49 Resp 16 08/20/25 04:30 BP 133/75 08/20/25 07:49 Pulse Ox 100 08/20/25 07:49 Plan Plan: Kylah is a 30yo at 37w1d GA admitted for IOL in the setting of chronic HTN on meds. is otherwise complicated by obesity, asthma, and you provide unknown origin in early August. IOL has included cytotec PV x3. Patient is getting into active labor, s/p epidural placement with ?SROM vs bleeding noted. On exam, cervix is 4.5/90/-3 with BBOW. Cephalic presentation confirmed by TAUS. Uncertain if high leak SROM occurred, as clinically there is an apparent BBOW vs forebag. Diligent monitoring of ongoing vaginal bleeding ongoing. status is reassuring, but I did explain clinically danish bleeding can be representative government relations of rapid cervical change or pathologic conditions such as placental abruption. Continuous FHR monitoring ongoing. Plan to avoid elective augmentation of labor with AROM until GBS treatment is adequate unless expedited delivery is clinically indicated given maternal/ status. BP has been normal to mild range this morning. She had one nonsustained SRBP that was felt to be erroneous during repositioning for epidural placement. No headache, vision changes or RUQ pain. PreE labs normal on admission, will repeat as clinically indicated this morning. BT A+, active T/S on file. Plan PP pitocin and TXA as first line if PPH is noted, given comorbid cHTN and asthma. GBS positive, s/p first dose of ampicillin.
--- NOTE | 2025-08-20 07:58 | PM.ANBPRC ---
[facility] Medical History Vaginal delivery (10/11/22) ?O80 - Encounter for full-term uncomplicated delivery (ICD-10) Migraines ?G43.909 - Migraine, unspecified, not intractable, without status migrainosus (ICD-10) Asthma ?J45.909 - Unspecified asthma, uncomplicated (ICD-10) Hypertension ?I10 - Essential (primary) hypertension (ICD-10) History of endometriosis ?Z87.42 - Personal history of other diseases of the female genital tract (ICD-10) Surgical History [place] teeth extracted ?K08.409 - Partial loss of teeth, unspecified cause, unspecified class (ICD-10) Status post laparoscopy (05/10/21) ?Z98.890 - Other specified postprocedural states (ICD-10) History of tonsillectomy ?Z90.89 - Acquired absence of other organs (ICD-10) Family History Paternal Grandmother Breast cancer, Onset Age: 65 Diabetes Paternal Grandfather Colon cancer, Onset Age: 70 Prostate cancer Uncle Suicide Family/Other Heart disease Father High blood pressure Mother High blood pressure Sister High blood pressure Brother High blood pressure 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 . Nonsmoker. Alcohol use: Denies in What is your current living situation?: I presently have a place to live Problems where you live: no known problems In the past 12 months, utilities in danger of being shut off: no In past 12 months, lack of transportation kept you from medical appts, meetings, work, or getting things needed for daily living: no In the past 12 mos, have been you worried that your food would run out before you had money to buy more?: never true In the past 12 mos, the food you bought just didn't last and you didn't have money to buy more?: never true Smoking Status: Never smoker How often do you have a drink containing alcohol: never How often do you have six or more drinks on one occasion: Never AUDIT-C Alcohol total score: 0 Non-prescribed substance use: denies use How often does anyone, including family, friends and others, physically hurt you: never How often does anyone, including family, friends and others, insult or talk down to you: never How often does anyone, including family, friends and others, threaten you with harm: never How often does anyone, including family, friends and others, scream or curse at you: never Meds Home Medications and Allergies Home Medications ?Medication ?Instructions ?Recorded ?Confirmed ?Type albuterol sulfate 90 mcg/actuation 2 puff inhalation Q4-6H PRN 08/24/24 08/18/25 Rx aerosol inhaler shortness of breath or wheezing #6.7 grams choline bitartrate 300 mg 300 mg PO DAILY 10/13/24 08/18/25 History tablet,extended release docosahexaenoic acid 200 mg 200 mg PO DAILY 10/13/24 08/18/25 History capsule ( DHA) aspirin 81 mg chewable tablet 81 mg PO QDAY 04/16/25 08/18/25 History labetalol 100 mg tablet 100 mg PO BID #180 tabs 05/10/25 08/18/25 Rx Allergies Allergy/AdvReac Type Severity Reaction Status Date / Time No Known Allergies Allergy Verified 08/18/25 14:44 Results Labs Labs: Laboratory Results - last 24 hr 08/19/25 20:30 WBC 7.47 RBC 4.44 Hgb 12.4 Hct 38.8 MCV 87 MCH 28 MCHC 32 RDW Coeff of Enmanuel 12.6 Plt Count 221 Neut % (Auto) 69.0 Lymph % (Auto) 24.5 [place] % (Auto) 5.2 Eos % (Auto) 1.1 Baso % (Auto) 0.1 Neut # (Auto) 5.15 Lymph # (Auto) 1.83 [place] # (Auto) 0.40 Eos # (Auto) 0.08 Baso # (Auto) 0.01 Abs Immat Gran (auto) 0.01 Imm/Tot Granulo (auto) 0.1 BUN 7 Creatinine 0.6 Estimated Creat Clear 193.89 Estimated GFR 124 AST 33 ALT 26 Syphilis IgG Antibody Non-Reactive Blood Type A Positive Antibody Screen NEGATIVE Vital Signs Vital Signs: Last Vital Signs Temp 97.8 F 08/20/25 04:30 Pulse 93 08/20/25 07:53 Resp 16 08/20/25 04:30 BP 127/93 H 08/20/25 07:53 Pulse Ox 92 08/20/25 07:56 Weight: 89.539 kg Height: 149.86 cm Anesthesia Procedures Epidural Insertion Patient Location: OB Start Time: 07:00 Stop Time: 08:00 Start Date: 08/20/25 Stop Date: 08/20/25 Reason for Block: procedure for pain Patient Position: sitting Performed By: Maximilian Hardin Preanesthetic Checklist: IV checked, risks and benefits discussed, monitors and equipment checked, pre-op evaluation, timeout performed and anesthesia consent Prep: chlorhexidine gluconate Monitoring: blood pressure monitoring, continuous pulse oximetry and heart rate Approach: midline Vertebral Space: lumbar (1-5) Epidural Technique: LUCILA saline Needle Type: Tuohy needle Injection Technique: continuous catheter Needle gauge: 17 Needle Length (cm): 10 cm Needle Insertion Depth (cm): 7 Catheter Gauge: 19 Catheter Type: multi-orifice Catheter at skin depth (cm): 13 Test Dose Result: negative and lidocaine 1.5% with epinephrine 1 to 200,000
[2025-08-20] MEDS: LACTATED RINGERS 1000 ML 1,000 ML 125 ML IV (08:08)
[2025-08-20] MEDS: LIDOCAINE 2% (PF) 5 ML VIAL EPIDURAL (08:08)
[2025-08-20 09:11] LABS: Hematocrit* 40.7 % (33.0-51.0); Hemoglobin* 12.8 gm/dL (12.0-16.0); Mean Corpuscular HGB Conc 31 gm/dL (32-36); Mean Corpuscular Hemoglobin 28 pg (26-34); Mean Corpuscular Volume 89 fL (80-100); Red Blood Count* 4.58 m/uL (4.00-5.20); White Blood Count* 11.52 K/uL (4.50-11.00)
[2025-08-20 09:13] LABS: Slide Review Reflex No
[2025-08-20 09:26] LABS: Alanine Aminotransferase* 25 U/L (4-35); Aspartate Amino Transferase* 38 U/L (12-35); Creatinine* 0.6 mg/dL (0.5-1.5); Est. Creatinine Clearance* 193.79; Estimated Glomerular Filt Rate 124 ml/min
[2025-08-20 09:28] LABS: INR 0.97 (0.91-1.10); Prothrombin Time 13.7 Seconds
--- NOTE | 2025-08-20 10:07 | P.OBPN_ITS ---
Subjective Time Seen by Provider: 10:07 Date Seen: 08/20/25 Narrative: Kylah is a 30yo at 37w1d GA admitted for IOL in the setting of chronic HTN on meds. is otherwise complicated by obesity, asthma, and you provide unknown origin in early August. Induction was started with Cytotec overnight, where she received 3 doses. She started having regular/painful contractions around 0630, with pressure. [place] bleeding was noted around 0700, which has persisted through time. Recommend augmentation given possible ongoing abruption. Stat labs are overall reassuring - Hgb stable at 12.8, platelets 266, INR 0.97, aPTT 28 and fibrinogen 428. Discussed options for augmentation, where we mutually agree AROM is indicated next step. Discussed risk of amniotomy including FHR changes, infection, potential for increased bleeding and cord prolapse. After discussion, verbal co nsent was obtained. Objective Exam: General: Alert and oriented. Psych: Appropriate mood and affect Cervix: 5.5/90/-2, fundal pressure applied to bring baby to -1 for AROM. Amniotomy performed with large volume clear fluid. FHR: Category 1-2, normal baseline with periods of minimal to moderate variability. No apparent decelerations, no recent accelerations. Deceleration heard while patient was lying flat on back for AROM, improved with repositioning to left side. AROM performed at 0959, FSE placed. FHR was noted to be at about 80s with rapid improvement to baseline of 140bpm with moderate variability. 10x10 acceleration present in the subsequent 10 minutes. No further decelerations. [place]: Not reliably picking up contractions Vital Signs: Last Vital Signs Temp 97.8 F 08/20/25 04:30 Pulse 96 08/20/25 09:43 Resp 16 08/20/25 04:30 BP 121/98 H 08/20/25 09:43 Pulse Ox 90 08/20/25 10:03 Plan Plan: Kylah is a 30yo at 37w1d GA admitted for IOL in the setting of chronic HTN on meds. is otherwise complicated by obesity, asthma, and you provide unknown origin in early August. IOL has included cytotec PV x3 and now AROM. Cervix is 5.5/90-2 at last check. FSE applied. Labor course notable for danish vaginal bleeding, where explained there is potential concern for ongoing placental abruption. status has overall been reassuring and primarily category 1. Rare periods of minimal variability, and patient did have a single deceleration while she was position flat on her back for AROM. FSE was placed after amniotomy, where baby rapidly recovered from a travis of 80bpm to a baseline 135 beats per minute, moderate variability, 10 x 10 accelerations seen, no further decelerations. Explained that we will continue diligent heart rate monitoring and that a vaginal bleeding. Importantly, her hemoglobin was stable with normal coags checked just prior to amniotomy. If she had large volume vaginal bleeding or nonreassuring heart tones, plan would be to proceed with an emergency . Explained that my hope is with augmentation we will be able to expedite a vaginal delivery safely. If were to be required, we briefly reviewed the risks including bleeding, infection, damage to surrounding structures. All questions answered. Blood type A positive, active type and screen on file. Orders placed to cross- matched for 2 units packed red blood cells. GBS positive, due for next dose of ampicillin at 1100.
[2025-08-20] MEDS: AMPICILLIN 1 GM in 0.9 % SODIUM CHLORIDE Mini-bag 100 ML IVPB (10:52)
[2025-08-20] MEDS: TRANEXAMIC ACID 100 MG/ML INJ 1000 MG IV (11:15)
[2025-08-20] MEDS: OXYTOCIN 30 unit/500 ML in NS 30 UNIT/500 ML BAG 300 UNIT IVPB (11:16)
--- NOTE | 2025-08-20 11:48 | W.PM.VAGDEL1 ---
Procedure Procedure Done: Global Procedure Details: Vacuum assisted vaginal delivery Events: Chronic Hypertension, Labor Induction and Other (Vaginal bleeding intrapartum with concern for partial placental abruption) Intrapartal Events: Labor Induction Delivery augmentation: rupture of membranes Delivery monitor: internal FHT Route of delivery: vacuum extraction Indication for instrumentation: nonreassuring FHR tracing Episiotomy description: None Laceration description: None Estimated blood loss (mL): 170 Anesthesia type: Epidural Disposition: floor Complications: None Narrative: Kylah is a 30 yo at 37w1d GA admitted for induction of labor. is complicated by chronic hypertension on medications, obesity, asthma. heart tones on admission were category 1. Her labor was induced with Cytotec and epidural was utilized for pain management. Mihai vaginal bleeding was noted as she progressed into the active phase of labor, beginning around 0700. Status of bag of zaman: AROM performed intrapartum to expedite delivery. heart tones during active labor were category 1 and 2. She was complete at 1054 and started pushing at 1054. She made adequate descent throughout the second stage of labor. heart tones during second stage of labor were category 2 for recurrent variable decelerations, with increasingly deep travis and slow return to baseline. Given the persistent category II tracing, we proceeded to discuss the risks, benefits and alternatives associated with a vacuum-assisted vaginal delivery. Patient verbally consented to proceeding. Her bladder was emptied via luevano at onset of pushing. Vaginal exam revealed an adequate pelvis, fetus in PATY position, station +3, with an estimated weight of 2793g at 45%ile via US on 08/1025. At 1109, the FSE was removed and a Kiwi vacuum device was applied over the sagittal suture, approximately 3 cm in front of the posterior fontanelle. Vacuum pressure was created with hand pump, not to exceed 500 mm Hg ([place]). The edge of the vacuum cup was carefully palpated, to confirm that no maternal tissue was entrapped under the cup. FHR via external monitor was 120-150bpm while we awaited next contraction. With left hand applying counter pressure on the vacuum cup to prevent pop-off, at 1111 gentle horizontal traction along the pelvic axis was applied in coordination with uterine contraction and maternal pushing. Excellent descent noted, where handle of vacuum was gradually elevated and vertex was with two maternal expulsive and vacuum pull efforts. Zero pop-offs occurred. Delivery occurred after 2 minutes of vacuum application time (largely awaiting contraction) and 1 contraction cycle. The head delivered atraumatically, vacuum cup was then removed, and anterior/posterior shoulders delivered without difficulty. Time of vacuum assisted vaginal was 1111. Nuchal cord: Absent. A viable male was born, appearing stunned immediately with respiratory effort but minimal spontaneous cry with stimulation. The cord was immediately clamped and cut to allow for Pediatrics assessment, during this transition spontaneous cry was noted. Active management of the third stage occurred with IV pitocin, prophylactic IV TXA and gentle cord traction and the placenta delivered spontaneous and intact at 1115. Cord gases sent: yes Cord blood sent for ABO: no details: - Liveborn male fetus at 1111 - weight 3030g - APGARs were 5 and 8 at 1 and 5 minutes respectively - Arterial cord gas: pH 7.22, CO2 58, HCO3 24 and base excess -4.9 Perineum and vagina were inspected, and the following lacerations were noted: None, intact. No repair was required. Bimanual massage was performed, excellent hemostasis and uterine tone noted. Total QBL 170mL. The following counts were correct: sponges, needles, instruments. Mother and infant in stable condition following the . We did completed the brief at the bedside after delivery, offered to return later if patient has questions/concerns. [place] Infant Infant Gender: Male presentation: vertex Placental Delivery Description: Spontaneous Cord Description: 3 Vessels
[2025-08-20] MEDS: IBUPROFEN 600 MG TABLET PO ×2 (13:35→19:29)
[2025-08-20] MEDS: ACETAMINOPHEN 500 MG TABLET 1000 MG PO (19:29)
[2025-08-21 01:14] VITALS: BP 101/69; PULSE 90; RESP 16; TEMP 36.6; O2SAT 96
[2025-08-21] MEDS: IBUPROFEN 600 MG TABLET PO ×4 (02:09→23:15)
[2025-08-21] MEDS: ACETAMINOPHEN 500 MG TABLET 1000 MG PO ×4 (02:10→23:15)
[2025-08-21 06:16] LABS: Hemoglobin* 10.7 gm/dL (12.0-16.0)
[2025-08-21 06:17] VITALS: BP 127/87; PULSE 86; RESP 16; TEMP 36.6; O2SAT 96
[2025-08-21 08:37] VITALS: BP 125/74; PULSE 91; RESP 18; TEMP 36.6; O2SAT 96
[2025-08-21] MEDS: DOCUSATE SODIUM 100 MG CAPSULE PO (09:05)
--- NOTE | 2025-08-21 09:44 | PM.OBDSVD1 ---
DS: Providers Provider Date Seen: 08/21/25 Date of admission: 08/19/25 19:00 Primary care physician: Sofia Grimes MD Admitting Clinician: Jael Foster MD Attending Physician on discharge: Jael Foster MD Date of Discharge: 08/21/25 DS: Diagnosis Discharge Diagnosis (1) Chronic hypertension: Status: Acute (2) Status post vacuum-assisted vaginal delivery: Status: Acute Exam Narrative: Exam Narrative: Physical exam: General: No acute distress Psych: Alert and oriented x4, full affect HEENT: Normocephalic, atraumatic Heart: Regular rate and rhythm, no murmur rub or gallop Lungs: Clear to auscultation bilaterally Abdomen: Normoactive bowel sounds, soft, no tenderness, rebound, or guarding Skin: No lesions or rashes Lower extremities: No edema or erythema Pelvic exam: Scant bleeding on pad Const: Vital Signs, click to edit/add: Vital Signs - 24 hr 08/20/25 09:48 08/20/25 10:01 08/20/25 10:03 Temperature Pulse Rate Pulse Rate [Pulse Oximeter] Respiratory Rate Blood Pressure Blood Pressure [Ri ght Arm] Pulse Oximetry 100 97 90 Oxygen Delivery Me thod 08/20/25 10:07 08/20/25 10:12 08/20/25 10:13 Temperature Pulse Rate 94 Pulse Rate [Pulse Oximeter] Respiratory Rate Blood Pressure 134/101 H Blood Pressure [Ri ght Arm] Pulse Oximetry 100 100 Oxygen Delivery Me thod 08/20/25 10:17 08/20/25 10:20 08/20/25 10:22 Temperature Pulse Rate Pulse Rate [Pulse Oximeter] Respiratory Rate Blood Pressure Blood Pressure [Ri ght Arm] Pulse Oximetry 100 93 100 Oxygen Delivery Me thod 08/20/25 10:27 08/20/25 10:29 08/20/25 10:32 Temperature Pulse Rate Pulse Rate [Pulse Oximeter] Respiratory Rate Blood Pressure Blood Pressure [Ri ght Arm] Pulse Oximetry 98 92 91 Oxygen Delivery Me thod 08/20/25 10:35 08/20/25 10:36 08/20/25 10:37 Temperature 98.1 F Pulse Rate 88 Pulse Rate [Pulse Oximeter] Respiratory Rate 20 Blood Pressure 142/96 H Blood Pressure [Ri ght Arm] Pulse Oximetry 94 Oxygen Delivery Me thod 08/20/25 10:37 08/20/25 10:42 08/20/25 10:44 Temperature Pulse Rate 95 Pulse Rate [Pulse Oximeter] Respiratory Rate Blood Pressure 140/94 H Blood Pressure [Ri ght Arm] Pulse Oximetry 95 98 93 Oxygen Delivery Me thod 08/20/25 11:32 08/20/25 12:02 08/20/25 12:04 Temperature Pulse Rate 96 94 104 H Pulse Rate [Pulse Oximeter] Respiratory Rate Blood Pressure 118/70 Blood Pressure [Ri ght Arm] Pulse Oximetry Oxygen Delivery Me thod 08/20/25 12:06 08/20/25 12:17 08/20/25 12:32 Temperature Pulse Rate 94 90 89 Pulse Rate [Pulse Oximeter] Respiratory Rate Blood Pressure 141/67 H 123/62 120/68 Blood Pressure [Ri ght Arm] Pulse Oximetry Oxygen Delivery Me thod 08/20/25 12:47 08/20/25 13:29 08/20/25 13:32 Temperature Pulse Rate 88 99 103 H Pulse Rate [Pulse Oximeter] Respiratory Rate Blood Pressure 134/63 127/75 111/68 Blood Pressure [Ri ght Arm] Pulse Oximetry Oxygen Delivery Me thod 08/20/25 16:27 08/20/25 21:19 08/21/25 01:14 Temperature 98.1 F 97.6 F 97.8 F Pulse Rate Pulse Rate [Pulse Oximeter] 96 88 90 Respiratory Rate 20 16 16 Blood Pressure Blood Pressure [Ri ght Arm] 106/69 106/72 101/69 Pulse Oximetry 96 96 96 Oxygen Delivery Me thod Room Air Room Air Room Air 08/21/25 06:17 08/21/25 08:37 Temperature 97.9 F 97.8 F Pulse Rate Pulse Rate [Pulse Oximeter] 86 91 Respiratory Rate 16 18 Blood Pressure Blood Pressure [Ri ght Arm] 127/87 125/74 Pulse Oximetry 96 96 Oxygen Delivery Me thod Room Air Room Air OB - DS: Summary Hospital Course Hospital Course: The patient is a 30 year old at 37 weeks gestation that was admitted to the Center on 08/19/25 for IOL due to chronic hypertension. She had a vacuum assisted vaginal delivery. She delivered a viable male infant. She is . the patient has done well. Desires progesterone only control pills. Infant Gender: Male Time Spent with Patient Time attestation: Total time spent providing and/or coordinating discharge services: Discharge Plan Discharge Disposition: Home, Self-Care Date of Admission: 08/19/25 19:00 Attending Provider on Discharge: Jael Foster Consulting Providers: Venita Harris Primary Care Provider: Sofia Grimes Condition: Stable Anticipated Discharge Date/Time: 08/21/25 09:32 Discharge Medications: New acetaminophen 500 mg Tablet 1,000 mg PO Q6H PRN30 Days Qty: 30 0RF docusate sodium 100 mg Capsule 100 mg PO DAILY 30 Days Qty: 30 0RF ibuprofen 600 mg Tablet 600 mg PO Q6H PRN30 Days Qty: 30 0RF Lanolin (HPA) 100 % Cream 1 applic topical Q1H PRN30 Days Qty: 7 0RF norethindrone (contraceptive) 0.35 mg tablet 0.35 mg PO DAILY Qty: 84 0RF Continued DHA 200 mg capsule 200 mg PO DAILY choline bitartrate 300 mg tablet extended release 300 mg PO DAILY albuterol sulfate 90 mcg/actuation HFA aerosol inhaler 2 puff inhalation Q4-6H PRN (Reason: shortness of breath or wheezing) Qty: 6.7 0RF labetalol 100 mg tablet 100 mg PO BID Qty: 180 1RF Discontinued aspirin 81 mg tablet,chewable 81 mg PO QDAY Discharge Orders: Discharge Order (Routine); Ordered 08/21/25 Ordered By: Jael Foster Patient Education: OB Vaginal/Breast Feeding Follow Up Appointments: Sofia Grimes MD [Primary Care Provider, Family Practice] [facility]
--- NOTE | 2025-08-21 13:10 | PM.ANPOST ---
Post Anesthesia Note Post Anesthesia Note Patient seen: Inpatient Respiratory Status: adequate Cardiovascular Status: adequate Mental Status: baseline Pain: adequate Temp: baseline Anesthetic awareness: N/A Complications: none Follow care: none
[2025-08-21 13:55] VITALS: BP 125/79; PULSE 82; RESP 16; TEMP 36.4; O2SAT 97
[2025-08-21] MEDS: SIMETHICONE 80 MG TAB.CHEW PO (15:29)
[2025-08-21 20:37] VITALS: BP 123/81; PULSE 98; RESP 17; TEMP 36.8; O2SAT 98
[2025-08-21 23:21] VITALS: BP 126/83; PULSE 91; RESP 18; TEMP 36.4; O2SAT 98
[2025-08-22 03:00] VITALS: BP 133/84; PULSE 92; RESP 16; TEMP 37; O2SAT 98
[2025-08-22] MEDS: CALCIUM CARBONATE 500 MG CHEW PO (04:05)
[2025-08-22 08:18] VITALS: BP 115/78; PULSE 81; RESP 16; O2SAT 97
[2025-08-22] MEDS: DOCUSATE SODIUM 100 MG CAPSULE PO (08:25)
[2025-08-22] MEDS: IBUPROFEN 600 MG TABLET PO (08:25)
--- NOTE | 2025-08-22 12:05 | PM.OBDSVD1 ---
DS: Providers Provider Date Seen: 08/22/25 Date of admission: 08/19/25 19:00 Primary care physician: Sofia Grimes MD Admitting Clinician: Jael Foster MD Attending Physician on discharge: Jael Foster MD Exam Narrative: Exam Narrative: General: No acute distress Psych: Alert and oriented x4, full affect HEENT: Normocephalic, atraumatic Heart: Regular rate and rhythm, no murmur rub or gallop Lungs: Clear to auscultation bilaterally Abdomen: Normoactive bowel sounds, soft, no tenderness, rebound, or guarding Skin: No lesions or rashes Lower extremities: No edema or erythema Pelvic exam: Scant bleeding on pad Const: Vital Signs, click to edit/add: Vital Signs - 24 hr 08/21/25 13:55 08/21/25 20:37 08/21/25 23:21 Temperature 97.6 F 98.2 F 97.5 F L Pulse Rate [Pulse Oximeter] 82 98 91 Respiratory Rate 16 17 18 Blood Pressure [Ri ght Arm] 125/79 123/81 126/83 Pulse Oximetry 97 98 98 Oxygen Delivery Me thod Room Air Room Air Room Air 08/22/25 03:00 08/22/25 08:18 Temperature 98.6 F Pulse Rate [Pulse Oximeter] 92 81 Respiratory Rate 16 16 Blood Pressure [Ri ght Arm] 133/84 115/78 Pulse Oximetry 98 97 Oxygen Delivery Me thod Room Air Room Air OB - DS: Summary Hospital Course Hospital Course: The patient is a 30 year old at 37 weeks gestation that was admitted to the [facility] on 08/19/25 for IOL due to chronic hypertension. She had a vacuum assisted vaginal delivery. She delivered a viable male . She is . the patient has done well. Desires progesterone only control pills. She decided to stay an additional night. She worries about the bruise left on her infant's head from the vacuum application. Area is soft without swelling/ fluctuant. Reassured patient that bruising will heal. Gender: Male Time Spent with Patient Time attestation: Total time spent providing and/or coordinating discharge services: Discharge Plan Discharge Disposition: Home, Self-Care Date of Admission: 08/19/25 19:00 Attending Provider on Discharge: Jael B Vu Consulting Providers: Venita Harris Primary Care Provider: Sofia Grimes Condition: Stable Anticipated Discharge Date/Time: 08/21/25 09:32 Discharge Medications: New acetaminophen 500 mg Tablet 1,000 mg PO Q6H PRN30 Days Qty: 30 0RF docusate sodium 100 mg Capsule 100 mg PO DAILY 30 Days Qty: 30 0RF ibuprofen 600 mg Tablet 600 mg PO Q6H PRN30 Days Qty: 30 0RF Lanolin (HPA) 100 % Cream 1 applic topical Q1H PRN30 Days Qty: 7 0RF norethindrone (contraceptive) 0.35 mg tablet 0.35 mg PO DAILY Qty: 84 0RF Continued DHA 200 mg capsule 200 mg PO DAILY choline bitartrate 300 mg tablet extended release 300 mg PO DAILY albuterol sulfate 90 mcg/actuation HFA aerosol inhaler 2 puff inhalation Q4-6H PRN (Reason: shortness of breath or wheezing) Qty: 6.7 0RF labetalol 100 mg tablet 100 mg PO BID Qty: 180 1RF Discontinued aspirin 81 mg tablet,chewable 81 mg PO QDAY Discharge Orders: Discharge Order (Routine); Ordered 08/21/25 Ordered By: Jael Foster Patient Education: OB Over the Counter Medication Information, OB Vaginal/Breast Feeding Follow Up Appointments: Sofia Grimes MD [Primary Care Provider, Family Practice] Forms: [facility] Info Instructions Discharge Comments: Discharge Planning - Follow up in 3-5 days for blood pressure check in clinic - Follow Up: follow-up at 2 weeks and 6 weeks in clinic
== END 2025-08-22 12:30 | disposition home or self-care (01) | DRG 805 ==
PROVIDERS: Obstetrics & Gynecology; Admitting Provider Obstetrics & Gynecology; PCP Family Medicine; Visit Provider Obstetrics & Gynecology
DX: O10.92 Unspecified pre-existing hypertension complicating childbirth (principal); O45.8X3 Other premature separation of placenta, third trimester; Z37.0 Single live birth; O76 Abnormality in fetal heart rate and rhythm complicating labor and delivery; G89.18 Other acute postprocedural pain; O99.824 Streptococcus B carrier state complicating childbirth; O99.214 Obesity complicating childbirth; E66.9 Obesity, unspecified; O99.52 Diseases of the respiratory system complicating childbirth; J45.909 Unspecified asthma, uncomplicated; Z79.899 Other long term (current) drug therapy; Z3A.37 37 weeks gestation of pregnancy
CPT/HCPCS: 01967; 36415; 59200; 64488; 82565; 84450; 84460; 84520; 85018; 85025; 85027; 85384; 85610; 85730; 86780; 86850; 86900; 86901; 86922; 94761; A9270; J0290; J2270; J2405; J2795; J3010; J7120